=== PATIENT | male | born 1950 | race Caucasian/White ===

== ENCOUNTER 2019-01-05 09:56 | Inpatient (IN) ==
[2019-01-05 12:57] LABS: BASO# 0.04 X1000 (0.0-0.2); BASO% 0.6 % (0.0-0.8); EOS# 0.17 X1000 (0.0-0.7); EOS% 2.8 % (0.0-10.0); HEMATOCRIT 43.4 % (42.0-52.0); HEMOGLOBIN 14.1 g/dL (14.0-18.0); IMM GRAN# 0.12 X1000 (0.0-0.04); IMM GRAN% 1.9 % (0.0-0.5); LYMPH# 1.54 X1000 (1.2-3.4); LYMPH% 24.9 % (20.5-51.1); MCH 30.1 PG (27-31); MCHC 32.5 g/dL (33-37); MCV 92.5 FL (81-99); MONO# 0.75 X1000 (0.11-0.59); MONO% 12.1 % (1.7-9.3); MPV 9.1 FL (7.4-10.4); NEUT# 3.56 X1000 (1.4-6.5); NEUT% 57.7 % (42.2-75.2); PLT 236 X1000 (130-400); RBC 4.69 XMIL (4.7-6.1); RDW 13.6 % (11.5-14.5); WBC 6.18 X1000 (4.8-10.8)
[2019-01-05 13:01] LABS: INR 0.91
[2019-01-05 13:02] LABS: PTT 27.6 Seconds (22.3-41.8)
--- NOTE | 2019-01-05 13:02 | Diag Imaging Result Doc PS360 ---
EXAM: CHEST-2 VIEWS INDICATION: SOB TECHNIQUE: 2 views COMPARISON: 08/13/2017 FINDINGS: The lungs are grossly clear. There is no discrete pleural fluid collection or pneumothorax. The cardiomediastinal silhouette and central vasculature are grossly unremarkable. IMPRESSION: No evidence of acute pathology by plain radiograph. Electronically signed by Pop Umana 01/05/2019 1:00 PM
[2019-01-05 13:04] LABS: D-DIMER 1.41 ug/mLFEU (0.0-0.52)
[2019-01-05 13:12] LABS: ALLEN TEST YES; BE 4.5 mmoll (-3.0-3.0); BLOOD TYPE ARTERIAL; HCO3-(ACT) 28.3 mmoll (20.0-26.0); O2(CT) 18.6 mL/dL (15.0-23.0); PCO2(98.6) 49 mmHg (35-45); PO2(98.6) 66 mmHg (60-100); SAMPLE BLOOD; SAO2 94.7 % (95.0-100.0); THB 14.4 g/dL (11.5-17.4)
[2019-01-05 13:12] LABS: AGAP 11; ALB/GLOB RATIO 1.3; ALBUMIN 3.9 g/dL (3.5-5.0); ALKALINE PHOSPHATASE 60 U/L (32-122); BUN 16 mg/dL (8-22); CALCIUM 9.5 mg/dL (8.8-10.2); CHLORIDE 102 mmol/L (98-107); CK PROFILE 55 U/L (24-204); COSMO 291; CREATININE 0.9 mg/dL (0.7-1.2); ESTIMATED GFR > 60; GLUCOSE 145 mg/dL (70-104); GOT 11 U/L (10-34); GPT 10 U/L (10-44); MAGNESIUM 1.6 mg/dL (1.5-2.7); POTASSIUM 4.6 mmol/L (3.5-5.1); SODIUM 144 mmol/L (136-145); TCO2 31 mmol/L (25-35); TOTAL BILIRUBIN 0.23 mg/dL (0.20-1.00); TOTAL PROTEIN 6.8 g/dL (6.3-8.3)
[2019-01-05 13:13] LABS: MODALITY ROOM AIR
--- NOTE | 2019-01-05 13:19 | EKG Report ---
Test Performed on : 01/05/2019 1:07:16 PM Test Reason : SOB Blood Pressure : / mmHG Vent. Rate : 085 BPM Atrial Rate : 085 BPM P-R Int : 200 ms QRS Dur : 116 ms QT Int : 368 ms P-R-T Axes : 040 072 044 degrees QTc Int : 437 ms Normal sinus rhythm. Normal ECG When compared with ECG of 29-NOV-2007 11:57, Nonspecific T wave abnormality no longer evident in Anterior leads QT has shortened Confirmed by Owen TATE, Yaron Dockery ([id number]) on 01/07/2019 8:19:59 AM
[2019-01-05] MEDS ORDERED: LASIX IV ONE (13:30)
[2019-01-05] MEDS: LOVENOX SUBQ SCH (14:03)
[2019-01-05] MEDS: DUONEB (A & A) INH SCH ×3 (15:51→23:25)
--- NOTE | 2019-01-05 15:59 | Diag Imaging Result Doc PS360 ---
EXAM: CT ANGIOGRM PULMONARY ARTERIES HISTORY: chest pain TECHNIQUE: CT chest with intravenous contrast. Pulmonary arterial protocol with MIP images. COMPARISON: None. FINDINGS: No pleural effusions. No cardiomegaly. No thoracic aortic aneurysm or dissection. Normal opacification of the pulmonary arteries and their major branches. There are small calcified right hilar lymph nodes with scattered granuloma. Mild emphysematous changes. No consolidation. No bronchiectasis. IMPRESSION: No pulmonary emboli. This exam was performed using automated exposure control, adjustment of mA or kV according to patient size, and/or use of iterative reconstruction technique. Electronically signed by Willis Phillips 01/05/2019 3:57 PM
--- NOTE | 2019-01-05 18:17 | HISTORY AND PHYSICAL ---
CHIEF COMPLAINT: Shortness of breath. HISTORY OF PRESENT ILLNESS: This is a 68-year-old white gentleman complaining of chest congestion, cough, and shortness of breath. The patient was getting short of breath with minimal exertion. The patient was using his bronchodilator treatment. I started him on Lasix and potassium. The patient was not feeling any better. The patient claimed he was getting worse. I evaluated the patient in the office and decided to admit him for further care. The patient does have chronic cough with scanty sputum production. The patient does have some chills. No high- grade fever. The patient did have bilateral leg swelling. I did check his overnight pulse oximeter which was very borderline for hypoxemia. No nausea or vomiting. The patient does use E- cigarette. I did an echocardiogram 2 weeks ago to check for pulmonary hypertension and it was very borderline. No pleuritic type of chest pain or hemoptysis. The patient does have a runny nose, stuffy nose, sinus drainage. No postnasal drip. No typical chest pain or palpitations. He does have some orthopnea. No PND. Denied abdominal pain, nausea, vomiting. No diarrhea, blood, or mucus in the stool. No dysuria. The patient does have polyuria, polydipsia, at times urinary incontinence, bilateral leg swelling. No focal numbness, tingling, weakness. The patient does have a history of mood disorder, schizoaffective disorder, being followed up by psychiatrist. Claims compliant to medication. Arthritic pain in the knee. No focal numbness, tingling, weakness. Unquantified weight gain. No further history available at this time. ALLERGIES: Penicillin and sulfa. HOME MEDICATIONS: Albuterol, benztropine, Depakote, Lasix, , Zyprexa, potassium, propranolol, Requip, Zocor, Spiriva. PAST MEDICAL HISTORY: Significant for COPD, hyperlipidemia, restless legs syndrome, schizoaffective disorder, mood disorder, hyperlipidemia, bilateral leg swelling. PERSONAL HISTORY: Single. Smokes E-cigarettes. Denied alcohol or substance abuse. FAMILY HISTORY: Father of congestive heart failure. Mother of aspiration pneumonia. She did have a problem with heart disease. REVIEW OF SYSTEMS: As per HPI. Patient was complaining of pain in the lower back. PHYSICAL EXAMINATION: GENERAL: Elderly white gentleman, in mild distress. VITAL SIGNS: Blood pressure 125/80, pulse 94, respirations 20, temperature 98 degrees. SKIN: Normal turgor. HEENT: Head atraumatic, normocephalic. [place] conjunctivae. Anicteric sclerae. Extraocular muscle movement normal. Fundus cannot be penetrated. Good oral hygiene. No tonsillopharyngeal congestion or exudate. Ears and nose benign. NECK: Supple. No JVD, thyromegaly, or lymphadenopathy. CHEST: Bibasilar crepitation. Occasional wheezing. No rales. CARDIOVASCULAR: S1 and S2 heard. No gallop or thrill. ABDOMEN: Soft, globular. Bowel sounds present. EXTREMITIES: No cyanosis, clubbing. No acute DVT. Bilateral leg swelling. DIGITAL ARCHIVIST: Alert, awake. Able to move all 4 limbs. MUSCULOSKELETAL: Crepitation in both the knee joints. Tenderness lumbosacral spine. DIAGNOSTIC STUDIES: I did check his is electrolytes. Blood glucose was 145. ProBNP 58. Cardiac isoenzymes were normal. Blood gas, pH 7.4, pCO2 49, PO2 was 66; this was done on room air. PT/INR 0.91, PTT 27.6. D-dimer was 1.41. CBC: Hemoglobin 14.1, hematocrit 43.4, platelet count 236,000, WBC count 6.18. Chest x-ray: No evidence of acute pathology by plain x-ray. I did CTA of the pulmonary artery because of elevated D-dimer and it was negative for pulmonary embolism. Venous Doppler, preliminary report negative for DVT. CONSIDERATION: 1. Patient admitted with shortness of breath, most likely chronic obstructive pulmonary disease exacerbation, not responding to outpatient treatment. 2. Bilateral leg swelling. Possibility of congestive heart failure cannot be ruled out. 3. Morbid obesity. 4. Schizoaffective disorder. 5. Check for DVT and pulmonary embolism. 6. Low back pain. 7. Hyperlipidemia. 8. Restless legs syndrome. PLAN: Admit the patient. Bronchodilator treatment, close observation, oxygen. Overall plan discussed with the patient and he is in agreement. Continue home medications. cc: MD KENDRA Tyler
--- NOTE | 2019-01-05 19:46 | Diag Imaging Result Doc PS360 ---
EXAM: LUMBAR SPINE 2-VIEWS HISTORY: BACK PAIN TECHNIQUE: AP and lateral, three views COMPARISON: 11/01/2015 FINDINGS: There is good alignment to the lumbar spine. Mild old compression deformity to the L1 vertebra. No new compressed vertebra. No subluxation. Small degenerative bone spurring. Moderate atherosclerosis. IMPRESSION: Stable exam Electronically signed by Willis Phillips 01/05/2019 7:43 PM
[2019-01-05] MEDS: ZYPREXA PO SCH (20:54)
[2019-01-05] MEDS: DEPAKOTE ER PO SCH (20:55)
[2019-01-05] MEDS: REQUIP PO SCH (20:55)
[2019-01-05] MEDS: PATIENT'S OWN MED PO SCH (20:55)
[2019-01-05] MEDS: COGENTIN PO SCH (20:55)
[2019-01-05] MEDS: INDERAL PO SCH (20:55)
[2019-01-05] MEDS: ZOCOR PO SCH (20:55)
[2019-01-05] MEDS: VENTOLIN HFA INH SCH (21:32)
[2019-01-06 06:41] LABS: BASO# 0.04 X1000 (0.0-0.2); BASO% 0.6 % (0.0-0.8); EOS# 0.21 X1000 (0.0-0.7); HEMATOCRIT 40.5 % (42.0-52.0); HEMOGLOBIN 13.3 g/dL (14.0-18.0); IMM GRAN# 0.11 X1000 (0.0-0.04); IMM GRAN% 1.6 % (0.0-0.5); LYMPH# 2.43 X1000 (1.2-3.4); LYMPH% 35.3 % (20.5-51.1); MCH 30.2 PG (27-31); MCHC 32.8 g/dL (33-37); MONO# 1.18 X1000 (0.11-0.59); MONO% 17.1 % (1.7-9.3); MPV 9.1 FL (7.4-10.4); NEUT# 2.92 X1000 (1.4-6.5); NEUT% 42.4 % (42.2-75.2); PLT 211 X1000 (130-400); RDW 13.5 % (11.5-14.5); WBC 6.89 X1000 (4.8-10.8)
--- NOTE | 2019-01-06 06:44 | PROGRESS NOTE ---
DATE: 01/06/2019 SUBJECTIVELY: Mr. Bro is doing some better. The patient does have vague chest pain, dyspnea on exertion. Multiple risk factors for coronary artery disease. I did a CT scan of the chest which was negative for pulmonary embolism. His venous Doppler was negative. OBJECTIVE: Vital Signs: Vital signs noted. Neck: Supple. No JVD. Lungs: Bibasilar crepitations. Occasional wheezing. CVS: S1 and S2 heard. Abdomen: Soft, globular. Bowel sounds present. ELECTROTYPE FINISHER: Alert, awake. Able to move all 4 limbs. Vague tenderness lumbosacral spine. LABORATORY DATA: Done yesterday noted. D-dimer was elevated. The patient had x-ray done on the lumbosacral spine which did reveal mild compression deformity of L1. Moderate atherosclerosis, small degenerative bone spurring. ASSESSMENT: 1. COPD exacerbation. 2. Dyspnea on exertion with multiple risk factors for coronary artery disease. I am going to consider myocardial perfusion scan. Continue rest of the treatment. Close observation. 3. Fall precaution. 4. Encouraged smoking cessation. PLAN: Overall plan discussed with the patient and he is in agreement. cc: Pasha Goodrich MD
[2019-01-06 07:09] LABS: AGAP 10; ALB/GLOB RATIO 1.2; ALBUMIN 3.4 g/dL (3.5-5.0); ALKALINE PHOSPHATASE 52 U/L (32-122); BUN 20 mg/dL (8-22); CALCIUM 8.8 mg/dL (8.8-10.2); CHLORIDE 100 mmol/L (98-107); COSMO 289; CREATININE 0.9 mg/dL (0.7-1.2); ESTIMATED GFR > 60; GLUCOSE 156 mg/dL (70-104); GOT 10 U/L (10-34); GPT 8 U/L (10-44); MAGNESIUM 1.7 mg/dL (1.5-2.7); POTASSIUM 3.7 mmol/L (3.5-5.1); SODIUM 142 mmol/L (136-145); TCO2 32 mmol/L (25-35); TOTAL BILIRUBIN 0.29 mg/dL (0.20-1.00); TOTAL PROTEIN 6.2 g/dL (6.3-8.3)
[2019-01-06] MEDS: DUONEB (A & A) INH SCH ×5 (08:29→23:19)
[2019-01-06] MEDS: SPIRIVA INH SCH (08:31)
[2019-01-06] MEDS: VENTOLIN HFA INH SCH ×2 (08:31→19:45)
[2019-01-06] MEDS: INDERAL PO SCH ×2 (09:30→21:14)
[2019-01-06] MEDS: ASPIRIN EC PO SCH (09:30)
[2019-01-06] MEDS: COGENTIN PO SCH ×2 (09:30→21:15)
[2019-01-06] MEDS: PATIENT'S OWN MED PO SCH ×3 (09:31→21:16)
[2019-01-06] MEDS: LOVENOX SUBQ SCH (13:54)
[2019-01-06] MEDS: DEPAKOTE ER PO SCH (21:15)
[2019-01-06] MEDS: REQUIP PO SCH (21:15)
[2019-01-06] MEDS: ZOCOR PO SCH (21:15)
[2019-01-06] MEDS: ZYPREXA PO SCH (21:19)
--- NOTE | 2019-01-07 06:13 | Extremity Venous Study ---
PROCEDURE NAME: Venous U/S Bilateral Legs - 01/05/2019 REQUESTING PHYSICIAN: Dr. Goodrich WATER SOFTENER SERVICER AND INSTALLER: [place]. INDICATIONS: 1. Edema and pain, left leg worse. 2. History of DVT in the left. EQUIPMENT: [employer] Vivid E9 ultrasound system with a 9 L-D transducer. FINDINGS: Images of the bilateral lower extremity venous systems were obtained in both sagittal and transverse planes. Doppler was used to evaluate veins for spontaneity, phasicity, respiratory excursion, and digital augmentation. RESULTS: It appears the left greater saphenous vein has been harvested and is surgically absent. There is reflux noted in the right common femoral vein. There is no obvious superficial or deep venous thrombosis noted. INTERPRETATION: Reflux noted in the right common femoral vein but no obvious superficial or deep venous thrombosis noted. cc: MD Pasha Geller MD
--- NOTE | 2019-01-07 06:56 | PROGRESS NOTE ---
DATE: 01/07/2019 SUBJECTIVE: Mr. Menjivar is feeling some better. He still gets short of breath with exertion. He denied any fever or chills. Does have cough with scanty sputum production. No nausea or vomiting. OBJECTIVE: Vital Signs: Noted. Neck: Supple. No JVD. Lungs: Bibasilar crepitations. Heart: S1 and S2 heard. Abdomen: Soft, globular. Bowel sounds present. BOOK TRIMMER: Alert, awake. Able to move all 4 limbs. Minimal swelling around ankle and leg. CONSIDERATION: 1. Shortness of breath, most likely due to chronic obstructive pulmonary disease. 2. Chronic respiratory failure. The patient is scheduled to have a stress test today. The patient had an echocardiogram done as an outpatient. 3. Schizophrenia. 4. Hyperlipidemia, on Zocor. PLAN: Plan is to evaluate the patient for home oxygen need after reviewing stress test. Planning to discharge patient home soon. Overall plan discussed with the patient and he is in agreement. Encouraged smoking cessation and weight reduction. cc: Pasha Goodrich MD
[2019-01-07] MEDS: SPIRIVA INH SCH (07:06)
[2019-01-07] MEDS: DUONEB (A & A) INH SCH ×3 (07:06→15:51)
[2019-01-07] MEDS: VENTOLIN HFA INH SCH (07:09)
[2019-01-07 08:17] LABS: AGAP 8; BUN 16 mg/dL (8-22); CALCIUM 8.8 mg/dL (8.8-10.2); CHLORIDE 101 mmol/L (98-107); COSMO 283; CREATININE 0.8 mg/dL (0.7-1.2); ESTIMATED GFR > 60; GLUCOSE 113 mg/dL (70-104); POTASSIUM 4.2 mmol/L (3.5-5.1); SODIUM 141 mmol/L (136-145); TCO2 32 mmol/L (25-35)
[2019-01-07] MEDS ORDERED: LEXISCAN ONE (08:35)
[2019-01-07] MEDS ORDERED: LASIX PO SCH (09:00)
[2019-01-07] MEDS ORDERED: KLOR-CON PO SCH (09:00)
[2019-01-07] MEDS: INDERAL PO SCH (10:18)
[2019-01-07] MEDS: COGENTIN PO SCH (10:18)
[2019-01-07] MEDS: ASPIRIN EC PO SCH (10:19)
[2019-01-07] MEDS: PATIENT'S OWN MED PO SCH (10:20)
--- NOTE | 2019-01-07 12:50 | Diag Imaging Result Document ---
PROCEDURE NAME: MYOCARDIAL PERF SCAN, STR/REST - 01/06/2019 PROCEDURE PERFORMED: Lexiscan Cardiolite stress test. DESCRIPTION OF PROCEDURE: Lexiscan was infused per standard protocol. There was no chest pain. Baseline electrocardiogram revealed normal sinus rhythm, right bundle branch block. Stress electrocardiogram was negative for ischemia. There were 41 mCi of Cardiolite injected for the stress phase and 42.3 mCi of Cardiolite injected for the rest phase. Gated SPECT images were obtained in standard views. Images revealed significant chest wall and diaphragmatic attenuation. There is a moderate size, moderate grade, fixed defect noted in the inferior wall, in the inferoseptal wall. There is no evidence of ischemia. This could represent significant attenuation defect as well. Cannot rule out scar. Left ventricular ejection fraction by gated SPECT was 67%. Left ventricular cavity size was normal. CONCLUSIONS: 1. No chest pain. 2. Negative Lexiscan stress electrocardiogram. 3. Myocardial perfusion images revealed normal left ventricular cavity size. There is no evidence of ischemia. 4. There is a moderate size, moderate grade, fixed defect in the inferior, inferoseptal wall with significant diaphragmatic and chest wall attenuation. This could represent a scar. Cannot rule out attenuation defect. 5. Left ventricular ejection fraction by gated SPECT was 67%. cc: MD Pasha Mike MD
[2019-01-07] MEDS: LOVENOX SUBQ SCH (13:48)
[2019-01-07 16:00] VITALS: BP 114/64
--- NOTE | 2019-02-10 20:24 | DISCHARGE SUMMARY ---
ADMISSION DATE: 01/05/2019 DISCHARGE DATE: 01/07/2019 FINAL DISCHARGE DIAGNOSES: 1. Chronic obstructive pulmonary disease exacerbation. 2. Cor pulmonale. 3. Morbid obesity. 4. Chest pain, suggestive of unstable angina. 5. Schizoaffective disorder. 6. Low back pain. 7. Restless leg syndrome. 8. Hyperlipidemia. HISTORY OF PRESENT ILLNESS: Mr. Menjivar is a 68-year-old white gentleman, admitted with shortness of breath, increasing cough, bilateral leg swelling, also chest pain, decreased exercise tolerance, not responding to outpatient treatment. Patient was getting short of breath with minimal exertion. I evaluated patient in the office. Decided to admit him for further care. Patient was admitted to telemetry bed. His O2 saturation in the office at times was staying low. Patient was placed on telemetry. Patient was started on oxygen, bronchodilator treatment, symptomatic treatment. We continued his home medication. Patient had elevated D-dimer. I did venous Doppler. It did show reflux noted in the right common femoral vein, but no obvious DVT. I did CT of the pulmonary artery and there was no pulmonary embolism. Because of chest pain, I did myocardial perfusion study. It was negative Lexiscan stress electrocardiogram. Myocardial perfusion images revealed normal left ventricular cavity size, no evidence of ischemia, moderate size, moderate grade fixed defect in the inferior and inferoseptal mcall[place] with significant diaphragmatic and chest wall attenuation. This could present scar. Cannot rule out attenuation defect. Ejection fraction was 67%. Patient was complaining of low back pain. I did x-ray of the lumbosacral spine which did reveal mild old compression deformity to the L1, small degenerative bone spurring, and moderate atherosclerosis. Overall, patient's clinical condition stabilized and improved. I had a lengthy discussion with patient about smoking cessation, use oxygen at home all the time. Discharged him on Lasix, bronchodilator treatment. Follow up with me as scheduled in 7 days. Offered patient home health, but he declined. Encouraged weight reduction. I am going to consider sleep apnea test as an outpatient. In case of more distress, call us back or go to emergency room. Overall discharge condition satisfactory. cc: Pasha Goodrich MD
== END 2019-01-07 18:09 | disposition home or self-care (01) | DRG 191 ==
LOC: DIRADM 09:56 → 4N 12:06
PROVIDERS: ADMIT Internal Medicine; ATTEND Internal Medicine
CPT/HCPCS: 71020; 71046; 71275; 72100; 78452; 80048; 80053; 82550; 82805; 83735; 83880; 84484; 85025; 85379; 85610; 85730; 93005; 93010; 93017; 93970; 94640; 94762; A9270; A9500; J1650; J1940; J2785; Q9967

== ENCOUNTER 2019-09-12 17:07 | Inpatient (IN) ==
[2019-09-12 18:15] LABS: BASO# 0.04 X1000 (0.0-0.2); BASO% 0.2 % (0.0-0.8); EOS# 0.09 X1000 (0.0-0.7); EOS% 0.5 % (0.0-10.0); HEMATOCRIT 40.9 % (42.0-52.0); HEMOGLOBIN 12.9 g/dL (14.0-18.0); IMM GRAN# 0.15 X1000 (0.0-0.04); IMM GRAN% 0.9 % (0.0-0.5); LYMPH# 1.38 X1000 (1.2-3.4); LYMPH% 8.1 % (20.5-51.1); MCH 28.4 PG (27-31); MCHC 31.5 g/dL (33-37); MCV 89.9 FL (81-99); MONO# 3.34 X1000 (0.11-0.59); MONO% 19.6 % (1.7-9.3); MPV 9.5 FL (7.4-10.4); NEUT# 12.04 X1000 (1.4-6.5); NEUT% 70.7 % (42.2-75.2); PLT 286 X1000 (130-400); RBC 4.55 XMIL (4.7-6.1); RDW 13.8 % (11.5-14.5); WBC 17.04 X1000 (4.8-10.8)
[2019-09-12] MEDS ORDERED: DUONEB (A & A) INH ONE (18:19)
--- NOTE | 2019-09-12 18:22 | PROVIDER DOCUMENTATION ---
HPI-Syncope/Dizziness - General Chief Complaint: Fall Stated Complaint: SYNCOPE/FALL Time Seen by Provider: 09/12/19 18:00 Source: patient, family, EMS Allergies/Adverse Reactions: Patient Allergies Allergy/AdvReac Type Severity Reaction Status Date / Time Penicillins Allergy ITCHING Verified 01/05/19 13:15 Sulfa (Sulfonamide Allergy ITCHING Verified 01/05/19 13:15 Antibiotics) Home Medications: Home Medication List Medication Instructions Recorded Confirmed Last Taken Type Benztropine Mesylate 0.5 mg PO BID 01/05/19 09/12/19 01/05/19 History Divalproex Sodium [Divalproex 1,500 mg PO HS 01/05/19 09/12/19 01/04/19 History Sodium ER] Olanzapine 20 mg PO HS 01/05/19 09/12/19 01/04/19 History Potassium Chloride E.r. [Klor-Con] 10 meq PO BID 01/05/19 09/12/19 01/05/19 History Propranolol HCl 20 mg PO BID 01/05/19 09/12/19 01/05/19 History Ropinirole HCl 0.25 mg PO HS 01/05/19 09/12/19 01/04/19 History Tiotropium Rosser Inhaler 18 mcg INHALATION DAILY 01/05/19 09/12/19 01/04/19 History [Spiriva] Albuterol 2.5MG/Ipratrop 0.5MG 3 ml INH [id number] neb 01/07/19 09/12/19 Unknown Rx [Duoneb (A & A)] Albuterol Sulfate [Proair Hfa] 8.5 gm INHALATION 4XDAY #0 01/07/19 09/12/19 01/04/19 Rx Aspirin EC 81 mg PO DAILY tab 01/07/19 09/12/19 Unknown Rx ATORVAstatin [Lipitor] 80 mg PO DAILY 09/12/19 09/12/19 Unknown History Sitagliptin Phos/Metformin HCl 1 tab PO BID 09/12/19 09/12/19 Unknown History [Janumet 50-500 mg Tablet] - History of Present Illness-Syncope/Dizzy Nature of Presenting Problem: Patient is a 69yo M who presents, via EMS, accompanied by family after a fall which occurred this afternoon. Patient reports he was walking down his back brayan ps when he fell down. States he is unsure whether he slipped and fell or if he "blacked out," however reports he believes he "blacked out." Patient denies any preceding symptoms. Reports once on the ground, he was unable to get back up and he laid down on the ground outside for unknown amount of time. States his nephew found patient and called EMS. Patient denies any pain or complaints at this ester e, however reports he "can't move his right arm." Denies any headache, neck pain, back pain, extremity pain, CP, or SOB. Upon examination, patient is alert to person and place. Family members at bedside report patient will intermittently experience confusion "but be fine the next day." PERRLA 2mm. E FABIAN. Dirt noted to patient's face. Prior Episodes: reports: single episode today Onset/Duration: reports: this afternoon (unsure exact time) Timing: reports: improving Position/Activity at time of episode: reports: activity (walking down steps to backyard) Symptoms prior to episode: reports: none Context: reports: unknown (unsure; patient reports he thinks he "blacked out" but is not sure) Loss of Consciousness: unsure Location of injury. (If syncope resulted in an injury.): reports: RUE (Abrasion noted to R dorsal forearm, however patient denies pain) Current Symptoms: reports: none/feels normal Recently Seen Here or By Another Healthcare Provider: No Review of Systems - Adult - REVIEW OF SYSTEMS - ADULT Constitutional: reports: no symptoms reported. denies: chills, fever Eyes: reports: double vision (only when wearing his glasses; reports he saw eye yesterday who changed prescription although does not have new glasses yet). denies: decreased vision, blurred vision, eye pain Ears, Nose, Mouth & Throat: reports: no symptoms reported Cardiovascular: reports: no symptoms reported. denies: chest pain, palpitations Respiratory: reports: chronic cough (COPD), wheezing (chronic - COPD) Gastrointestinal: reports: constipation. denies: nausea, vomiting Genitourinary: reports: no symptoms reported Musculoskeletal: reports: see HPI, other ("can't move right arm"). denies: back pain, neck pain Integumentary: reports: see HPI, skin sores/ulcer Neurological: reports: see HPI, syncope. denies: dizziness/vertigo, headache/migraines, seizure Psychiatric: reports: no symptoms reported Endocrine: reports: no symptoms reported Past History - Adult - PAST MEDICAL HISTORY-ADULT Review of Records: reports: Nursing Assessment Review, Medications Reviewed Respiratory: reports: COPD Endocrine/Immune: reports: Diabetes - IMMUNIZATION STATUS Childhood Immunizations: See Nurse Assessment Flu Vaccine: See Nurse Assessment - FAMILY HISTORY Family History: reviewed, not pertinent - SOCIAL HISTORY Smoking: other (former) Physical Exam-General - PHYSICAL EXAM-ADULT Initial Vital Signs Reviewed: Yes - CONSTITUTIONAL General Appearance: appears well, alert, no apparent distress. negative: lethargic, slow to respond, obtunded - EYES Eyes: PERRL/EOMI (2mm), pink conjunctivae. negative: EOM palsy, scleral icterus - HEAD, EARS, NOSE, MOUTH & THROAT HENMT: normocephalic/atraumatic, moist mucous membranes, other (dirt noted to face). negative: angioedema - NECK Neck: non-tender, full range of motion, supple, normal inspection. negative: C- spine tenderness, limited range of motion - RESPIRATORY Respiratory: chest non-tender, lungs clear, no pleuratic chest pain, no respiratory distress, no accessory muscle use, wheezing (expiratory; all lung multani). negative: crackles, rales, rhonchi, stridor, retractions, splinting - CARDIOVASCULAR Cardiovascular: no gallop, tachycardia (108) - GASTROINTESTINAL (ABDOMEN) Abdominal Exam: normal bowel sounds, soft. negative: rebound - MUSCULOSKELETAL Back Exam: normal inspection, no vertebral tenderness. negative: vertebral tenderness Extremity: non-tender, normal capillary refill, abnormal NV exam (decreased sensation RUE/RLE). negative: normal range of motion (decreased ROM), deformity, tenderness Peripheral Pulses: radial (R): 2+, radial (L): 2+, dorsalis-pedis (R): 2+, dorsalis-pedis (L): 2+ - SKIN Integumentary: normal color, warm/dry, abrasion(s) (3cm circular superficial abrasion to R dorsal forearm). negative: cyanosis, jaundice, pallor - NEUROLOGIC Neurologic: no motor/sensory deficits (LUE/LLE), focal weakness (R sided), motor weakness (some movement RUE gravity eliminated, unable to lift RUE against gravity/resistance (0/5 seconds RUE); RLE against gravity, (3/5 seconds)), sensory deficit (RUE/RLE). negative: aphasia, EOM palsy, facial droop - PSYCHIATRIC Psych/Mental Status: normal mood/affect, other (oriented x2 (person/place)) Progress - PLAN OF CARE/RESULTS Progress/Plan/Lab Results: Vital Signs - 8 hr 09/12/19 17:36 09/12/19 17:59 09/12/19 18:20 Temperature 98.6 F Pulse Rate 108 H 109 H 106 H Pulse Rate [Sitting] Pulse Rate [Supine] Respiratory Rate 19 27 H 20 Blood Pressure 128/67 113/77 Blood Pressure [Sitting] Blood Pressure [Supine] O2 Sat by Pulse Oximetry 88 L 96 96 09/12/19 19:27 09/12/19 19:28 09/12/19 19:29 Temperature Pulse Rate 106 H 109 H Pulse Rate [Sitting] 106 H Pulse Rate [Supine] 104 H Respiratory Rate 22 23 Blood Pressure 127/77 105/63 Blood Pressure [Sitting] 105/63 Blood Pressure [Supine] 127/77 O2 Sat by Pulse Oximetry Laboratory Results - last 24 hr 09/12/19 09/12/19 09/12/19 18:02 18:02 18:02 WBC 17.04 H RBC 4.55 L Hgb 12.9 L Hct 40.9 L MCV 89.9 MCH 28.4 MCHC 31.5 L RDW Std Deviation 13.8 Plt Count 286 MPV 9.5 Immature Gran % (Auto) 0.9 H Neut % (Auto) 70.7 Lymph % (Auto) 8.1 L [place] % (Auto) 19.6 H Eos % (Auto) 0.5 Baso % (Auto) 0.2 Immature Gran # (Auto) 0.15 H Neut # (Auto) 12.04 H Lymph # (Auto) 1.38 [place] # (Auto) 3.34 H Eos # (Auto) 0.09 Baso # (Auto) 0.04 PT INR PTT (Actin FS) Sodium 140 Potassium 4.9 Chloride 98 Carbon Dioxide 27 Anion Gap 15 BUN 14 Creatinine 0.9 Estimated GFR/1.73 m2 > 60 BUN/Creatinine Ratio 16 Glucose 98 POC Glucose Calculated Osmolality 280 Calcium 8.7 L Total Bilirubin 0.46 AST 29 ALT 15 Alkaline Phosphatase 105 Creatine Kinase 986 H Creatine Kinase Index 0.4 CK-MB (CK-2) 4.40 Troponin T High Sens Hng-E-Wpjjyargmcu Pept 496 H Total Protein 6.0 L Albumin 3.3 L Globulin 2.7 Albumin/Globulin Ratio 1.2 Plasma Lactate Urine Source Urine Color Urine Turbidity Urine pH Ur Specific [place] Urine Protein Ur Glucose (Stick) Ur Ketones (Stick) Urine Blood Urine Nitrite Urine Bilirubin Urobilinogen Dipstick Urine Leukocytes Urine WBC (Auto) Urine RBC (Auto) U Epithel Cells (Auto) Urine Bacteria (Auto) Urine Crystals Small Round Cells Urine Casts Urine Yeast-like Cells Urine Opiates Screen Ur Oxycodone Screen Ur Methadone, Qual Ur Barbiturates Screen Ur Phencyclidine Scrn Ur Amphetamines Screen U Benzodiazepines Scrn Urine Cocaine Screen U Cannabinoids Screen 09/12/19 09/12/19 09/12/19 18:02 18:02 18:02 WBC RBC Hgb Hct MCV MCH MCHC RDW Std Deviation Plt Count MPV Immature Gran % (Auto) Neut % (Auto) Lymph % (Auto) [place] % (Auto) Eos % (Auto) Baso % (Auto) Immature Gran # (Auto) Neut # (Auto) Lymph # (Auto) [place] # (Auto) Eos # (Auto) Baso # (Auto) PT 14.0 INR 1.07 PTT (Actin FS) 30.9 Sodium Potassium Chloride Carbon Dioxide Anion Gap BUN Creatinine Estimated GFR/1.73 m2 BUN/Creatinine Ratio Glucose POC Glucose Calculated Osmolality Calcium Total Bilirubin AST ALT Alkaline Phosphatase Creatine Kinase Creatine Kinase Index CK-MB (CK-2) Troponin T High Sens 60 H* Wbn-L-Redqyijmbny Pept Total Protein Albumin Globulin Albumin/Globulin Ratio Plasma Lactate 1.6 Urine Source Urine Color Urine Turbidity Urine pH Ur Specific [place] Urine Protein Ur Glucose (Stick) Ur Ketones (Stick) Urine Blood Urine Nitrite Urine Bilirubin Urobilinogen Dipstick Urine Leukocytes Urine WBC (Auto) Urine RBC (Auto) U Epithel Cells (Auto) Urine Bacteria (Auto) Urine Crystals Small Round Cells Urine Casts Urine Yeast-like Cells Urine Opiates Screen Ur Oxycodone Screen Ur Methadone, Qual Ur Barbiturates Screen Ur Phencyclidine Scrn Ur Amphetamines Screen U Benzodiazepines Scrn Urine Cocaine Screen U Cannabinoids Screen 09/12/19 09/12/19 09/12/19 19:24 19:24 19:50 WBC RBC Hgb Hct MCV MCH MCHC RDW Std Deviation Plt Count MPV Immature Gran % (Auto) Neut % (Auto) Lymph % (Auto) [place] % (Auto) Eos % (Auto) Baso % (Auto) Immature Gran # (Auto) Neut # (Auto) Lymph # (Auto) [place] # (Auto) Eos # (Auto) Baso # (Auto) PT INR PTT (Actin FS) Sodium Potassium Chloride Carbon Dioxide Anion Gap BUN Creatinine Estimated GFR/1.73 m2 BUN/Creatinine Ratio Glucose POC Glucose 93 Calculated Osmolality Calcium Total Bilirubin AST ALT Alkaline Phosphatase Creatine Kinase Creatine Kinase Index CK-MB (CK-2) Troponin T High Sens Gia-C-Xwtjmtmyoft Pept Total Protein Albumin Globulin Albumin/Globulin Ratio Plasma Lactate Urine Source CLEAN CATCH Urine Color YELLOW Urine Turbidity CLEAR Urine pH 6.0 Ur Specific [place] 1.018 Urine Protein TRACE A Ur Glucose (Stick) NEGATIVE Ur Ketones (Stick) 20 A Urine Blood SMALL A Urine Nitrite NEGATIVE Urine Bilirubin NEGATIVE Urobilinogen Dipstick NORMAL Urine Leukocytes NEGATIVE Urine WBC (Auto) <10 Urine RBC (Auto) <10 U Epithel Cells (Auto) <10 Urine Bacteria (Auto) NEGATIVE Urine Crystals NONE SEEN Small Round Cells Not Reportable Urine Casts NONE SEEN Urine Yeast-like Cells NONE SEEN Urine Opiates Screen NONE DETECTED Ur Oxycodone Screen NONE DETECTED Ur Methadone, Qual NONE DETECTED Ur Barbiturates Screen NONE DETECTED Ur Phencyclidine Scrn NONE DETECTED Ur Amphetamines Screen NONE DETECTED U Benzodiazepines Scrn NONE DETECTED Urine Cocaine Screen NONE DETECTED U Cannabinoids Screen NONE DETECTED Orders Category Date Time Status ED: Orthostatic Vital Signs (E DIRECTED Care 09/12/19 18:02 Active FSBS [Finger Stick Blood Sugar (ED)] DIRECTED Care 09/12/19 18:02 Active Oxygen Therapy- ED Nursing DIRECTED Care 09/12/19 18:19 Active Update & Confirm Home Medicati ROUTINE Care 09/12/19 18:20 Active CHEST-2 VIEWS [RAD] Stat Exams 09/12/19 18:[address] HEAD/C-SPINE W/O CONTRAST [CT] Stat Exams 09/12/19 18:01 Completed FOREARM-RIGHT [RAD] Stat Exams 09/12/19 18:20 Completed XRAY HIP W/PELVIS BILAT 3-4VWS [RAD] Stat Exams 09/12/19 18:22 Completed BLOOD CULTURE [BLDCUL] Stat Lab 09/12/19 19:18 Results CBC WITH ELECTRONIC DIFF [HEME] Stat Lab 09/12/19 18:02 Completed CK PROFILE [SP CHEM] Stat Lab 09/12/19 18:02 Completed COMPREHENSIVE METABOLIC PANEL [CHEM] Stat Lab 09/12/19 18:02 Completed LACTATE, PLASMA [CHEM] Lab 09/12/19 21:45 Uncollected LACTATE, PLASMA [CHEM] Lab 09/13/19 00:45 Uncollected LACTATE, PLASMA [CHEM] Q3H Lab 09/12/19 18:02 Completed PRO B-NATRIURETIC PEPTIDE Stat Lab 09/12/19 18:02 Completed PROTIME WITH INR [COAG] Stat Lab 09/12/19 18:02 Completed PTT [COAG] Stat Lab 09/12/19 18:02 Completed TROPONIN T HIGH SENSITIVITY Stat Lab 09/12/19 18:02 Completed URINALYSIS W/POSS RFLX CULT [URINALYSIS] Stat Lab 09/12/19 19:24 Completed URINE DRUG SCREEN Stat Lab 09/12/19 19:24 Completed URINE MANUAL MICROSCOPIC [URINALYSIS] Stat Lab 09/12/19 19:24 Completed Albuterol 2.5MG/Ipratrop 0.5MG [Duoneb (A & A)] Med 09/12/19 18:19 Discontinued 3 ml INH NOW ONE Aerosol Treatments Routine Oth 09/12/19 18:19 Completed Aerosol Treatments Stat Oth 09/12/19 18:19 Completed EKG [EKG] Stat Ther 09/12/19 18:02 Ordered 1736: Patient's triage RA O2 saturation 88%. Patient reports hx of COPD and PRN/QHS O2. Denies SOB. Patient placed on 2L O2 for comfort/maintenance of sat. Result Diagrams: 09/12/19 18:02 09/12/19 18:02 - EKG 1 Time of EKG reading by physician:: 19:45 EKG Read and Signed by:: Finn Workman EKG Interpretation (*Must complete 3 of following elements*): Abnormal Rate: 107 Rhythm: Sinus tach [place]: normal QRS: RBB GA Interval: normal ST Wave: normal Prior EKG Comparison: changes noted (RBB new since prior EKG in December 2018) - CHANGE OF SHIFT REPORT (ED Provider) 1 Report Given and Care Transferred to:: Dr. Workman Time of Transfer: 19:25 Items Pending: Labs, XRAY Results, CT/MRI Results Departure - Departure Date of Disposition Decision: 09/12/19 Time of Disposition Decision: 21:20 DIAGNOSIS: CVA (cerebral vascular accident) Disposition: ADMITTED INPATIENT 09 Certified Medical Emergency: Emergent Condition: Fair Referrals and Follow-Ups: Pasha Goodrich MD [Primary Care Provider] - - Critical Care Note This patient required my direct & personal management of CC.: No Attestation - Physician/ JOSE Attestation Patient care was provided by Advanced Practice Provider:: Yes Advanced Practice Provider:: Antonia Weaver Advanced Practice Provider documentation review:: The Mid-level provider documentation, treatment plan and medical decision making was reviewed by the physician who agrees with all treatment and medical decision making by the MLP. The physician spent face to face time with patient:: Yes Advanced Practice Provider documentation review:: Supervising physician onsite and consulted in the evaluation and care of this patient. The physician did have a face to face encounter with the patient.
[2019-09-12 18:42] LABS: AGAP 15; ALB/GLOB RATIO 1.2; ALBUMIN 3.3 g/dL (3.5-5.0); ALKALINE PHOSPHATASE 105 U/L (32-122); BUN 14 mg/dL (8-22); CALCIUM 8.7 mg/dL (8.8-10.2); CHLORIDE 98 mmol/L (98-107); COSMO 280; CREATININE 0.9 mg/dL (0.7-1.2); ESTIMATED GFR > 60; GLUCOSE 98 mg/dL (70-104); GOT 29 U/L (10-34); GPT 15 U/L (10-44); POTASSIUM 4.9 mmol/L (3.5-5.1); SODIUM 140 mmol/L (136-145); TCO2 27 mmol/L (25-35); TOTAL BILIRUBIN 0.46 mg/dL (0.20-1.00)
[2019-09-12 18:47] LABS: CK PROFILE 986 U/L (24-204)
[2019-09-12 18:55] LABS: INR 1.07
[2019-09-12 18:56] LABS: PTT 30.9 Seconds (22.3-41.8)
[2019-09-12 19:01] LABS: CK INDEX 0.4 (0.0-2.5)
--- NOTE | 2019-09-12 19:24 | Diag Imaging Result Doc PS360 ---
EXAM: CT HEAD/C-SPINE W/O CONTRAST INDICATION: Syncope; fall TECHNIQUE: This exam was performed using automated exposure control, adjustment of mA or kV according to patient size, and/or use of iterative reconstruction technique. COMPARISON: None. FINDINGS: Head: There is suggestion of very minimal periventricular white matter microangiopathy. There is no definite acute infarct given the limited sensitivity of CT versus MRI. There is no discrete intracranial mass, mass effect, or intracranial hemorrhage. The surrounding soft tissues are essentially unremarkable. The calvaria is intact. C-spine: There is extensive multilevel facet arthropathy, worse on the left. There is also multilevel degenerative disc disease with loss of disc space height and marginal osteophyte formation at several levels, most significant at C6-7. Otherwise, there is no discrete fracture, subluxation, or intrinsic osseous lesion. The surrounding soft tissues are essentially unremarkable. IMPRESSION: 1.Suggestion of minimal white matter microangiopathy. No evidence of acute intracranial pathology. 2.Multilevel degenerative arthropathy as described. No evidence of fracture or other definite acute C-spine injury. Electronically signed by Pop Umana 09/12/2019 7:22 PM
--- NOTE | 2019-09-12 19:42 | Diag Imaging Result Doc PS360 ---
EXAM: XRAY HIP W/PELVIS BILAT 3-4VWS INDICATION: Fall; unable to bear weight TECHNIQUE: 5 views COMPARISON: 10/08/2012 FINDINGS: There is no discrete fracture, dislocation, or significant intrinsic osseous lesion involving the hips or pelvis. The hip joint spaces are preserved. Surrounding soft tissues are essentially unremarkable. IMPRESSION: No evidence of acute osseous abnormality. Electronically signed by Pop Umana 09/12/2019 7:39 PM
--- NOTE | 2019-09-12 19:43 | Diag Imaging Result Doc PS360 ---
EXAM: FOREARM-RIGHT INDICATION: Fall; arm pain TECHNIQUE: 2 views COMPARISON: None. FINDINGS: There is no discrete fracture, dislocation, or significant intrinsic osseous lesion. The visualized joint spaces are essentially unremarkable. The surrounding soft tissues are essentially unremarkable. IMPRESSION: No evidence of acute osseous abnormality. Electronically signed by Pop Umana 09/12/2019 7:41 PM
--- NOTE | 2019-09-12 19:43 | Diag Imaging Result Doc PS360 ---
EXAM: CHEST-2 VIEWS INDICATION: Syncope TECHNIQUE: 2 views COMPARISON: 01/05/2019 FINDINGS: The lungs are grossly clear. There is no discrete pleural fluid collection or pneumothorax. The cardiomediastinal silhouette and central vasculature are grossly unremarkable. IMPRESSION: No evidence of acute pathology by plain radiograph. Electronically signed by Pop Umana 09/12/2019 7:40 PM
[2019-09-12 19:46] LABS: URINE SOURCE CLEAN CATCH
[2019-09-12 19:57] LABS: BILIRUBIN URINE NEGATIVE (NEGATIVE); BLOOD URINE SMALL (NEGATIVE); COLOR YELLOW; GLUCOSE URINE NEGATIVE (NEGATIVE); KETONE URINE 20 mg/dL (NEGATIVE); LEUKOCYTES URINE NEGATIVE (NEGATIVE); NITRITE URINE NEGATIVE (NEGATIVE); PROTEIN URINE TRACE mg/dL (NEGATIVE); SP GRAVITY URINE 1.018; TURBIDITY URINE CLEAR (CLEAR); UROBILINOGEN URINE NORMAL (NORMAL)
[2019-09-12 20:00] LABS: UR AMPHETAMINES QUAL NONE DETECTED (NONE DETECT); UR BARBITUATES QUAL NONE DETECTED (NONE DETECT); UR BENZODIAZEPIN QUAL NONE DETECTED (NONE DETECT); UR CANNABINOIDS QUAL NONE DETECTED (NONE DETECT); UR COCAINE QUAL NONE DETECTED (NONE DETECT); UR METHADONE QUAL NONE DETECTED (NONE DETECT); UR OPIATES QUAL NONE DETECTED (NONE DETECT); UR OXYCODONE QUAL NONE DETECTED (NONE DETECT); UR PCP QUAL NONE DETECTED (NONE DETECT)
[2019-09-12 20:07] LABS: UR EPITHELIAL CELLS <10 /HPF (<10); URINE BACTERIA NEGATIVE /HPF; URINE RBC <10 /HPF (<10); URINE WBC <10 /HPF (<10)
[2019-09-12 20:36] LABS: URINE CASTS NONE SEEN; URINE CRYSTALS NONE SEEN; URINE YEAST NONE SEEN
[2019-09-12] MEDS ORDERED: NITROGLYCERIN TOP PRN (22:35)
[2019-09-12] MEDS: NS 1,000 ML IV SCH (22:45)
--- NOTE | 2019-09-12 22:54 | EKG Report ---
Test Performed on : 09/12/2019 7:45:58 PM Test Reason : Syncope Blood Pressure : / mmHG Vent. Rate : 107 BPM Atrial Rate : 107 BPM P-R Int : 190 ms QRS Dur : 126 ms QT Int : 356 ms P-R-T Axes : 042 089 053 degrees QTc Int : 475 ms Sinus tachycardia. Right bundle branch block Abnormal ECG When compared with ECG of 05-JAN-2019 13:07, Right bundle branch block is now present Unconfirmed Result
[2019-09-12] MEDS ORDERED: LOVENOX SUBQ SCH (23:00)
[2019-09-13] MEDS: NS 1,000 ML IV SCH ×3 (00:43→13:30)
[2019-09-13] MEDS ORDERED: MIRALAX PO ONE (01:15)
[2019-09-13] MEDS ORDERED: COGENTIN PO ONE (01:22)
[2019-09-13] MEDS ORDERED: DEPAKOTE ER PO ONE (01:29)
[2019-09-13] MEDS ORDERED: ZYPREXA PO ONE (01:31)
[2019-09-13 02:08] LABS: CK INDEX 0.2 (0.0-2.5); CK-MB 5.39 ng/mL (0.0-5.0)
[2019-09-13 02:16] LABS: URINE SOURCE CATH
[2019-09-13 02:21] LABS: BILIRUBIN URINE NEGATIVE (NEGATIVE); BLOOD URINE NEGATIVE (NEGATIVE); COLOR YELLOW; GLUCOSE URINE NEGATIVE (NEGATIVE); KETONE URINE TRACE mg/dL (NEGATIVE); LEUKOCYTES URINE NEGATIVE (NEGATIVE); NITRITE URINE NEGATIVE (NEGATIVE); PH URINE 6.5; PROTEIN URINE NEGATIVE (NEGATIVE); SP GRAVITY URINE 1.014; TURBIDITY URINE CLEAR (CLEAR); UROBILINOGEN URINE NORMAL (NORMAL)
[2019-09-13 02:22] LABS: UR EPITHELIAL CELLS <10 /HPF (<10); URINE BACTERIA NEGATIVE /HPF; URINE RBC <10 /HPF (<10); URINE WBC <10 /HPF (<10)
[2019-09-13] MEDS: COLACE PO SCH ×3 (02:38→21:47)
[2019-09-13] MEDS ORDERED: DUONEB (A & A) INH PRN (05:20)
--- NOTE | 2019-09-13 05:42 | Diag Imaging Result Doc PS360 ---
EXAM: KUB ABDOMEN HISTORY: Abd. distention,poss. Constipation TECHNIQUE: Single view COMPARISON: None. FINDINGS: No bowel obstruction. There is stool in the proximal and mid colon. No organomegaly. There are pelvic phleboliths. Catheter overlies the pelvis. No abnormal abdominal calcifications. IMPRESSION: Mild constipation Electronically signed by Willis Phillips 09/13/2019 5:40 AM
--- NOTE | 2019-09-13 07:19 | HISTORY AND PHYSICAL ---
CHIEF COMPLAINT: Loss of consciousness. HISTORY OF PRESENT ILLNESS: Mr. Maxim Menjivar is a 69-year-old male who has a history of diabetes mellitus, hypertension, schizophrenia, bipolar disorder, COPD, and the patient did experience a brief period of loss of consciousness prior to admission. The patient indicates that he passed out in his back yard, the duration of which is not exactly known. The patient was subsequently brought to the hospital. He now complains of weakness involving the right side, worse on the right upper extremity than right lower extremity. He denies any headaches, dizziness, blurred vision, or seizures. At the time of presentation, he had a CT scan of the brain done, which did not show any acute findings. The patient will now be admitted to the floor for further management. PAST MEDICAL HISTORY: Diabetes mellitus, hypertension, schizophrenia, bipolar disorder, COPD. PAST SURGICAL HISTORY: He has had hemorrhoidectomy, as well as vein stripping. He has also had surgery for a fractured left clavicle. ALLERGIES: Allergic to penicillin as well as sulfur. SOCIAL HISTORY: No history of cigarette smoking, alcohol, or drug use. MEDICATIONS: Include the following: Benztropine 0.5 mg p.o. twice a day, valproic acid 50 mg p.o. at bedtime, olanzapine 20 mg p.o. at bedtime, potassium chloride 10 mEq p.o. twice a day, propranolol 10 mg p.o. twice a day, ropinirole 0.25 mg p.o. at bedtime, Spiriva inhaler daily, DuoNeb 3 mL every 4 hours, ProAir 4 times a day, aspirin 81 mg p.o. daily, atorvastatin 80 mg p.o. day, Janumet 50/500 twice a day. REVIEW OF SYSTEMS: Constitutional: No fever. 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 Eyes: He uses glasses. ENT: No sinus problem. Cardiovascular: No chest pain. Respiratory: Has cough. GI: No nausea, vomiting, diarrhea. No abdominal pain. : No dysuria. Musculoskeletal: No joint pains. Dermatology: No skin lesions. Hematology: No bleeding problems. Psychiatry: Has bipolar disorder as well as schizophrenia. Allergy/Immunology: Has symptoms of allergic rhinitis, specifically sneezing. PHYSICAL EXAMINATION: VITAL SIGNS: On admission, temperature is 98.2 degrees, pulse 96, respirations 19, blood pressure is 137/77, oxygen saturation is 97%. HEENT: Atraumatic, normocephalic. He is anicteric. Extraocular movements intact. No oral lesions noted. NECK: Supple. No jugular venous distention. No lymphadenopathy or thyromegaly. CARDIOVASCULAR: S1, S2. RESPIRATORY: Has evidence of good air entry bilaterally. ABDOMEN: Soft, obese, nontender. No masses felt. EXTREMITIES: No evidence of edema. CENTRAL NERVOUS SYSTEM: The patient is awake, alert, well oriented. The patient has decreased strength in the right upper extremity, about 3/5, and has good strength in the lower extremities. There is no evidence of sensory loss. The patient's gait was not assessed. IMAGING AND LABORATORY DATA: WBC 17.04, hematocrit is 40.9, with a platelet count of 226,000. INR is 1.07. Sodium is 140, potassium 4.9, chloride 98, bicarb 27, BUN is 14, creatinine 0.9. Troponin level is 38. X-ray of the chest: No evidence of any abnormality. CT scan of the brain: No acute findings noted. ASSESSMENT AND PLAN: 1. Probable acute cerebrovascular accident. Start the patient on antiplatelet agent, statin. Place the patient on telemetry. Maintain the patient on intravenous fluids. Obtain an MRI of the brain, as well as MRA of the head and neck, and a 2D echocardiogram of the heart. Request physical therapy, occupational therapy, speech therapy, and swallow evaluation. Maintain the patient on deep venous thrombosis prophylaxis. Check lipid panel, as well as hemoglobin A1c level. 2. Diabetes mellitus. Maintain the patient on sliding scale insulin. Monitor blood sugar levels. Check hemoglobin A1c level. 3. Hypertension. Allow for permissive hypertension in light of possible acute cerebrovascular accident. 4. Bipolar disorder. Continue proper psychiatric medications. 5. Schizophrenia. Continue proper psychiatric medications. 6. Chronic obstructive pulmonary disease. Nebulized bronchodilators as needed. 7. Elevated troponin. Consult with Cardiology. 8. Anemia. Check iron studies, along with B12 and folate level. Stool for occult blood. 9. Leukocytosis. Follow up on blood cultures, as well as flu test. 10. Deep vein thrombosis prophylaxis. Lovenox. 11. Gastrointestinal prophylaxis. Proton pump inhibitor. cc: MD Pasha Rivero MD
[2019-09-13 08:20] LABS: CHOLESTEROL 103 mg/dL (0-200); HDL 23 mg/dL (35-55); LDL 58 mg/dL; TRIGLYCERIDES 109 mg/dL (39-160); VLDL 22 mg/dL
[2019-09-13 08:47] LABS: HEMOGLOBIN A1C 5.5 % (4.8-6.0)
--- NOTE | 2019-09-13 08:49 | Diag Imaging Result Doc PS360 ---
EXAM: SHOULDER 1 VIEW RIGHT HISTORY: r/o right shoulder injury TECHNIQUE: Single view COMPARISON: None. FINDINGS: No fracture. No dislocation. No separation to the acromioclavicular joint. IMPRESSION: No acute bony injury. Electronically signed by Willis Phillips 09/13/2019 8:46 AM
[2019-09-13] MEDS ORDERED: COGENTIN PO SCH (09:00)
[2019-09-13 09:06] LABS: CK INDEX 0.2 (0.0-2.5); CK-MB 4.53 ng/mL (0.0-5.0)
[2019-09-13] MEDS: LIPITOR PO SCH (09:28)
[2019-09-13] MEDS: INDERAL PO SCH ×2 (09:28→21:46)
[2019-09-13] MEDS: ASPIRIN EC PO SCH (09:28)
[2019-09-13] MEDS: COREG PO SCH ×2 (09:29→21:47)
[2019-09-13] MEDS: PRILOSEC PO SCH (09:30)
--- NOTE | 2019-09-13 12:47 | CARDIOLOGY CONSULTATION ---
DATE: 09/13/2019 REASON FOR CONSULTATION: Cardiology was consulted for syncope, CVA. HISTORY OF PRESENT ILLNESS: Mr. Maxim Menjivar is a 69-year-old, gentleman with history of diabetes, hypertension, schizophrenia, bipolar disorder, COPD, who had an experience of loss of consciousness. The patient does not remember. He passed out in the backyard. The patient was subsequently brought to the hospital. When he was in the emergency room, he was noted to have some weakness in the right upper extremity and lower extremity. He underwent a CT scan, which was unremarkable. He is scheduled to undergo MRI and MRA in the morning. The patient was admitted to the floor for further management. From a cardiac standpoint, the patient does not complain of having any chest pains. There is no history of palpitations. He does not remember the circumstances preceding this episode. REVIEW OF SYSTEMS: A 14-point review of system was done. GI: There is no history of nausea, vomiting, diarrhea. There is no history of hematemesis or melena. Central Nervous System: Has had focal weakness to suggest a CVA, TIA. However, he does not complain of any weakness at the time of my examination. : There is no dysuria or hematuria. PAST MEDICAL/SURGICAL HISTORY: 1. Hypertension. 2. Diabetes. 3. Schizophrenia. 4. Bipolar disorder. 5. COPD. 6. History of hemorrhoidectomy. 7. History of fracture of the clavicle. ALLERGIES: He is allergic to penicillin and sulfonamides. HOME MEDICATIONS: Include benztropine, valproic acid, Olanzapine, potassium supplements, propranolol 10 b.i.d., Spiriva inhalers, atorvastatin 80, Janumet 5500, DuoNeb. PHYSICAL EXAMINATION: Vital Signs: Blood pressure was 137/77. Cardiovascular: Normal jugular venous pressure. There is no thyromegaly. There is no carotid bruit. Heart: First and second heart sounds were heard. There was no S3 gallop. Respiratory: Normal air entry. There are no crepitations or rhonchi. Central Nervous System: Alert, oriented. He has mild weakness in the right hand grocery carrier, otherwise detailed central nervous system examination not performed. DIAGNOSTIC DATA: Electrocardiogram revealed right bundle-branch block. IMAGING AND LABORATORY DATA: Two sets of troponin, high sensitive, were negative. Sodium 140, potassium 4.9, BUN 14, creatinine 0.9. AST 29, ALT 15. Hematology: WBC 17, hemoglobin 12.9, hematocrit 40, platelet count of 286,000. CT scan of chest and spine: Minimal white matter microangiopathy, multilevel degenerative arthropathy cervical spine disease noted. Chest x-ray was unremarkable. He had x-ray of his pelvis and hip. ASSESSMENT AND PLAN: 1. Mr. Maxim Menjivar is a 69-year-old, gentleman with history of hypertension, diabetes, schizophrenia, had a syncopal episode, had weakness when he presented to the emergency room. He has improved significantly. He is scheduled to undergo an MRI and MRA in the morning. 2. From a cardiac standpoint, his electrocardiogram revealed right bundle-branch block, change from previous electrocardiogram. His troponin, 2 sets, are negative. I will get another level of troponin. In addition, will get an echocardiogram to assess cardiac and valvular function. This episode appears to be related to a cerebrovascular accident. Will follow hospital course. 3. Hypertension. Continue with home medications as planned. Permissive given his possible cerebrovascular accident. 4. He is on medications for bipolar depression and schizophrenia and chronic obstructive pulmonary disease. Have not made any changes. Thank you for the consult. Will follow hospital course. cc: MD Pasha Mike MD
[2019-09-13 16:36] LABS: CK INDEX 0.2 (0.0-2.5); CK-MB 2.96 ng/mL (0.0-5.0)
[2019-09-13] MEDS: DUONEB (A & A) INH SCH ×2 (19:40→23:28)
--- NOTE | 2019-09-13 20:28 | PROGRESS NOTE ---
DATE: 09/13/2019 SUBJECTIVE: Mr. Menjivar is doing better, complaining of weakness in the right upper limb. No typical chest pain, palpitation. Admission history and physical reviewed. Cardiology consult also noted. Waiting for neurologist evaluation. X-ray of the right shoulder did not reveal any acute injury. OBJECTIVE: His vital signs noted. Neck is supple. No JVD.Lungs: Bibasilar crepitations. Occasional wheezing. Heart: S1 and S2 heard. Abdomen: Soft, globular. Bowel sounds present. GRADES 1 THROUGH 6 TEACHER: Alert, awake. Answering questions fairly well. CONSIDERATION: 1. Patient does have right upper limb weakness. 2. History of fall. 3. COPD. 4. Hyperlipidemia. 5. Gastritis and reflux disease. 6. Sleep apnea. 7. We are going to do detailed workup. Neurology consult. Check appropriate labs. The patient does have NIDDM. Last hemoglobin A1c was benign. cc: Pasha Goodrich MD
[2019-09-13] MEDS ORDERED: ZYPREXA PO SCH (21:00)
[2019-09-13] MEDS ORDERED: DEPAKOTE ER PO SCH ×2 (21:00)
[2019-09-13] MEDS: REQUIP PO SCH (21:47)
[2019-09-13] MEDS: COGENTIN PO SCH (21:47)
[2019-09-13] MEDS: ZYPREXA PO SCH (21:48)
[2019-09-13] MEDS: KLOR-CON PO SCH (21:53)
[2019-09-14] MEDS: NS 1,000 ML IV SCH ×2 (00:43→18:00)
[2019-09-14] MEDS: PRILOSEC PO SCH (06:15)
--- NOTE | 2019-09-14 07:21 | PROGRESS NOTE ---
DATE: 09/14/2019 SUBJECTIVE: Mr. Menjivar admitted yesterday status post fall complaining of pain in the right shoulder. The patient also had syncopal episode which was transient complaining of weakness in the right arm, also pain in the right shoulder. His x-ray of the right shoulder is negative. He denied any typical chest pain. The patient does have chronic cough, history of COPD, no nausea or vomiting. The patient claimed weakness in the right upper limb seems to be improving. No dysuria or hematuria. No urinary retention. His admission history and physical noted. PAST MEDICAL HISTORY: Mood disorder, schizophrenia, hypertension, COPD, restless leg syndrome, hyperlipidemia. OBJECTIVE: Vital Signs: Vital signs noted. Blood pressure 128/62, pulse 86, respiration 18, temperature 98.3 degrees. Neck: Neck is supple. No JVD. Lungs: Bibasilar crepitations. Heart: S1 and S2 heard. Abdomen: Soft, globular. Bowel sounds present. Extremities: No cyanosis, clubbing. No acute DVT. Patient had good handgrip both hands, but weakness in the right upper limb. CONSIDERATION: Patient admitted with syncope, weakness in the right upper limb, chronic obstructive pulmonary disease and insulin-dependent diabetes mellitus. Last hemoglobin A1c was good. Hyperlipidemia, restless leg syndrome, schizophrenia. The patient is waiting for neurologist evaluation. His hemoglobin A1c and lipid panel results reviewed. We will consider physical therapy evaluation, neurologist evaluation and fall precaution. cc: Pasha Goodrich MD
[2019-09-14 07:39] LABS: BASO# 0.02 X1000 (0.0-0.2); BASO% 0.2 % (0.0-0.8); EOS% 0.9 % (0.0-10.0); HEMATOCRIT 36.1 % (42.0-52.0); HEMOGLOBIN 11.1 g/dL (14.0-18.0); IMM GRAN% 0.9 % (0.0-0.5); LYMPH# 1.28 X1000 (1.2-3.4); LYMPH% 11.4 % (20.5-51.1); MCH 27.9 PG (27-31); MCHC 30.7 g/dL (33-37); MCV 90.7 FL (81-99); MONO# 1.85 X1000 (0.11-0.59); MONO% 16.5 % (1.7-9.3); MPV 9.3 FL (7.4-10.4); NEUT# 7.85 X1000 (1.4-6.5); NEUT% 70.1 % (42.2-75.2); PLT 253 X1000 (130-400); RBC 3.98 XMIL (4.7-6.1); RDW 13.7 % (11.5-14.5)
[2019-09-14] MEDS: DUONEB (A & A) INH SCH ×5 (07:53→23:21)
[2019-09-14 07:58] LABS: AGAP 10; ALB/GLOB RATIO 0.7; ALBUMIN 2.4 g/dL (3.5-5.0); ALKALINE PHOSPHATASE 80 U/L (32-122); BUN 9 mg/dL (8-22); CALCIUM 8.3 mg/dL (8.8-10.2); CHLORIDE 104 mmol/L (98-107); COSMO 279; CREATININE 0.8 mg/dL (0.7-1.2); ESTIMATED GFR > 60; GLUCOSE 110 mg/dL (70-104); GOT 41 U/L (10-34); GPT 14 U/L (10-44); IRON SATURATION 11 %; POTASSIUM 3.9 mmol/L (3.5-5.1); SODIUM 140 mmol/L (136-145); TCO2 26 mmol/L (25-35); TIBC 152 ug/dL; TOTAL BILIRUBIN 0.36 mg/dL (0.20-1.00); TOTAL IRON 16 ug/dL (53-167); TOTAL PROTEIN 5.7 g/dL (6.3-8.3); UNBOUND IRON 136 ug/dL (112-346)
[2019-09-14 08:13] LABS: FERRITIN 488 ng/mL (30-400)
--- NOTE | 2019-09-14 09:54 | Diag Imaging Result Doc PS360 ---
MRI BRAIN W/O CONTRAST - 09/13/2019 INDICATION: cva COMPARISON: Head CT 09/12/2019 FINDINGS: There is severe patient motion artifact. There is no area of restricted diffusion. No evidence of intracranial mass or hemorrhage. There is probably some chronic microvascular ischemia. Overall brain volume is grossly normal. IMPRESSION: No evidence for acute stroke. Electronically signed by Mohan Hernandez 09/14/2019 9:52 AM
[2019-09-14] MEDS: ASPIRIN EC PO SCH (10:02)
[2019-09-14] MEDS: INDERAL PO SCH ×2 (10:02→20:42)
[2019-09-14] MEDS: KLOR-CON PO SCH ×2 (10:02→20:42)
[2019-09-14] MEDS: LIPITOR PO SCH (10:03)
[2019-09-14] MEDS: COGENTIN PO SCH ×2 (10:03→20:43)
[2019-09-14] MEDS: COLACE PO SCH ×2 (10:03→20:48)
[2019-09-14] MEDS: LOVENOX SUBQ SCH (10:04)
[2019-09-14] MEDS: COREG PO SCH ×2 (10:04→20:47)
[2019-09-14] MEDS: MIRALAX PO SCH (10:04)
--- NOTE | 2019-09-14 10:28 | Diag Imaging Result Doc PS360 ---
MRA BRAIN W/O CONTRAST - 09/13/2019 INDICATION: cva TECHNIQUE: COMPARISON: None FINDINGS: In the M1 segment of the right middle cerebral artery, there is a contour abnormality that is felt most likely to be artifact. Otherwise, the intracranial arteries are all normal. No aneurysm or significant stenosis. The vertebrobasilar system is normal. The cerebellar arteries all appear normal. IMPRESSION: Contour abnormality of the proximal right middle cerebral artery, most likely due to artifact. Otherwise unremarkable. Electronically signed by Mohan Hernandez 09/14/2019 10:26 AM
--- NOTE | 2019-09-14 11:00 | Diag Imaging Result Doc PS360 ---
MRA NECK W/CONT - 09/13/2019 INDICATION: cva TECHNIQUE: MR angiography of the neck with intravenous contrast COMPARISON: None FINDINGS: The aortic arch appears overall normal. Normal great vessel origins. There is moderate patient motion artifact distorting the images. There is some mild atherosclerotic plaque buildup in both carotid bulbs. No hemodynamically significant stenosis. No visible aneurysm. The vertebral arteries are patent and codominant. The basilar artery is normal. IMPRESSION: Mild atherosclerotic plaque buildup in the carotid bulbs bilaterally. No significant stenosis. Electronically signed by Mohan Hernandez 09/14/2019 10:57 AM
--- NOTE | 2019-09-14 11:56 | ECHO REPORT ---
ORDER DATE: 09/13/2019 INTERPRETING PHYSICIAN: Dr. John Gross. ECHOCARDIOGRAPHIC MEASUREMENTS: 1. Interventricular septum 1.2. 2. Left ventricular posterior wall 1.4. 3. Diastolic diameter 4.4 4. Left atrium 4.6. 5. Aorta 4. SUMMARY OF THE 2-DIMENSIONAL IMAGIN. Limited echocardiogram to assess left ventricular systolic function. Normal left ventricular cavity size. Mild left ventricular hypertrophy. Estimated ejection fraction of 55%. 2. Aortic valve leaflets are trileaflet. 3. Mitral valve was normal. 4. Tricuspid valve was normal. 5. Pulmonic valve not well visualized. 6. There is no pericardial effusion. cc: MD Juan Mike MD Bharat K. Vakharia, MD
--- NOTE | 2019-09-14 18:16 | CONSULTATION ---
DATE OF CONSULTATION: 09/14/2019 REASON FOR CONSULT: Stroke. HISTORY OF PRESENT ILLNESS: This is a 69-year-old right-handed male with a history of schizophrenia and bipolar disorder, diabetes, hypertension who was admitted after a fall. History is from the patient and his sister. The patient says he does not remember getting out of bed the morning of the event. He does not remember much about that day in fact. He does recall being in the yard on the side of his house where he had fallen, leaning up against a blush. It was raining on him and he was unable to get up. He called out for help for an extended period of time. He felt some discomfort in the right arm and possibly some weakness. Eventually help arrived and they were unable to get him to stand up on his own. It seems as though perhaps he stumbled off of the steep steps from his house to his side yard and may have lost consciousness. The patient himself does not recall how he even got there. There were no reports of witnessed seizure activity. There was not incontinence. He does not recall having chest pain or shortness of breath. No headache. No visual changes at the time. He does not recall feeling dizzy. He does report in the last few months having difficulty with repeated falls, typically backwards, some of those with loss of consciousness and others without. He is not certain what causes the falls, he believes he just stumbles. He has not reported this to his family. The sister noticed for the last few days he was having difficulty maneuvering his glucose meter to check his blood sugar, which is unusual for him. He seemed to be fumbling with it. She reports he comes to her house every morning to cook pickled meat his morning medications which she prepares. She also prepares his evening medications and hands them off to him as well to take in the evening. This has worked well for many years, although she feels in the last several months that he has not been doing as well generally lately. He has been less active, not out and about as much due to his psychiatric conditions. His memory and level of alertness have always fluctuated for many years. PAST MEDICAL AND SURGICAL HISTORY: Diabetes, hypertension, schizophrenia, bipolar disorder, COPD, surgery for a fractured left clavicle. FAMILY HISTORY: Reviewed and noncontributory. SOCIAL HISTORY: No cigarettes or drug use. No current alcohol use. He was an alcoholic 40 years ago. He said he quit 40 years ago and later began talking about how he relapsed 20 years ago. ALLERGIES: Listed for penicillin and sulfa. MEDICATIONS AT HOME: Benztropine, valproic acid, olanzapine, propranolol, ropinirole, aspirin 81 mg daily, atorvastatin 80 mg a day, Janumet. REVIEW OF SYSTEMS: Balance of 12 conducted and otherwise negative except that detailed in the HPI. PHYSICAL EXAMINATION: Vital Signs: He is afebrile. Blood pressure 123/74, pulse 80s, respirations 16, oxygen saturation 95% on 2 liters nasal cannula. General: Mr. Menjivar is supine in bed. Neurologic: Awake, alert. He is oriented to self, sister, location, and year. He did not know the month, date, or day of the week. He knew the President. He followed simple commands consistently. He followed a complex command. Left and right digit distinction preserved. No language disturbance. On brief bedside testing, no significant dysarthria. Cranial nerves 2-12 intact as tested. No nystagmus. Power is preserved in the limbs with the following exception: The right biceps muscle is about 2/5 to 3/5. Office Manager strength on the right is maybe slightly weak compared to the left. He reports symmetric sensation over the limbs, but at times he reports inconsistent pinprick loss over the right arm. There appears to be a length dependent loss to pinprick in the lower extremities that is symmetric up to about the mid calf. Vibratory sense was preserved. Reflexes are diminished throughout, symmetric. No clonus. Plantar response with excessive withdrawal appeared to be downgoing. He performed rapid alternating movements, slower with the right hand compared to the left hand. I did not test his gait. DIAGNOSTICS: MRI, noncontrast of the brain, no evidence of acute stroke. No acute findings. Significant patient motion artifact, particularly with FLAIR sequence. Head CT, no acute findings. Plain films of the shoulder did not show injury. MRA of the neck, mild atherosclerotic plaque buildup in the carotid bulbs bilaterally. No significant stenosis. MRA of the brain, no definite stenosis. No aneurysm. White count 17 on admission, today 11. BUN and creatinine normal. Blood sugar 110 to 170. Toxicology negative. ASSESSMENT AND PLAN: Fall with possible loss of consciousness, right arm weakness, and report of memory gap. Etiology is not certain at this time. I think this is less likely to be the result of an ischemic event given persistence of symptoms despite negative MRI that was performed several hours after the onset. I will order a cervical spine MRI. He may also need neurophysiology testing in the future if his right arm weakness does not improve. I will also order a routine EEG to look for evidence of increased propensity for seizure. Thank you for the consultation. cc: MD Pasha Vazquez MD MTDD
[2019-09-14] MEDS: REQUIP PO SCH (20:41)
[2019-09-14] MEDS: DEPAKOTE ER PO SCH (20:43)
[2019-09-14] MEDS: ZYPREXA PO SCH (20:47)
[2019-09-15] MEDS: NS 1,000 ML IV SCH (04:05)
[2019-09-15] MEDS: PRILOSEC PO SCH (06:12)
[2019-09-15] MEDS ORDERED: LINZESS PO ONE (06:47)
--- NOTE | 2019-09-15 07:58 | PROGRESS NOTE ---
DATE: 09/15/2019 SUBJECTIVE: Mr. Menjivar is doing fair. The patient still has weakness of right upper limb. Appreciate Neurology's help. He denied any fever or chills. Vital signs noted. No nausea or vomiting. No typical chest pain. The patient claimed to be constipated. No unusual agitation or hallucinations. OBJECTIVE: Vital signs: Noted. Neck: Supple. No JVD. Lungs: Bilateral good air entry present. Cardiovascular: S1 and S2 heard. Abdomen: Soft, globular. Bowel sounds present. Central nervous system: Alert, awake able to move all 4 limbs except the patient does have weakness in the right upper limb. ASSESSMENT AND PLAN: The patient's problem includes frequent falls, weakness in the right upper limb and insulin-dependent diabetes mellitus, last hemoglobin A1c was satisfactory, hypertension, hyperlipidemia, chronic obstructive pulmonary disease, schizophrenia. Patient lives by himself. I think he will be benefited from short-term rehab. Continue rest of the treatment. Close observation. cc: Pasha Goodrich MD
[2019-09-15] MEDS: DUONEB (A & A) INH SCH ×5 (08:05→23:54)
[2019-09-15] MEDS: ASPIRIN EC PO SCH (09:54)
[2019-09-15] MEDS: MIRALAX PO SCH (09:54)
[2019-09-15] MEDS: COREG PO SCH ×2 (09:54→22:22)
[2019-09-15] MEDS: LOVENOX SUBQ SCH (09:54)
[2019-09-15] MEDS: INDERAL PO SCH ×2 (09:54→22:22)
[2019-09-15] MEDS: COLACE PO SCH ×2 (09:54→22:22)
[2019-09-15] MEDS: KLOR-CON PO SCH ×2 (09:55→22:22)
[2019-09-15] MEDS: COGENTIN PO SCH ×2 (09:55→22:22)
[2019-09-15] MEDS: LIPITOR PO SCH (09:55)
[2019-09-15] MEDS ORDERED: MILK OF MAGNESIA PO ONE (14:47)
--- NOTE | 2019-09-15 15:21 | EEG REPORT ---
DATE: 09/14/2019 REFERRING: Dolly Leslie MD GERIATRICS PHYSICIAN: Amelia Lord. BACKGROUND INFORMATION/TECHNIQUE: This is a digitally recorded routine EEG with video. HISTORY: This is a 69-year-old male patient with question of seizure. EEG is ordered to detect evidence of seizures. MEDICATIONS: Include Depakote ER and Zyprexa. EEG FINDINGS: A posterior dominant alpha rhythm is not seen. The background at maximal alertness consists of theta slowing with intermixed faster frequencies. No definite persistent focal slowing. No epileptiform discharges. No seizures. Hyperventilation is not performed. Photic stimulation does not alter the record. The patient becomes drowsy but stage N2 sleep is not seen. The EKG demonstrates irregular RR intervals. IMPRESSION AND CLINICAL CORRELATION: Abnormal routine EEG due to mild diffuse slowing suggestive of a mild nonspecific encephalopathy versus drowsiness. No epileptiform discharges or seizures seen on the current study. This does not rule out an underlying seizure disorder. Irregular intervals on the EKG lead is of uncertain clinical significance. cc: MD Pasha Vazquez MD
--- NOTE | 2019-09-15 16:53 | Diag Imaging Result Doc PS360 ---
EXAM: MRI C-SPINE W/O CONTRAST 09/14/2019 HISTORY: weakness TECHNIQUE: Sagittal T1, T2, STIR, axial T1 and T2. COMMENT: There is artifact arising from dental work obscuring the prevertebral soft tissues. There is no evidence of bone marrow edema. No intrathecal masses or signal abnormalities are present. There is Modic type II change in the adjoining endplates at C6-7. There are no previous studies. At the C2-3 level there is no evidence of spinal or foraminal stenosis. At C3-4 there is minimal disc bulge and apparent narrowing of the left foramen. At the C4-5 level there is left-sided foraminal stenosis. At C5-6, there is apparent bilateral foraminal stenosis. At C6-7, there is disc space narrowing and some questionable left-sided foraminal stenosis. At C7-T1 there is no evidence of spinal or foraminal stenosis. IMPRESSION: Degenerative disc changes particularly at the C6-7 level. Multilevel foraminal stenosis as described above. No evidence of myelopathy or spinal stenosis. Electronically signed by Durga Stephens 09/15/2019 4:50 PM
--- NOTE | 2019-09-15 18:27 | PROGRESS NOTE ---
DATE: 09/15/2019 SUBJECTIVE: No major overnight events. He states his arm feels about the same. OBJECTIVE: Vital signs: Reviewed in the chart. General: Mr. Chandler is sitting up in bed, eating dinner. He is cheerful, awake, alert, and reasonably oriented. He does not know the date or day of week. Neurologic: He follows simple commands. Power is preserved in the limbs with the following exception. Today I felt his right deltoid was 4/5. The biceps still 2/5 to 2 to 3/5. The triceps was 4+/5. There may have been some slight inspector aligning weakness on the right as it was yesterday. DIAGNOSTIC STUDIES: MRI of the cervical spine showed a degenerative disk changes particularly C6- 7 and multilevel foraminal stenosis. EEG was personally reviewed and showed mild diffuse slowing which is suggestive of mild nonspecific encephalopathy versus drowsiness. ASSESSMENT AND PLAN: Fall with possible loss of consciousness and subsequent right arm weakness, as well as a report of a memory gap that day. I suspect his right arm weakness may be a peripheral lesion. He may have injured it with the fall. Initial plan was to have him follow up in the clinic in a few weeks for neurophysiology testing if the weakness does not improve. It is possible he had more weakness in the right arm today when compared to yesterday, however. We may consider and be able to test tomorrow in the hospital. EEG did not show evidence of increased propensity to seizure. I am not sure why he has been falling more recently. It could be related to peripheral neuropathy for which he has clinical evidence. It could be related to cognitive impairment syndrome, not certain about that. He would benefit from PT as well as OT therapy. cc: MD Pasha Vazquez MD
[2019-09-15] MEDS: ZYPREXA PO SCH (21:41)
[2019-09-15] MEDS: REQUIP PO SCH (22:22)
[2019-09-15] MEDS: DEPAKOTE ER PO SCH (22:22)
[2019-09-16] MEDS ORDERED: LINZESS PO ONE (06:29)
[2019-09-16] MEDS: PRILOSEC PO SCH (06:29)
--- NOTE | 2019-09-16 07:56 | PROGRESS NOTE ---
DATE: 09/16/2019 SUBJECTIVELY: Mr. Menjivar is doing fair. Last night patient does have some confusion but it got better. The patient does have weakness right upper limb. No major headache, some neck pain. No typical chest pain or palpitations. Denied any nausea or vomiting. The patient did not have bowel movement yet. No runny nose, stuffy nose. Does have chronic cough. The patient is on bronchodilator treatment. OBJECTIVE: Vital signs: Noted. Neck: Is supple. No JVD. Lungs: Bibasilar crepitations, occasional wheezing. CVS: S1 and S2 heard. Abdomen: Soft, globular. Bowel sounds present. Extremities: No cyanosis, clubbing. No acute DVT. DIRECTOR OF FOOD AND BEVERAGE SERVICES: Alert, awake able to move all 4 limbs except the right upper limb. The patient does have weakness. CONSIDERATION: Patient admitted with fall, has right upper limb weakness. The patient will need inpatient rehab. The patient lives by himself. He is high risk for another fall. His other problems include COPD, morbid obesity, metabolic syndrome. Patient had MRI done which revealed degenerative disk disease particularly at C6-C7, multilevel foraminal stenosis. No evidence of myelopathy or spinal stenosis. The patient had history of schizophrenia on Depakote and Zyprexa. His other problems include restless legs syndrome and constipation. I am going to give him Linzess 290 mg p.o. today. Continue the rest of the treatment. Close observation. The patient's folic acid level is low, will supplement. Overall plan discussed with the patient. I also talked to his sister who was present yesterday in the evening and she understood and agreed. Once the patient feels better get approval from the insurance company, will discharge patient to residential. cc: Pasha Goodrich MD
[2019-09-16] MEDS: DUONEB (A & A) INH SCH ×5 (08:08→23:01)
[2019-09-16] MEDS: COLACE PO SCH ×2 (08:18→21:15)
[2019-09-16] MEDS: INDERAL PO SCH ×2 (08:18→21:15)
[2019-09-16] MEDS: KLOR-CON PO SCH ×2 (08:18→21:15)
[2019-09-16] MEDS: COREG PO SCH ×2 (08:18→21:15)
[2019-09-16] MEDS: ASPIRIN EC PO SCH (08:19)
[2019-09-16] MEDS: GLUCOPHAGE XR PO SCH (08:19)
[2019-09-16] MEDS: LIPITOR PO SCH (08:19)
[2019-09-16] MEDS: FOLIC ACID PO SCH (08:20)
[2019-09-16] MEDS: LOVENOX SUBQ SCH (08:20)
[2019-09-16] MEDS: COGENTIN PO SCH ×2 (08:20→21:15)
[2019-09-16] MEDS: MIRALAX PO SCH (11:15)
[2019-09-16] MEDS: NS 1,000 ML IV SCH ×3 (11:15→21:51)
--- NOTE | 2019-09-16 14:37 | PROGRESS NOTE ---
DATE: 09/16/2019 SUBJECTIVE: Dr. Leslie saw Mr. Menjivar for initial Neurology evaluation. He had a recent fall followed by discovery of right arm weakness. He and agree he is moving his right arm distally today better than a few days ago. He continues to be very weak proximally in the right arm and in the right shoulder girdle. OBJECTIVE: On my exam, strength grades 1/5 at the right deltoid, supraspinatus, infraspinatus and biceps brachii. He has good power in the right triceps and in the distal muscles of the right arm. He reports good sensation over the right hand. Proprioception is good at the right index finger MCP joint bilaterally. DIAGNOSTIC DATA: Review of his workup shows cervical MRI without contrast a few days ago demonstrated degenerative changes diffusely, but no definite HNP, no abnormal cord signal or evidence of cord compression. Brain MRI, brain MRA, cervical MRA were unremarkable. Right shoulder x-ray showed no evidence of fracture or dislocation. IMPRESSION/PLAN: My impression is that he had trauma with resulting proximal right arm weakness that could be either a brachial plexus neuropathy or cervical radiculopathy. We will plan to do EMG study as an outpatient in a few weeks. Full complement of needle EMG findings may not be present for up to 3 weeks after acute nerve injury and that is the reason for the delay. I do not have any objection to him participating with physical therapy and aggressive rehab. Further plans will depend on the EMG findings and on his clinical course. Thanks for asking us to see Mr. Menjivar. cc: MD Pasha Kamara III, MD MTDD
[2019-09-16] MEDS: REQUIP PO SCH (21:15)
[2019-09-16] MEDS: DEPAKOTE ER PO SCH (21:15)
[2019-09-16] MEDS: ZYPREXA PO SCH (21:51)
[2019-09-17] MEDS: PRILOSEC PO SCH ×2 (05:51→06:21)
[2019-09-17] MEDS ORDERED: DULCOLAX PR ONE (06:27)
[2019-09-17] MEDS ORDERED: LINZESS PO ONE (06:34)
[2019-09-17 07:46] LABS: BASO# 0.04 X1000 (0.0-0.2); BASO% 0.5 % (0.0-0.8); EOS% 4.1 % (0.0-10.0); HEMATOCRIT 35.2 % (42.0-52.0); HEMOGLOBIN 10.8 g/dL (14.0-18.0); IMM GRAN# 0.27 X1000 (0.0-0.04); IMM GRAN% 3.7 % (0.0-0.5); LYMPH# 1.67 X1000 (1.2-3.4); LYMPH% 22.7 % (20.5-51.1); MCH 28.1 PG (27-31); MCHC 30.7 g/dL (33-37); MCV 91.7 FL (81-99); MONO# 1.08 X1000 (0.11-0.59); MONO% 14.7 % (1.7-9.3); MPV 8.8 FL (7.4-10.4); NEUT# 4.01 X1000 (1.4-6.5); NEUT% 54.3 % (42.2-75.2); PLT 297 X1000 (130-400); RBC 3.84 XMIL (4.7-6.1); RDW 13.9 % (11.5-14.5); WBC 7.37 X1000 (4.8-10.8)
[2019-09-17 08:01] LABS: AGAP 8; ALB/GLOB RATIO 0.8; ALBUMIN 2.5 g/dL (3.5-5.0); ALKALINE PHOSPHATASE 139 U/L (32-122); BUN 12 mg/dL (8-22); CALCIUM 8.3 mg/dL (8.8-10.2); CHLORIDE 104 mmol/L (98-107); COSMO 274; CREATININE 0.7 mg/dL (0.7-1.2); ESTIMATED GFR > 60; GLUCOSE 101 mg/dL (70-104); GOT 59 U/L (10-34); GPT 43 U/L (10-44); POTASSIUM 4.4 mmol/L (3.5-5.1); SODIUM 137 mmol/L (136-145); TCO2 25 mmol/L (25-35); TOTAL BILIRUBIN 0.25 mg/dL (0.20-1.00); TOTAL PROTEIN 5.7 g/dL (6.3-8.3)
--- NOTE | 2019-09-17 08:32 | PROGRESS NOTE ---
DATE: 09/17/2019 SUBJECTIVE: Mr. Menjivar is doing fair. The patient still has weakness in the right upper limb. It is getting some better. No nausea or vomiting. The patient did not have bowel movement yet. We did try MiraLAX and Linzess. I am going to try Dulcolax suppository today. The patient has Dover catheter. The patient does have a history suggestive of obstructive uropathy. I am going to start him on Flomax. No typical chest pain or palpitation. Does have chronic cough with scanty sputum production. Pain in the right shoulder seems to be getting some better. OBJECTIVE: His vital signs noted. Neck is supple. Movement of cervical spine minimally painful. Lungs: Bibasilar crepitations. Heart: S1 and S2 heard. Abdomen: Soft, globular. Bowel sounds present. Extremities: No cyanosis, clubbing. No acute DVT. NP: Alert, awake. Able to move all 4 limbs. The patient does have weakness in the right upper limb. CONSIDERATION: Patient admitted with fall ,weakness right upper limb. Possibility of nerve injury affecting the right upper limb is higher in the list. The patient does have significant constipation. Other considerations: COPD, BPH, schizophrenia doing well with current treatment. PLAN: Continue current treatment. We will try Dulcolax suppository. Fall precaution. His other problems includes metabolic syndrome. Overall plan discussed with the patient and he is in agreement. We are waiting for rehab placement. cc: Pasha Goodrich MD
--- NOTE | 2019-09-17 09:24 | Diag Imaging Result Doc PS360 ---
ABDOMEN FLAT/UPRIGHT - 09/17/2019 INDICATION: pain COMPARISON: 09/13/2019 FINDINGS: Stable temperature sensor in the urinary bladder. There is severe constipation throughout the colon diffusely. No evidence of bowel obstruction. IMPRESSION: Rather severe constipation. Electronically signed by Mohan Hernandez 09/17/2019 9:21 AM
[2019-09-17] MEDS: LIPITOR PO SCH (09:32)
[2019-09-17] MEDS: MIRALAX PO SCH (09:32)
[2019-09-17] MEDS: COGENTIN PO SCH ×2 (09:33→20:44)
[2019-09-17] MEDS: COREG PO SCH ×2 (09:33→20:44)
[2019-09-17] MEDS: COLACE PO SCH ×2 (09:33→20:45)
[2019-09-17] MEDS: KLOR-CON PO SCH ×2 (09:33→20:44)
[2019-09-17] MEDS: ASPIRIN EC PO SCH (09:33)
[2019-09-17] MEDS: GLUCOPHAGE XR PO SCH (09:34)
[2019-09-17] MEDS: FOLIC ACID PO SCH (09:34)
[2019-09-17] MEDS: INDERAL PO SCH ×2 (09:34→20:45)
[2019-09-17] MEDS: LOVENOX SUBQ SCH (09:34)
[2019-09-17] MEDS: DUONEB (A & A) INH SCH ×5 (11:42→23:48)
--- NOTE | 2019-09-17 11:42 | PROGRESS NOTE ---
DATE: 09/17/2019 LOCATION: Room 321. SUBJECTIVE: Mr. Menjivar reports no new problems. He has not noticed definite improvement in right arm power in the last 24 hours. He does not have any new complaints. OBJECTIVE: On exam, he continues to have proximal weakness in the right arm, specifically at the deltoid, biceps, and infraspinatus. Power is good in the left arm. Power is good distally in the right arm. ASSESSMENT AND PLAN: We reviewed discussion of cervical radiculopathy versus brachial plexus neuropathy. I do not have any new suggestions today. We will plan elective outpatient EMG in a few weeks. I do not have any objection to his proceeding with rehab. Thank you for asking Neurology to see Mr. Menjivar. cc: MD Pasha Kamara III, MD MTDD
[2019-09-17] MEDS: ZYPREXA PO SCH (20:43)
[2019-09-17] MEDS: DEPAKOTE ER PO SCH (20:43)
[2019-09-17] MEDS: REQUIP PO SCH (20:44)
[2019-09-17] MEDS ORDERED: FLOMAX PO SCH (21:00)
[2019-09-18] MEDS: PRILOSEC PO SCH (06:24)
[2019-09-18] MEDS: DUONEB (A & A) INH SCH ×2 (09:00→12:22)
[2019-09-18] MEDS: MIRALAX PO SCH (10:13)
[2019-09-18] MEDS: LOVENOX SUBQ SCH (10:14)
[2019-09-18] MEDS: ASPIRIN EC PO SCH (10:14)
[2019-09-18] MEDS: COGENTIN PO SCH (10:14)
[2019-09-18] MEDS: INDERAL PO SCH (10:14)
[2019-09-18] MEDS: COREG PO SCH (10:14)
[2019-09-18] MEDS: COLACE PO SCH (10:14)
[2019-09-18] MEDS: KLOR-CON PO SCH (10:15)
[2019-09-18] MEDS: LIPITOR PO SCH (10:16)
[2019-09-18] MEDS: FOLIC ACID PO SCH (10:16)
[2019-09-18] MEDS: GLUCOPHAGE XR PO SCH (10:16)
[2019-09-18 11:50] VITALS: BP 133/72
--- NOTE | 2019-09-18 13:15 | DISCHARGE SUMMARY ---
ADMISSION DATE: 09/12/2019 DISCHARGE DATE: FINAL DISCHARGE DIAGNOSES: 1. Right upper limb weakness. 2. Degenerative disk disease cervical spine. 3. Syncope. 4. Chronic obstructive pulmonary disease. 5. Schizophrenia. 6. Hypertension. 7. Non-insulin dependent diabetes mellitus. 8. Gastritis and reflux disease. 9. Restless legs syndrome. 10. Morbid obesity. HISTORY OF PRESENT ILLNESS: Mr. Menjivar is a 69-year-old, white gentleman admitted status post fall right shoulder and neck injury. The patient had a syncopal episode. Evaluated in the ER. The patient had weakness in the right upper limb. He was not able to move initially. The patient was admitted to telemetry bed. The patient had workup done. His weakness is improving slowly. We did physical therapy. Neurologist evaluated the patient so has the groover operator. The patient have signet had significant constipation. We treated him with medication. No nausea or vomiting. The patient claims at home sometimes he does not use the bathroom for 4 to 5 days. The patient was eating good. X-ray did show significant constipation but no evidence of obstruction. Overall patient is doing better. The patient approved for rehab placement. I am going to follow patient at the rehab. I will follow his constipation along with other medical conditions. PHYSICAL EXAMINATION: Vital Signs: His vital signs noted. Neck: Supple. No JVD. Lungs: Bilateral good air entry present. Cardiovascular: S1 and S2 heard. Abdomen: Soft, nontender. Bowel sounds present. Extremities: No cyanosis, clubbing. No acute DVT. LETTERER: Alert, awake, able to move all 4 limbs. Movement of right upper limb improving slowly. The patient will be benefited from physical therapy and inpatient rehab. LABORATORY DATA: Hemoglobin 10.8, hematocrit 35.2, WBC count 7.37, platelet count 297,000. Electrolytes were benign. Last hemoglobin A1c was satisfactory. Vitamin B12 699, folate 5.4. I added folate supplement. PT/INR 1.07, PTT 30.9. The patient has Dover catheter due to obstructive uropathy. I started patient on Flomax and will remove catheter in 2 to 3 days. IMAGING: The patient had a CT scan of the head and neck done which revealed minimal white matter microangiopathy, multilevel degenerative arthropathy. No evidence of fracture or other definite acute C-spine injury. X-ray of the shoulder, no acute bony injury. X-ray of the right forearm was benign. Chest x-ray was also benign. X-ray of the hip and pelvis was negative. The patient had MRA brain without contrast, and there was no major pathology. MRI of the brain was negative. MRA of the neck, mild atherosclerotic plaque buildup. The patient had MRI of the cervical spine which revealed degenerative disk changes particularly at C6-7 level multiple foraminal stenosis. No evidence of myelopathy or spinal stenosis. DISPOSITION: Overall patient is doing better. We will discharge patient to rehab. DISCHARGE INSTRUCTIONS: Continue home medicine. Fall precaution. Oxygen. Overall plan discussed with the patient and he is in agreement. cc: Pasha Goodrich MD
== END 2019-09-18 16:32 | DRG 552 ==
LOC: SUPCPDRO → ED 17:07 → 3N 23:05 → SUATTDRO 23:05
PROVIDERS: ADMIT Internal Medicine; ATTEND Internal Medicine

== ENCOUNTER 2019-09-30 14:39 | Inpatient (IN) ==
--- NOTE | 2019-09-30 15:09 | PROVIDER DOCUMENTATION ---
HPI-General Adult - General Stated Complaint: agitation/confusion Time Seen by Provider: 09/30/19 15:05 Source: patient Allergies/Adverse Reactions: Patient Allergies Allergy/AdvReac Type Severity Reaction Status Date / Time Penicillins Allergy ITCHING Verified 01/05/19 13:15 Sulfa (Sulfonamide Allergy ITCHING Verified 01/05/19 13:15 Antibiotics) Home Medications: Home Medication List Medication Instructions Recorded Confirmed Last Taken Type Benztropine Mesylate 0.5 mg PO BID 01/05/19 09/12/19 01/05/19 History Divalproex Sodium [Divalproex 1,500 mg PO HS 01/05/19 09/12/19 01/04/19 History Sodium ER] Olanzapine 20 mg PO HS 01/05/19 09/12/19 01/04/19 History Propranolol HCl 20 mg PO BID 01/05/19 09/12/19 01/05/19 History Ropinirole HCl 0.25 mg PO HS 01/05/19 09/12/19 01/04/19 History Albuterol 2.5MG/Ipratrop 0.5MG 3 ml INH [id number].WA neb 01/07/19 09/12/19 Unknown Rx [Duoneb (A & A)] Albuterol Sulfate [Proair Hfa] 8.5 gm INHALATION 4XDAY #0 01/07/19 09/12/19 01/04/19 Rx Aspirin EC 81 mg PO DAILY tab 01/07/19 09/12/19 Unknown Rx ATORVAstatin [Lipitor] 80 mg PO DAILY 09/12/19 09/12/19 Unknown History Carvedilol [Coreg] 3.125 mg PO BID tab 09/18/19 Unknown Rx Divalproex E.r. [Depakote ER] 1,500 mg PO QHS tab 09/18/19 Unknown Rx Docusate Sodium [Colace] 100 mg PO BID cap 09/18/19 Unknown Rx Folic Acid 1 mg PO DAILY tab 09/18/19 Unknown Rx Metformin E.r. [Glucophage Xr] 1,000 mg PO WBREAKFAST tab 09/18/19 Unknown Rx Nitroglycerin 1 inch TOP Q6H PRN oint...g. 09/18/19 Unknown Rx Olanzapine [Zyprexa] 20 mg PO QHS tab 09/18/19 Unknown Rx Omeprazole [Prilosec] 40 mg PO DAILY@0700 cap 09/18/19 Unknown Rx Polyethylene Glycol 3350 [Miralax] 17 gm PO DAILY powder, packet 09/18/19 Unknown Rx Tamsulosin [Flomax] 0.4 mg PO QHS cap 09/18/19 Unknown Rx - History of Present Illness -Gen Adult Nature of Presenting Problems: Pt. is 69 yom that presents by EMS from [facility] for c/o increased agitation and confusion. Pt. denies any SI, HI, or hallucinations and reports he is in no pain. EMS reports the patient is on O2 all the time. Location of Pain/Injury: reports: none. denies: head, face, mouth, neck, chest, upper extremity, hand(s), abdomen, back, pelvis, genitalia, lower extremity, feet, upper body, lower body, generalized, other Pain Radiation: reports: no radiation. denies: arm(s), back, buttocks, chest, epigastric, feet, groin, jaw, flank (L), legs (lower), LLQ, LUQ, neck, azul umbilical, flank (R), RLQ, RUQ, shoulder(s), scapula, scrotal, sternal notch, suprapubic, legs (upper), urethral, vaginal, other Quality of Pain: reports: none. denies: aching, indigestion, throbbing Severity: reports: mild. denies: moderate, severe Onset/Duration: reports: unsure Timing: reports: still present. denies: improving, intermittent, getting worse Context/Activities at Onset: reports: none. denies: light activity, moderate activity, vigorous activity, recent emotional stress, recent physical stress, recent trauma history, possible bad food, cold exposure, eating, out of country travel, rest, sleep, sexual activity, other Modifying Factors: improves with: nothing Associated Symptoms: reports: other (Increased confusion and agitation). denies: denies symptoms, anxiety, arm pain, back/neck pain, chest pain, constipation, cough, diaphoresis, diarrhea, dizziness, EENT symptoms, fatigue, fever/chills, genitourinary problems, headaches, heartburn, joint pain, loss of appetite, malaise, muscle aches, sinus congestion/drainage, nausea, rash, seizure, shortness of breath, sensory/motor loss, pain with inspiration, swelling/mass in abdomen, syncope, vomiting, weakness, trouble walking Similar Symptoms Previously?: Yes Recently seen or treated by another doctor?: No Review of Systems - Adult - REVIEW OF SYSTEMS - ADULT Constitutional: reports: no symptoms reported Eyes: reports: no symptoms reported Ears, Nose, Mouth & Throat: reports: no symptoms reported Cardiovascular: reports: no symptoms reported Respiratory: reports: no symptoms reported Gastrointestinal: reports: no symptoms reported Genitourinary: reports: no symptoms reported Musculoskeletal: reports: no symptoms reported Integumentary: reports: no symptoms reported Neurological: reports: no symptoms reported Psychiatric: reports: see HPI, other (Confusion and agitation). denies: depression, emotional problems, insomnia Past History - Adult - PAST MEDICAL HISTORY-ADULT Review of Records: reports: Old Records Reviewed, Nursing Assessment Review, Medications Reviewed, Social history reviewed & non-contributory. Respiratory: reports: COPD Endocrine/Immune: reports: Diabetes - IMMUNIZATION STATUS Childhood Immunizations: See Nurse Assessment Flu Vaccine: See Nurse Assessment - FAMILY HISTORY Family History: reviewed, not pertinent - SOCIAL HISTORY Smoking: denies Physical Exam-General - PHYSICAL EXAM-ADULT Initial Vital Signs Reviewed: Yes - CONSTITUTIONAL General Appearance: alert, no apparent distress - EYES Eyes: PERRL/EOMI, pink conjunctivae - HEAD, EARS, NOSE, MOUTH & THROAT HENMT: normocephalic/atraumatic, moist mucous membranes - NECK Neck: non-tender, full range of motion - RESPIRATORY Respiratory: lungs clear, normal breath sounds - CARDIOVASCULAR Cardiovascular: normal peripheral pulses, regular rate, rhythm - GASTROINTESTINAL (ABDOMEN) Abdominal Exam: normal bowel sounds, non tender, soft - LYMPHATIC Lymphatic: no adenopathy - MUSCULOSKELETAL Back Exam: normal inspection, no CVA tenderness Extremity: normal range of motion, non-tender, normal inspection Peripheral Pulses: radial (R): 2+, radial (L): 2+ - SKIN Integumentary: normal color, normal turgor, warm/dry - NEUROLOGIC Neurologic: grossly normal, no motor/sensory deficits - PSYCHIATRIC Psych/Mental Status: normal mood/affect, normal thought content, normal thought process, oriented x 3. negative: anxious, paranoid, tearful Progress - PLAN OF CARE/RESULTS Progress/Plan/Lab Results: Orders Category Date Time Status CHEST-1 VIEW [RAD] Stat Exams 09/30/19 14:[address] HEAD W/O CONTRAST [CT] Stat Exams 09/30/19 14:55 Ordered ABG [RESP] Routine Lab 09/30/19 15:03 Ordered ALCOHOL BLOOD Stat Lab 09/30/19 14:55 Uncollected CBC WITH ELECTRONIC DIFF [HEME] Stat Lab 09/30/19 14:53 Uncollected COMPREHENSIVE METABOLIC PANEL [CHEM] Stat Lab 09/30/19 14:53 Uncollected FOLATE Stat Lab 09/30/19 14:54 Uncollected FREE T4 Stat Lab 09/30/19 14:53 Uncollected MAGNESIUM [CHEM] Stat Lab 09/30/19 14:54 Uncollected RPR [SERO] Stat Lab 09/30/19 14:53 Uncollected TSH Stat Lab 09/30/19 14:53 Uncollected URINALYSIS W/POSS RFLX CULT [URINALYSIS] Stat Lab 09/30/19 14:53 Uncollected URINE DRUG SCREEN Stat Lab 09/30/19 14:53 Uncollected VITAMIN B12 Stat Lab 09/30/19 14:54 Uncollected EKG [EKG] Stat Ther 09/30/19 14:53 Ordered Laboratory Tests 09/30/19 09/30/19 09/30/19 15:03 15:03 15:03 WBC 9.98 RBC 3.54 L Hgb 9.8 L Hct 32.0 L MCV 90.4 MCH 27.7 MCHC 30.6 L RDW Std Deviation 14.8 H Plt Count 411 H MPV 9.1 Immature Gran % (Auto) 1.0 H Neut % (Auto) 57.0 Lymph % (Auto) 17.1 L Starke % (Auto) 21.5 H Eos % (Auto) 2.5 Baso % (Auto) 0.9 H Immature Gran # (Auto) 0.10 H Neut # (Auto) 5.68 Lymph # (Auto) 1.71 Starke # (Auto) 2.15 H Eos # (Auto) 0.25 Baso # (Auto) 0.09 Segmented Neutrophils 66 Band Neutrophils 3 H Lymphocytes 17 L Monocytes 10 H Eosinophils 3 Atypical Lymphocytes 1.0 Specimen Type Sample Site pH pCO2 pO2 HCO3 Base Excess Oxyhemoglobin ABG O2 Sat (Calculated) ABG O2 Saturation ABG Carboxyhemoglobin ABG Methemoglobin Bertram Test A-a O2 Difference Total Hemoglobin Lactate Liter Flow Blood Gas Modality FiO2 % Sodium 131 L Potassium 4.3 Chloride 96 L Carbon Dioxide 25 Anion Gap 10 BUN 13 Creatinine 0.8 Estimated GFR/1.73 m2 > 60 BUN/Creatinine Ratio 16 Glucose 89 Calculated Osmolality 262 Calcium 8.3 L Total Bilirubin 0.40 AST 30 ALT 13 Alkaline Phosphatase 73 Total Protein 6.2 L Albumin 2.1 L Globulin 4.1 Albumin/Globulin Ratio 0.5 TSH 0.97 Free T4 1.04 Urine Source Urine Color Urine Turbidity Urine pH Ur Specific [place] Urine Protein Ur Glucose (Stick) Ur Ketones (Stick) Urine Blood Urine Nitrite Urine Bilirubin Urobilinogen Dipstick Urine Leukocytes Urine WBC (Auto) Urine RBC (Auto) U Epithel Cells (Auto) Urine Bacteria (Auto) Plasma/Serum Ethyl Alc RPR 09/30/19 09/30/19 09/30/19 15:03 15:03 15:55 WBC RBC Hgb Hct MCV MCH MCHC RDW Std Deviation Plt Count MPV Immature Gran % (Auto) Neut % (Auto) Lymph % (Auto) Starke % (Auto) Eos % (Auto) Baso % (Auto) Immature Gran # (Auto) Neut # (Auto) Lymph # (Auto) Starke # (Auto) Eos # (Auto) Baso # (Auto) Segmented Neutrophils Band Neutrophils Lymphocytes Monocytes Eosinophils Atypical Lymphocytes Specimen Type Sample Site pH pCO2 pO2 HCO3 Base Excess Oxyhemoglobin ABG O2 Sat (Calculated) ABG O2 Saturation ABG Carboxyhemoglobin ABG Methemoglobin Bertram Test A-a O2 Difference Total Hemoglobin Lactate Liter Flow Blood Gas Modality FiO2 % Sodium Potassium Chloride Carbon Dioxide Anion Gap BUN Creatinine Estimated GFR/1.73 m2 BUN/Creatinine Ratio Glucose Calculated Osmolality Calcium Total Bilirubin AST ALT Alkaline Phosphatase Total Protein Albumin Globulin Albumin/Globulin Ratio TSH Free T4 Urine Source CLEAN CATCH Urine Color YELLOW Urine Turbidity CLEAR Urine pH 6.0 Ur Specific [place] 1.017 Urine Protein TRACE A Ur Glucose (Stick) NEGATIVE Ur Ketones (Stick) TRACE A Urine Blood NEGATIVE Urine Nitrite NEGATIVE Urine Bilirubin NEGATIVE Urobilinogen Dipstick 2 A Urine Leukocytes LARGE A Urine WBC (Auto) TNTC A Urine RBC (Auto) <10 U Epithel Cells (Auto) <10 Urine Bacteria (Auto) 1+ Plasma/Serum Ethyl Alc RPR NON-REACTIVE 09/30/19 16:09 WBC RBC Hgb Hct MCV MCH MCHC RDW Std Deviation Plt Count MPV Immature Gran % (Auto) Neut % (Auto) Lymph % (Auto) Starke % (Auto) Eos % (Auto) Baso % (Auto) Immature Gran # (Auto) Neut # (Auto) Lymph # (Auto) Starke # (Auto) Eos # (Auto) Baso # (Auto) Segmented Neutrophils Band Neutrophils Lymphocytes Monocytes Eosinophils Atypical Lymphocytes Specimen Type ARTERIAL Sample Site R RADIAL pH 7.32 L pCO2 58 H* pO2 88 HCO3 27.1 H Base Excess 2.8 Oxyhemoglobin 94.8 L ABG O2 Sat (Calculated) 14.0 L ABG O2 Saturation 98.2 ABG Carboxyhemoglobin 2.30 ABG Methemoglobin 1.3 Bertram Test YES A-a O2 Difference 96.0 Total Hemoglobin 10.4 L Lactate 0.70 Liter Flow 4.0 Blood Gas Modality CANNULA FiO2 % 36.0 Sodium Potassium Chloride Carbon Dioxide Anion Gap BUN Creatinine Estimated GFR/1.73 m2 BUN/Creatinine Ratio Glucose Calculated Osmolality Calcium Total Bilirubin AST ALT Alkaline Phosphatase Total Protein Albumin Globulin Albumin/Globulin Ratio TSH Free T4 Urine Source Urine Color Urine Turbidity Urine pH Ur Specific [place] Urine Protein Ur Glucose (Stick) Ur Ketones (Stick) Urine Blood Urine Nitrite Urine Bilirubin Urobilinogen Dipstick Urine Leukocytes Urine WBC (Auto) Urine RBC (Auto) U Epithel Cells (Auto) Urine Bacteria (Auto) Plasma/Serum Ethyl Alc RPR Dr. Dewitt is at bedside for evaluation. Result Diagrams: 09/30/19 15:03 09/30/19 15:03 - EKG 1 Time of EKG reading by physician:: 14:50 EKG Read and Signed by:: Chacho Dewitt EKG Interpretation (*Must complete 3 of following elements*): Abnormal Rate: 85 Rhythm: SR with 1st degree block [place]: normal [place] Interval: normal ST Wave: normal - XRAY 1 XRAY Study: Chest ([facility] - [address], [address], [place] [address] [facility] - [address] [place] [address] Department of Imaging Patient: GRACIE SIMONS Date: 09/30/19MR#: [id number] : 1950DM Status: PRE ERAcct#: [id number] Age/Sex: 69/MRoom/Bed: Loc: ED Ordering Physician: Julian Burden Family Physician: Reason for Procedure: psych Signed CHEST-1 VIEW - 09/30/2019 INDICATION: psych COMPARISON: 09/12/2019 FINDINGS: There is new ill-defined infiltrate in the lateral right upper lobe and right midlung. Heart size and pulmonary vascularity is normal. No pneumothorax or pleural effusion. IMPRESSION: Early bronchopneumonia in the right upper lobe. Electronically signed by Mohan Hernandez 09/30/2019 3:37 PM 09/30/19 1537 Interpreting Physician: Mohan Hernandez MD Dictated Date/Time: 09/30/19 1536 cc: Julian Burden;) XRAY Interpretation: See note - CT/MRI 1 CT Study: Head ([facility] - [address] [facility] [address] [id number] [facility] - [address] [place] [address] Department of Imaging Patient: GRACIE SIMONS Date: 09/30/19#: [id number] : 1950DM Status: PRE ERAcct#: [id number] Age/Sex: 69/MRoom/Bed: Loc: ED Ordering Physician: Julian Burden Family Physician: Reason for Procedure: psychosis Signed EXAM: CT HEAD W/O CONTRAST INDICATION: psychosis TECHNIQUE: This exam was performed using automated exposure control, adjustment of mA or kV according to patient size, and/or use of iterative reconstruction technique. COMPARISON: 09/12/2019 FINDINGS: There is suggestion of minimal white matter microangiopathy, stable. There is no definite acute infarct given the limited sensitivity of CT versus MRI. There is no discrete intracranial mass, mass effect, or intracranial hemorrhage. The surrounding soft tissues and bony structures are essentially unremarkable. IMPRESSION: Stable CT head with no evidence of acute pathology. Electronical ly signed by Pop Umana 09/30/2019 3:34 PM 09/30/19 1534 Interpreting Physician: Pop Umana MD Dictated Date/Time: 09/30/19 1533 cc: Julian Burden;) CT Results: See note Departure - Departure Date of Disposition Decision: 09/30/19 Time of Disposition Decision: 16:28 DIAGNOSIS: Hypoxia, Hyponatremia Pneumonia Qualifiers: Pneumonia type: due to unspecified organism Laterality: unspecified laterality Lung location: unspecified part of lung Qualified Code(s): J18.9 - Pneumonia, unspecified organism UTI (urinary tract infection) Qualifiers: Urinary tract infection type: acute cystitis Hematuria presence: without hematuria Qualified Code(s): N30.00 - Acute cystitis without hematuria Anemia Qualifiers: Anemia type: unspecified type Qualified Code(s): D64.9 - Anemia, unspecified Disposition: ADMITTED INPATIENT 09 Certified Medical Emergency: Emergent Condition: Stable Referrals and Follow-Ups: Pasha Goodrich MD [Primary Care Provider] - - Critical Care Note This patient required my direct & personal management of CC.: Yes Total Time (mins): 35 Critical Care Statement: This patient required my direct personal management to treat or rule out processes, the absence of which, could potentiallly result in sudden, clinically significant life or limb threatening deterioration. Attestation - Physician/ JOSE Attestation Patient care was provided by Advanced Practice Provider:: Yes Advanced Practice Provider:: Julian Burden Advanced Practice Provider documentation review:: The Mid-level provider d ocumentation, treatment plan and medical decision making was reviewed by the physician who agrees with all treatment and medical decision making by the MLP. The physician spent face to face time with patient:: Yes Advanced Practice Provider documentation review:: Supervising physician onsite and consulted in the evaluation and care of this patient. The physician did have a face to face encounter with the patient.
--- NOTE | 2019-09-30 15:29 | EKG Report ---
Test Performed on : 09/30/2019 2:48:46 PM Test Reason : psych Blood Pressure : / mmHG Vent. Rate : 085 BPM Atrial Rate : 085 BPM P-R Int : 210 ms QRS Dur : 134 ms QT Int : 380 ms P-R-T Axes : 038 083 066 degrees QTc Int : 452 ms Sinus rhythm. with 1st degree AV block. with premature atrial complexes. Nonspecific intraventricular block Abnormal ECG When compared with ECG of 12-SEP-2019 19:45, (Unconfirmed) premature atrial complexes. are now present Nonspecific intraventricular block has replaced Right bundle branch block Unconfirmed Result
--- NOTE | 2019-09-30 15:37 | Diag Imaging Result Doc PS360 ---
EXAM: CT HEAD W/O CONTRAST INDICATION: psychosis TECHNIQUE: This exam was performed using automated exposure control, adjustment of mA or kV according to patient size, and/or use of iterative reconstruction technique. COMPARISON: 09/12/2019 FINDINGS: There is suggestion of minimal white matter microangiopathy, stable. There is no definite acute infarct given the limited sensitivity of CT versus MRI. There is no discrete intracranial mass, mass effect, or intracranial hemorrhage. The surrounding soft tissues and bony structures are essentially unremarkable. IMPRESSION: Stable CT head with no evidence of acute pathology. Electronically signed by Pop Umana 09/30/2019 3:34 PM
--- NOTE | 2019-09-30 15:39 | Diag Imaging Result Doc PS360 ---
CHEST-1 VIEW - 09/30/2019 INDICATION: psych COMPARISON: 09/12/2019 FINDINGS: There is new ill-defined infiltrate in the lateral right upper lobe and right midlung. Heart size and pulmonary vascularity is normal. No pneumothorax or pleural effusion. IMPRESSION: Early bronchopneumonia in the right upper lobe. Electronically signed by Mohan Hernandez 09/30/2019 3:37 PM
[2019-09-30 15:43] LABS: BASO# 0.09 X1000 (0.0-0.2); BASO% 0.9 % (0.0-0.8); EOS# 0.25 X1000 (0.0-0.7); EOS% 2.5 % (0.0-10.0); HEMOGLOBIN 9.8 g/dL (14.0-18.0); LYMPH# 1.71 X1000 (1.2-3.4); LYMPH% 17.1 % (20.5-51.1); MCH 27.7 PG (27-31); MCHC 30.6 g/dL (33-37); MCV 90.4 FL (81-99); MONO# 2.15 X1000 (0.11-0.59); MONO% 21.5 % (1.7-9.3); MPV 9.1 FL (7.4-10.4); NEUT# 5.68 X1000 (1.4-6.5); PLT 411 X1000 (130-400); RBC 3.54 XMIL (4.7-6.1); RDW 14.8 % (11.5-14.5); WBC 9.98 X1000 (4.8-10.8)
[2019-09-30] MEDS ORDERED: ROCEPHIN IM ONE (15:58)
[2019-09-30] MEDS ORDERED: XYLOCAINE-MPF 1% INJ ONE (15:58)
[2019-09-30 16:02] LABS: AGAP 10; ALB/GLOB RATIO 0.5; ALBUMIN 2.1 g/dL (3.5-5.0); ALKALINE PHOSPHATASE 73 U/L (32-122); BUN 13 mg/dL (8-22); CALCIUM 8.3 mg/dL (8.8-10.2); CHLORIDE 96 mmol/L (98-107); COSMO 262; CREATININE 0.8 mg/dL (0.7-1.2); ESTIMATED GFR > 60; GLUCOSE 89 mg/dL (70-104); GOT 30 U/L (10-34); GPT 13 U/L (10-44); POTASSIUM 4.3 mmol/L (3.5-5.1); SODIUM 131 mmol/L (136-145); TCO2 25 mmol/L (25-35); TOTAL PROTEIN 6.2 g/dL (6.3-8.3)
[2019-09-30 16:04] LABS: BANDS 3 % (0-1); EOS 3 % (1-10); LYMPHS 17 % (21-51); MONO 10 % (1-9); SEGS 66 % (42-75)
[2019-09-30 16:05] LABS: URINE SOURCE CLEAN CATCH
[2019-09-30 16:18] LABS: BILIRUBIN URINE NEGATIVE (NEGATIVE); BLOOD URINE NEGATIVE (NEGATIVE); COLOR YELLOW; GLUCOSE URINE NEGATIVE (NEGATIVE); KETONE URINE TRACE mg/dL (NEGATIVE); LEUKOCYTES URINE LARGE (NEGATIVE); NITRITE URINE NEGATIVE (NEGATIVE); PROTEIN URINE TRACE mg/dL (NEGATIVE); SP GRAVITY URINE 1.017; TURBIDITY URINE CLEAR (CLEAR); UROBILINOGEN URINE 2 mg/dL (NORMAL)
[2019-09-30 16:18] LABS: ALLEN TEST YES; BE 2.8 mmoll (-3.0-3.0); BLOOD TYPE ARTERIAL; HCO3-(ACT) 27.1 mmoll (20.0-26.0); METHB 1.3 % (0.0-1.5); O2HB 94.8 % (95.0-99.0); PO2(98.6) 88 mmHg (60-100); SAMPLE BLOOD; SAO2 98.2 % (95.0-100.0); THB 10.4 g/dL (11.5-17.4); pH(98.6) 7.32 (7.35-7.45)
[2019-09-30 16:20] LABS: MODALITY CANNULA; PCO2(98.6) 58 mmHg (35-45)
[2019-09-30 16:24] LABS: FREE T4 1.04 ng/dL (0.93-1.70); TSH 0.97 uIUmL (0.27-4.20)
[2019-09-30 16:27] LABS: UR EPITHELIAL CELLS <10 /HPF (<10); URINE BACTERIA 1+ /HPF; URINE RBC <10 /HPF (<10); URINE WBC TNTC /HPF (<10)
[2019-09-30 16:29] LABS: UR AMPHETAMINES QUAL NONE DETECTED (NONE DETECT); UR BARBITUATES QUAL NONE DETECTED (NONE DETECT); UR BENZODIAZEPIN QUAL NONE DETECTED (NONE DETECT); UR CANNABINOIDS QUAL NONE DETECTED (NONE DETECT); UR COCAINE QUAL NONE DETECTED (NONE DETECT); UR METHADONE QUAL NONE DETECTED (NONE DETECT); UR OPIATES QUAL NONE DETECTED (NONE DETECT); UR OXYCODONE QUAL NONE DETECTED (NONE DETECT); UR PCP QUAL NONE DETECTED (NONE DETECT)
[2019-09-30] MEDS ORDERED: VANCOMYCIN 1 GM/NS 1 GM/250 ML IVPB IV ONE ×2 (16:29→23:30)
[2019-09-30] MEDS ORDERED: TYLENOL PO PRN (16:29)
[2019-09-30] MEDS ORDERED: ZOFRAN IV PRN (16:29)
[2019-09-30] MEDS ORDERED: LEVAQUIN 750 MG/D5W 750 MG/150 ML IVPB IV ONE (16:29)
[2019-09-30 16:33] LABS: URINE CASTS NONE SEEN; URINE CRYSTALS NONE SEEN; URINE SMALL ROUND CELLS NONE SEEN; URINE YEAST NONE SEEN
[2019-09-30] MEDS ORDERED: VANCOMYCIN IV PER PHARMACY MISC SCH (19:18)
[2019-09-30] MEDS ORDERED: DUONEB (A & A) INH SCH ×2 (19:30)
[2019-09-30] MEDS: LOVENOX SUBQ SCH (19:53)
[2019-09-30] MEDS: DUONEB (A & A) INH SCH ×2 (20:02→22:54)
[2019-09-30] MEDS: MUCOMYST 20% INH SCH (20:02)
--- NOTE | 2019-09-30 21:00 | HISTORY AND PHYSICAL ---
CHIEF COMPLAINT: Confusion, agitation. HISTORY OF PRESENT ILLNESS: Mr. Menjivar is a 69-year-old, white gentleman, recently discharged from [facility] after he had a fall and weakness. The patient went to rehab. The patient was getting physical therapy. Last few days, the patient had increasing confusion, agitation, and patient was not sleeping well. The patient was trying to take the TV of the wall. He removed the water bottle from his oxygen machine, more agitated, restless. I added trazodone to help him sleep a few days ago. Also, increased his Requip to 0.5 mg. Yesterday, patient was trying to put both of his legs in one sleeve of his pants and he fell, but no major trauma according to nurses at the [facility]. The patient was about to be discharged from the rehab in a day or two. The patient made a comment at the [facility] where he knew how to take care of himself. According to his sister, two of his family members killed themselves. The patient does have psychiatric problem including schizophrenia. Sister was concerned. The patient was sent to the emergency room. Workup in the ER did reveal bronchopneumonia and possible UTI, and we decided to admit the patient for further care. The patient was complaining of cough, chest congestion. The patient does have COPD. He denied any hemoptysis. No high-grade fever. The patient did have some chills. The patient was getting short of breath with minimal exertion. He denied any typical chest pain, at times palpitation. No orthopnea or PND. The patient has significant problem with restless legs syndrome. The patient was not able to relax. No dysuria or hematuria. The patient had polyuria, polydipsia. We removed the Dover catheter almost two weeks ago, and patient was voiding well. No gross hematuria. The patient is still has problem with constipation. No heat or cold intolerance. The patient had arthritic pain in the knee, also in the neck, at times pain in the shoulder, and weakness in the right upper limb was getting better. The patient did have at times hallucinations, bilateral leg swelling. The patient does have polyuria, polydipsia. No further history available at this time. ALLERGIES: Penicillin and Sulfa. CURRENT MEDICATIONS: Include Depakote, Zyprexa, propranolol, Requip, benztropine, nebulizer treatment, aspirin, Lipitor, Coreg, Colace, folic acid, Glucophage, nitroglycerin, Prilosec, MiraLAX, and Flomax. PAST MEDICAL HISTORY: Hypertension, hyperlipidemia, noninsulin-dependent diabetes mellitus. The patient was getting workup for sleep apnea, but he did not finish it. Chronic constipation, BPH, morbid obesity, osteoarthritis, degenerative disk disease, gastritis, and reflux disease. PERSONAL HISTORY: Single. Nonsmoker. Denied alcohol or substance abuse. Patient used to smoke heavily, quit smoking a few months ago. FAMILY HISTORY: Noncontributory. REVIEW OF SYSTEMS: As per HPI. The patient is gaining weight. At times, hallucinations and confusion. Weakness in the right upper limb improving. Oral intake fair. PHYSICAL EXAMINATION: GENERAL: An elderly white gentleman in mild distress. VITAL SIGNS: Blood pressure 129/71, pulse 90, respirations 24, temperature 97.6 degrees. SKIN: Senile turgor. HEENT: Head atraumatic, normocephalic. [place] conjunctivae. Anicteric sclerae. Extraocular muscle movement normal. Fundus cannot be penetrated. Good oral hygiene. No tonsillopharyngeal congestion or exudate. Ears and nose benign. NECK: Supple. No JVD, thyromegaly, or lymphadenopathy. CHEST: Bibasilar crepitation. Bilateral occasional wheezing. CARDIOVASCULAR: S1 and S2 heard. No gallop or thrill. ABDOMEN: Soft, globular. Bowel sounds present. No guarding or rigidity. EXTREMITIES: No cyanosis, clubbing. No acute DVT. Bilateral leg swelling. Crepitation of both the knee joints. CENTRAL NERVOUS SYSTEM: Alert, awake, answering questions fairly well. Able to move all 4 limbs. Crepitation of both the knee joints. LABORATORY AND DIAGNOSTIC DATA: Revealed WBC count 9.98, hemoglobin 9.8, hematocrit 32, platelet count 411,000. Blood gas, pH 7.32, pCO2 of 58, PO2 of 88, O2 saturation was 98.2, this was done on FiO2 of 36% via nasal cannula. Electrolytes: Sodium 131, potassium 4.3, chloride 96, carbon dioxide 25, calcium 8.3, total protein 6.2. Urinalysis did reveal leukocytes large, too-numerous- to-count WBC. Urine drug screen was negative. RPR was nonreactive. The patient's chest x-ray did reveal right upper lobe bronchopneumonia. CT scan of the brain was fairly benign. CONSIDERATION: Patient admitted with altered mental status. Could be due to his underlying medical condition, bronchopneumonia. Urinalysis did reveal urinary tract infection. The patient does have schizophrenia. His other problems include: 1. Degenerative disk disease in the neck. 2. Morbid obesity. 3. Gastritis. 4. Reflux disease. 5. Chronic constipation. 6. Chronic obstructive pulmonary disease. 7. Hypertension. 8. History suggestive of noninsulin-dependent diabetes mellitus. 9. Restless legs syndrome. PLAN: Admit the patient. Intravenous antibiotics, pulmonary toilet, close observation. Overall plan discussed at length with the patient. I did talk to the patient about suicidal ideation or plan and patient declined. I started patient on vancomycin and Azactam for gram-negative coverage. Continue home medicine. cc: Pasha Goodrich MD
[2019-10-01] MEDS: COREG PO SCH ×3 (00:17→20:33)
[2019-10-01] MEDS: REQUIP PO SCH ×2 (00:17→20:33)
[2019-10-01] MEDS: FLOMAX PO SCH ×2 (00:18→20:33)
[2019-10-01] MEDS: LIPITOR PO SCH ×2 (00:18→20:34)
[2019-10-01] MEDS: COGENTIN PO SCH ×3 (00:18→20:33)
[2019-10-01] MEDS: DEPAKOTE ER PO SCH ×2 (00:18→20:34)
[2019-10-01] MEDS: COLACE PO SCH ×3 (00:18→20:33)
[2019-10-01] MEDS: ZYPREXA PO SCH ×2 (02:45→20:34)
[2019-10-01] MEDS: AZACTAM 1 GM in NS 50 ML IV SCH ×3 (06:16→20:34)
[2019-10-01] MEDS: PRILOSEC PO SCH (06:16)
--- NOTE | 2019-10-01 07:25 | PROGRESS NOTE ---
DATE: 10/01/2019 SUBJECTIVE: Mr. Menjivar is doing fair. The patient was very restless at night and not sleeping well. Denied any fever or chills. No nausea or vomiting. Mild cough. No expectoration. The patient was admitted with pneumonia and a urinary tract infection, known case of schizophrenia. OBJECTIVE: His vital signs noted. Neck: Supple. No JVD. Lungs: Bibasilar crepitations. Heart: S1 and S2 heard. Abdomen: Soft, globular. Bowel sounds present. BUSINESS OPERATIONS MANAGER: Alert, awake. Able to move all 4 limbs. Crepitus leg. Minimal swelling, both the legs, much less than yesterday. CONSIDERATION: 1. Right upper lobe bronchopneumonia. 2. Urinary tract infection. Urine culture is pending. 3. Stool for occult blood is negative. 4. Schizophrenia. 5. Obesity. 6. Restless legs syndrome. PLAN: We will continue current treatment. IV antibiotics, pulmonary toilet, close observation. Overall plan discussed with nurses. His lactate levels were normal. cc: Pasha Goodrich MD
[2019-10-01] MEDS: MUCOMYST 20% INH SCH ×2 (07:34→19:22)
[2019-10-01] MEDS: DUONEB (A & A) INH SCH ×5 (07:34→23:29)
[2019-10-01 08:08] LABS: BASO# 0.04 X1000 (0.0-0.2); BASO% 0.4 % (0.0-0.8); EOS# 0.28 X1000 (0.0-0.7); EOS% 2.8 % (0.0-10.0); HEMATOCRIT 33.4 % (42.0-52.0); HEMOGLOBIN 9.8 g/dL (14.0-18.0); IMM GRAN# 0.14 X1000 (0.0-0.04); IMM GRAN% 1.4 % (0.0-0.5); LYMPH# 1.56 X1000 (1.2-3.4); LYMPH% 15.6 % (20.5-51.1); MCH 26.8 PG (27-31); MCHC 29.3 g/dL (33-37); MCV 91.3 FL (81-99); MONO# 2.26 X1000 (0.11-0.59); MONO% 22.5 % (1.7-9.3); MPV 8.9 FL (7.4-10.4); NEUT# 5.75 X1000 (1.4-6.5); NEUT% 57.3 % (42.2-75.2); PLT 395 X1000 (130-400); RBC 3.66 XMIL (4.7-6.1); RDW 14.9 % (11.5-14.5); WBC 10.03 X1000 (4.8-10.8)
[2019-10-01 08:18] LABS: HEMOGLOBIN A1C 5.6 % (4.8-6.0)
[2019-10-01 08:36] LABS: AGAP 9; ALB/GLOB RATIO 0.7; ALBUMIN 2.3 g/dL (3.5-5.0); ALKALINE PHOSPHATASE 91 U/L (32-122); BUN 9 mg/dL (8-22); CALCIUM 8.7 mg/dL (8.8-10.2); CHLORIDE 98 mmol/L (98-107); COSMO 270; CREATININE 0.7 mg/dL (0.7-1.2); ESTIMATED GFR > 60; GLUCOSE 93 mg/dL (70-104); GOT 26 U/L (10-34); GPT 13 U/L (10-44); LIPASE 21 U/L (13-60); MAGNESIUM 1.7 mg/dL (1.5-2.7); SODIUM 136 mmol/L (136-145); TCO2 29 mmol/L (25-35); TOTAL BILIRUBIN 0.33 mg/dL (0.20-1.00); TOTAL PROTEIN 5.8 g/dL (6.3-8.3)
[2019-10-01] MEDS: GLUCOPHAGE XR PO SCH (09:37)
[2019-10-01] MEDS: MIRALAX PO SCH (09:38)
[2019-10-01] MEDS: ASPIRIN EC PO SCH (09:38)
[2019-10-01] MEDS: FOLIC ACID PO SCH (09:38)
[2019-10-01 09:46] LABS: BANDS 3 % (0-1); LYMPHS 15 % (21-51); MONO 20 % (1-9); SEGS 62 % (42-75)
--- NOTE | 2019-10-01 12:03 | Diag Imaging Result Doc PS360 ---
CT ANGIOGRM PULMONARY ARTERIES - 10/01/2019 INDICATION: elevated d dimer TECHNIQUE: Axial CT images were obtained after administering intravenous contrast. Coronal MIP images were generated. COMPARISON: Chest x-ray 09/30/2019 FINDINGS: There is no definite pulmonary embolism. There is mild cardiomegaly. There is a dense infiltrate in the lateral right upper lobe. There is some hazy infiltrate in the left lung base as well. There is also some hazy infiltrate in the lingula and left lower lobe. Major airways are clear. Upper abdominal images are unremarkable. Bones are intact. IMPRESSION: Negative for pulmonary embolism. Bilateral bronchopneumonia. Mild cardiomegaly. This exam was performed using automated exposure control, adjustment of mA or kV according to patient size, and/or use of iterative reconstruction technique Electronically signed by Mohan Hernandez 10/01/2019 12:01 PM
[2019-10-01] MEDS: VANCOMYCIN 2,000 MG in NS 500 ML IV SCH (12:20)
[2019-10-01] MEDS: KLONOPIN PO SCH (20:33)
[2019-10-01] MEDS: LOVENOX SUBQ SCH (20:36)
[2019-10-02] MEDS: GEODON IM PRN ×2 (00:29→13:55)
[2019-10-02] MEDS: VANCOMYCIN 2,000 MG in NS 500 ML IV SCH ×2 (00:30→13:49)
[2019-10-02] MEDS: STERILE WATER INJ. INJ PRN ×2 (00:30→13:55)
[2019-10-02] MEDS: AZACTAM 1 GM in NS 50 ML IV SCH ×3 (04:40→21:52)
--- NOTE | 2019-10-02 06:45 | Extremity Venous Study ---
PROCEDURE NAME: Venous U/S Bilateral Legs - 10/01/2019 REQUESTING PHYSICIAN: Pasha Goodrich MD OBSTETRICAL TECH: Radha INDICATIONS: Elevated D-dimer. COMPARISON: Previous comparison from 04/20/2019. EQUIPMENT: [employer] E9 ultrasound system with a 9 L-D transducer. FINDINGS: Images of the bilateral lower extremity venous systems were obtained in both sagittal and transverse planes. Doppler was used to evaluate veins for spontaneity, phasicity, respiratory excursion, and digital augmentation. RESULTS: There is a chronic appearing clot in the distal right superficial femoral vein that is not occluding flow. There is no acute process noted. There is no superficial venous thrombosis noted. INTERPRETATION: Mild chronic DVT noted in the right distal superficial femoral vein. cc: MD Pasha Geller MD
[2019-10-02] MEDS: PRILOSEC PO SCH (07:00)
[2019-10-02] MEDS: MUCOMYST 20% INH SCH ×2 (07:52→19:50)
[2019-10-02] MEDS: DUONEB (A & A) INH SCH ×5 (07:52→23:20)
[2019-10-02] MEDS: ASPIRIN EC PO SCH (10:55)
[2019-10-02] MEDS: COLACE PO SCH ×2 (10:55→21:53)
[2019-10-02] MEDS: COGENTIN PO SCH ×2 (10:55→21:58)
[2019-10-02] MEDS: FOLIC ACID PO SCH (10:55)
[2019-10-02] MEDS: GLUCOPHAGE XR PO SCH (10:55)
[2019-10-02] MEDS: COREG PO SCH ×2 (10:55→21:54)
[2019-10-02] MEDS: MIRALAX PO SCH (10:55)
[2019-10-02] MEDS ORDERED: CALMOSEPTINE OINTMENT TOP PRN (13:10)
--- NOTE | 2019-10-02 15:47 | PROGRESS NOTE ---
DATE: 10/02/2019 SUBJECTIVE: Mr. Menjivar is doing fair. The patient does have occasional cough with scanty sputum production. The patient was able to sleep well last night. The patient was trying to get out of bed. At times, we have to put restraints. The patient had Geodon border because of his agitation. The patient was urinating randomly everywhere. No nausea or vomiting. No typical chest pain. History part is limited. OBJECTIVE: Vital Signs: His vital signs are noted. Neck: Supple. No JVD. Lungs: Bibasilar crepitation. Heart: S1 and S2 heard. Abdomen: Soft, globular. Bowel sounds present. AIRCRAFT PARTS ASSEMBLER: Alert, awake, able to move all 4 limbs. LABORATORY DATA: The patient's blood work done yesterday noted. CONSIDERATION: 1. Bronchopneumonia. 2. Schizophrenia. 3. Morbid obesity. 4. Agitation. 5. History suggestive of benign prostatic hypertrophy. The patient is on Depakote, also Zyprexa. I am going to stop Geodon. Continue rest of the treatment. Close observation. We will check appropriate labs and chest x-ray tomorrow. cc: Pasha Goodrich MD
[2019-10-02] MEDS: FLOMAX PO SCH (21:53)
[2019-10-02] MEDS: DEPAKOTE ER PO SCH (21:53)
[2019-10-02] MEDS: LOVENOX SUBQ SCH (21:53)
[2019-10-02] MEDS: LIPITOR PO SCH (21:53)
[2019-10-02] MEDS: REQUIP PO SCH (21:53)
[2019-10-02] MEDS: KLONOPIN PO SCH (21:53)
[2019-10-02] MEDS: ZYPREXA PO SCH (21:58)
[2019-10-03] MEDS: VANCOMYCIN 2,000 MG in NS 500 ML IV SCH ×2 (00:50→12:37)
[2019-10-03] MEDS: AZACTAM 1 GM in NS 50 ML IV SCH ×3 (05:50→21:02)
[2019-10-03] MEDS: PRILOSEC PO SCH (06:01)
[2019-10-03 06:18] LABS: ALLEN TEST YES; BE 7.6 mmoll (-3.0-3.0); BLOOD TYPE ARTERIAL; HCO3-(ACT) 30.8 mmoll (20.0-26.0); METHB 0.9 % (0.0-1.5); O2(CT) 11.7 mL/dL (15.0-23.0); O2HB 92.8 % (95.0-99.0); PO2(98.6) 70 mmHg (60-100); SAMPLE BLOOD; SAO2 95.8 % (95.0-100.0); THB 8.9 g/dL (11.5-17.4); pH(98.6) 7.37 (7.35-7.45)
[2019-10-03 06:42] LABS: MODALITY CANNULA; PCO2(98.6) 59 mmHg (35-45)
[2019-10-03] MEDS: DUONEB (A & A) INH SCH ×5 (07:48→23:11)
[2019-10-03] MEDS: MUCOMYST 20% INH SCH ×2 (07:48→19:36)
[2019-10-03 08:19] LABS: BASO# 0.01 X1000 (0.0-0.2); BASO% 0.1 % (0.0-0.8); EOS# 0.12 X1000 (0.0-0.7); EOS% 1.6 % (0.0-10.0); HEMATOCRIT 32.8 % (42.0-52.0); HEMOGLOBIN 9.6 g/dL (14.0-18.0); IMM GRAN# 0.11 X1000 (0.0-0.04); IMM GRAN% 1.5 % (0.0-0.5); LYMPH# 1.46 X1000 (1.2-3.4); LYMPH% 19.3 % (20.5-51.1); MCHC 29.3 g/dL (33-37); MCV 92.1 FL (81-99); MONO% 18.5 % (1.7-9.3); MPV 8.9 FL (7.4-10.4); NEUT# 4.47 X1000 (1.4-6.5); PLT 423 X1000 (130-400); RBC 3.56 XMIL (4.7-6.1); RDW 15.1 % (11.5-14.5); WBC 7.57 X1000 (4.8-10.8)
[2019-10-03 08:52] LABS: AGAP 11; ALB/GLOB RATIO 0.6; ALBUMIN 2.2 g/dL (3.5-5.0); ALKALINE PHOSPHATASE 76 U/L (32-122); BUN 8 mg/dL (8-22); CALCIUM 8.6 mg/dL (8.8-10.2); CHLORIDE 102 mmol/L (98-107); COSMO 281; CREATININE 0.7 mg/dL (0.7-1.2); ESTIMATED GFR > 60; GLUCOSE 86 mg/dL (70-104); GOT 23 U/L (10-34); GPT 11 U/L (10-44); MAGNESIUM 1.7 mg/dL (1.5-2.7); POTASSIUM 3.7 mmol/L (3.5-5.1); SODIUM 142 mmol/L (136-145); TCO2 29 mmol/L (25-35); TOTAL BILIRUBIN 0.29 mg/dL (0.20-1.00); TOTAL PROTEIN 5.8 g/dL (6.3-8.3)
--- NOTE | 2019-10-03 08:58 | Diag Imaging Result Doc PS360 ---
EXAM: CHEST-1 VIEW INDICATION: pneumonia TECHNIQUE: One view COMPARISON: 09/30/2019 FINDINGS: Inspiration is suboptimal. There has been interval worsening of the infiltrate in the right lung. It is in the right mid to lower lung zone on the current study. No new consolidations are identified, otherwise. Cardiac silhouette is stable. IMPRESSION: Interval worsening of infiltrate on the right. Electronically signed by Pop Umana 10/03/2019 8:55 AM
[2019-10-03] MEDS: COGENTIN PO SCH ×2 (10:16→21:03)
[2019-10-03] MEDS: ASPIRIN EC PO SCH (10:16)
[2019-10-03] MEDS: GLUCOPHAGE XR PO SCH (10:16)
[2019-10-03] MEDS: FOLIC ACID PO SCH (10:16)
[2019-10-03] MEDS: MIRALAX PO SCH (10:16)
[2019-10-03] MEDS: COLACE PO SCH ×2 (10:16→21:03)
[2019-10-03] MEDS: COREG PO SCH ×2 (10:17→21:02)
[2019-10-03] MEDS: ZITHROMAX 500 MG/NS 500 MG/250 ML IVPB IV SCH (11:14)
--- NOTE | 2019-10-03 11:14 | PROGRESS NOTE ---
DATE: 10/03/2019 SUBJECTIVE: The patient says he is feeling a little bit better. He does look very tired. Falls back asleep easily. Says his coughing is better. Chest x-ray however shows worsening of infiltrate in the right lower lobe. This may be following the clinical course or may actually be getting a little bit worse. OBJECTIVE: Vital Signs: Blood pressure is 121/60, respirations 24, pulse 99, temperature 98.8 degrees Fahrenheit. HEENT: Normocephalic. EOMS intact. LESTER. Throat clear. Lungs: Have rales in the right base. LABS: White count is 7570, hemoglobin 9.6, hematocrit 32.8. Blood gas shows a pH of 7.37, pCO2 of 59, PO2 of 70. Urine grows Enterococcus. He is on vancomycin and Azactam. ASSESSMENT: 1. Right lower lobe pneumonia. 2. Enterococcus urinary tract infection. 3. Hypercapnia. PLAN: We will add Zithromax to his regimen. He is allergic to penicillin. He is not sure about cephalosporins. We will get another chest x-ray in a couple of days. Blood cultures had no growth. cc: MD Pasha Tuttle Jr, MD
[2019-10-03] MEDS: LOVENOX SUBQ SCH (21:02)
[2019-10-03] MEDS: FLOMAX PO SCH (21:02)
[2019-10-03] MEDS: KLONOPIN PO SCH (21:02)
[2019-10-03] MEDS: LIPITOR PO SCH (21:03)
[2019-10-03] MEDS: DEPAKOTE ER PO SCH (21:03)
[2019-10-03] MEDS: REQUIP PO SCH (21:03)
[2019-10-03] MEDS: ZYPREXA PO SCH (21:03)
[2019-10-04] MEDS: VANCOMYCIN 2,000 MG in NS 500 ML IV SCH ×2 (00:19→14:27)
[2019-10-04] MEDS: DUONEB (A & A) INH SCH ×6 (03:39→23:03)
[2019-10-04] MEDS: AZACTAM 1 GM in NS 50 ML IV SCH ×3 (04:52→20:09)
[2019-10-04] MEDS: PRILOSEC PO SCH (06:12)
[2019-10-04] MEDS: MUCOMYST 20% INH SCH ×2 (07:30→20:10)
[2019-10-04] MEDS: ASPIRIN EC PO SCH (08:31)
[2019-10-04] MEDS: COGENTIN PO SCH ×2 (08:31→20:09)
[2019-10-04] MEDS: COREG PO SCH ×2 (08:31→20:10)
[2019-10-04] MEDS: FOLIC ACID PO SCH (08:31)
[2019-10-04] MEDS: COLACE PO SCH ×2 (08:31→20:09)
[2019-10-04] MEDS: MIRALAX PO SCH (08:32)
[2019-10-04] MEDS: GLUCOPHAGE XR PO SCH (08:32)
[2019-10-04 08:46] LABS: BASO# 0.01 X1000 (0.0-0.2); BASO% 0.1 % (0.0-0.8); EOS# 0.17 X1000 (0.0-0.7); EOS% 2.4 % (0.0-10.0); HEMATOCRIT 32.2 % (42.0-52.0); HEMOGLOBIN 9.4 g/dL (14.0-18.0); IMM GRAN# 0.07 X1000 (0.0-0.04); LYMPH# 1.36 X1000 (1.2-3.4); LYMPH% 19.2 % (20.5-51.1); MCH 26.9 PG (27-31); MCHC 29.2 g/dL (33-37); MCV 92.3 FL (81-99); MONO# 1.27 X1000 (0.11-0.59); MONO% 17.9 % (1.7-9.3); MPV 8.9 FL (7.4-10.4); NEUT% 59.4 % (42.2-75.2); PLT 393 X1000 (130-400); RBC 3.49 XMIL (4.7-6.1); RDW 15.1 % (11.5-14.5); WBC 7.08 X1000 (4.8-10.8)
[2019-10-04 09:16] LABS: AGAP 9; BUN 10 mg/dL (8-22); CALCIUM 8.5 mg/dL (8.8-10.2); CHLORIDE 104 mmol/L (98-107); COSMO 284; CREATININE 0.7 mg/dL (0.7-1.2); ESTIMATED GFR > 60; GLUCOSE 94 mg/dL (70-104); POTASSIUM 3.7 mmol/L (3.5-5.1); SODIUM 143 mmol/L (136-145); TCO2 30 mmol/L (25-35)
[2019-10-04] MEDS: ZITHROMAX 500 MG/NS 500 MG/250 ML IVPB IV SCH (10:38)
--- NOTE | 2019-10-04 11:28 | PROGRESS NOTE ---
DATE: 10/04/2019 SUBJECTIVE: The patient is feeling much better. He is more alert. He has no new complaints today. OBJECTIVE: Temperature is 99 degrees Fahrenheit, pulse 96 and regular, respirations 16, blood pressure 125/64, oxygen saturation is 93%. HEENT: He is normocephalic. EOMs intact. PERRLA. Throat clear. Lungs have a few rales in the bases. Chest x-ray on 10/03/2019 shows worsening of the infiltrates. Zithromax was added yesterday as well. He seems to be feeling better. ASSESSMENT: Pneumonia. PLAN: Continue antibiotics. cc: MD Pasha Tuttle Jr, MD
[2019-10-04] MEDS: FLOMAX PO SCH (20:09)
[2019-10-04] MEDS: LOVENOX SUBQ SCH (20:09)
[2019-10-04] MEDS: DEPAKOTE ER PO SCH (20:09)
[2019-10-04] MEDS: ZYPREXA PO SCH (20:10)
[2019-10-04] MEDS: LIPITOR PO SCH (20:10)
[2019-10-04] MEDS: REQUIP PO SCH (20:10)
[2019-10-04] MEDS: KLONOPIN PO SCH (22:31)
[2019-10-05] MEDS: AZACTAM 1 GM in NS 50 ML IV SCH ×3 (04:00→21:45)
[2019-10-05] MEDS: VANCOMYCIN 2,000 MG in NS 500 ML IV SCH ×2 (04:41→17:13)
[2019-10-05] MEDS: PRILOSEC PO SCH (06:04)
[2019-10-05] MEDS ORDERED: LINZESS PO ONE (06:34)
--- NOTE | 2019-10-05 06:49 | Diag Imaging Result Doc PS360 ---
EXAM: CHEST-PORTABLE HISTORY: pneumonia TECHNIQUE: Single view COMPARISON: 10/03/2019 FINDINGS: Poor inspiratory effort. There are infiltrates in the mid right lung. Heart is mildly enlarged. Mild vascular prominence. No pleural effusions identified. Old left rib fractures. IMPRESSION: Stable chest Electronically signed by Willis Phillips 10/05/2019 6:47 AM
--- NOTE | 2019-10-05 07:39 | PROGRESS NOTE ---
DATE: 10/05/2019 SUBJECTIVE: Mr. Menjivar is doing fair. The patient does have cough and chest congestion, and at times expectoration. On detailed questioning, patient does have at times dysphagia. The patient is vague and a poor historian, possibility of aspiration cannot be ruled out. The patient has multilobar pneumonia. No diarrhea, blood or mucus in the stool. At times, constipation. His psychosis seems to be getting better. No typical chest pain or palpitations. OBJECTIVE: Vital signs noted.Neck: Supple. No JVD. Lungs: Bibasilar crepitations. Occasional wheezing. Heart: S1 and S2 heard. Abdomen: Soft, globular. Bowel sounds present. Extremities: No cyanosis or clubbing. No acute DVT. CARD ASSEMBLER: Alert, awake, and able to move all 4 limbs. PROBLEMS: The patient's problems includes multilobar pneumonia and at times dysphagia. The patient is on vancomycin, Azactam, and Zithromax. I am going to do swallowing evaluation. LABORATORY DATA: Labs done yesterday, WBC count 7.08, hemoglobin 9.4, hematocrit 32.2, and platelet count 393,000. The patient does have hypercarbic respiratory failure. Electrolytes were benign. PROBLEMS: His other problems include COPD, morbid obesity, schizophrenia, gastritis and reflux disease. Restless legs syndrome. Continue current treatment. I am going to consult Dr. Li for further evaluation. Continue rest of the treatment and close observation. cc: Pasha Goodrich MD
[2019-10-05] MEDS: MUCOMYST 20% INH SCH ×2 (07:58→19:41)
[2019-10-05] MEDS: DUONEB (A & A) INH SCH ×5 (07:58→23:14)
[2019-10-05] MEDS: COREG PO SCH ×2 (08:42→21:47)
[2019-10-05] MEDS: ZITHROMAX 500 MG/NS 500 MG/250 ML IVPB IV SCH ×2 (08:42→13:15)
[2019-10-05] MEDS: COGENTIN PO SCH ×2 (08:43→21:46)
[2019-10-05 08:46] LABS: BASO# 0.01 X1000 (0.0-0.2); BASO% 0.1 % (0.0-0.8); EOS# 0.13 X1000 (0.0-0.7); EOS% 1.5 % (0.0-10.0); HEMATOCRIT 35.5 % (42.0-52.0); HEMOGLOBIN 10.3 g/dL (14.0-18.0); IMM GRAN# 0.11 X1000 (0.0-0.04); IMM GRAN% 1.2 % (0.0-0.5); LYMPH# 1.38 X1000 (1.2-3.4); LYMPH% 15.6 % (20.5-51.1); MCH 26.8 PG (27-31); MCV 92.2 FL (81-99); MONO% 13.6 % (1.7-9.3); MPV 8.8 FL (7.4-10.4); NEUT# 5.99 X1000 (1.4-6.5); PLT 424 X1000 (130-400); RBC 3.85 XMIL (4.7-6.1); RDW 15.1 % (11.5-14.5); WBC 8.82 X1000 (4.8-10.8)
[2019-10-05 09:02] LABS: AGAP 11; BUN 11 mg/dL (8-22); CALCIUM 8.6 mg/dL (8.8-10.2); CHLORIDE 101 mmol/L (98-107); COSMO 279; CREATININE 0.7 mg/dL (0.7-1.2); ESTIMATED GFR > 60; GLUCOSE 104 mg/dL (70-104); POTASSIUM 4.2 mmol/L (3.5-5.1); SODIUM 140 mmol/L (136-145); TCO2 28 mmol/L (25-35)
--- NOTE | 2019-10-05 10:40 | Diag Imaging Result Doc PS360 ---
EXAM: BA SWALLOW W/VIDEO SPEECH THER 10/05/2019 HISTORY: dysphagia TECHNIQUE: 80 images, 57 mGy, 31 seconds fluoroscopy time. COMMENT: There are no previous studies. There is minimal aspiration with thin liquids. There is also minimal aspiration with pudding consistency barium. Some tertiary contractions are seen in the mid and distal thoracic esophagus. No evidence of stricture or obstruction is present. IMPRESSION: 1. Minimal aspiration. 2. Presbyesophagus. Electronically signed by Durga Stephens 10/05/2019 10:38 AM
[2019-10-05] MEDS: ASPIRIN EC PO SCH (11:40)
[2019-10-05] MEDS: MIRALAX PO SCH (11:40)
[2019-10-05] MEDS: FOLIC ACID PO SCH (11:40)
[2019-10-05] MEDS: GLUCOPHAGE XR PO SCH (11:40)
[2019-10-05] MEDS: COLACE PO SCH ×2 (11:40→21:46)
--- NOTE | 2019-10-05 21:27 | Diag Imaging Result Doc PS360 ---
EXAM: KUB ABDOMEN 10/05/2019 HISTORY: abdominal distention TECHNIQUE: KUB COMMENT: There is retained barium in the distal small bowel and ascending colon. There is some stool in the rectum. There is no evidence of organomegaly or mass. Compared to 09/17/2019 the quantity of stool present in the colon has diminished. IMPRESSION: Improved constipation. Electronically signed by Durga Stephens 10/05/2019 9:25 PM
[2019-10-05] MEDS: DEPAKOTE ER PO SCH (21:46)
[2019-10-05] MEDS: LIPITOR PO SCH (21:46)
[2019-10-05] MEDS: REQUIP PO SCH (21:46)
[2019-10-05] MEDS: KLONOPIN PO SCH (21:46)
[2019-10-05] MEDS: ZYPREXA PO SCH (21:47)
[2019-10-05] MEDS: FLOMAX PO SCH (21:47)
[2019-10-05] MEDS: LOVENOX SUBQ SCH (21:47)
--- NOTE | 2019-10-05 22:54 | PULMONOLOGY CONSULTATION ---
DATE: 10/05/2019 REQUESTING CLINICIAN: Dr. Goodrich. REASON FOR CONSULTATION: Pneumonia. HISTORY OF PRESENT ILLNESS: Mr. Menjivar is a 69-year-old male, prior smoker, with multiple medical problems outlined below who was admitted to the hospital in mid September following an episode of syncope. Stroke was initial consideration but MRI of the brain was negative. Neurology evaluated the patient and felt that an ischemic event in the brain was unlikely. The patient had some upper extremity weakness and CT scan revealed multi foraminal stenosis and it was felt that weakness may have been related to his fall with a possible brachial plexus neuropathy or cervical radiculopathy. His hospital course was also complicated by significant constipation. He was discharged to the rehab facility after clinical improvement. The patient was brought to the emergency room on 09/30/2019 with agitation and confusion. Microbiology did reveal Enterococcus faecalis. Initial chest x-ray revealed bilateral infiltrates. The patient underwent modified barium swallow today which revealed aspiration on both thin liquids and barium. PAST MEDICAL HISTORY: 1. Chronic obstructive pulmonary disease with prior tobacco use. 2. Diabetes mellitus. 3. Hypertension. 4. Dyslipidemia. 5. Constipation. 6. Obesity. 7. Cervical spine disease as per above. 8. Gastroesophageal reflux disease. 9. Psychiatric illness likely related to schizophrenia. 10. Chronic hypoxemic respiratory failure. SOCIAL HISTORY: Prior tobacco use but none for several months. No alcohol use listed. PHYSICAL EXAMINATION: General: Reveals an arousable to alert white male. He is conversant but not completely oriented. He has mild work of breathing with mild audible wheezing. Vital Signs: Blood pressure 149/89, heart rate 89, respiratory rate 18, oxygen saturation 99% on 4 L per nasal cannula. HEENT: Pupils are equal and reactive. Oropharynx clear. Neck: Supple. Chest: Reveals scattered wheezing in all lung multani. Cardiac: S1-S2. Abdomen: Mild to moderately distended with increased tympany. No tenderness elicited on exam. Extremities: Reveal trace edema. LABORATORIES: Urine culture as per HPI. White blood count 8.82, hemoglobin 10.3, platelet count 424,000. Arterial blood gas 2 days ago pH 7.37, pCO2 of 59, PO2 of 70 on 4 L per nasal cannula. Sodium 140, potassium 4.2, chloride 101, bicarbonate 28, BUN 11, creatinine 0.7. IMPRESSION: A 69-year-old with 1. Urinary tract infection. 2. Aspiration pneumonia. 3. Audible wheezing. 4. Chronic hypoxemic and chronic hypercapnic respiratory failure. 5. Mild to moderate abdominal distention. DISCUSSION: A 69-year-old with problems outlined above. He does show radiographic evidence of aspirating and his x-ray has progressed during this hospitalization. This may be related to his urinary tract infection associated with subsequent weakness and changes in mental status. He does have mild increased work of breathing and I am reluctant to allow him to continue to eat at this juncture. I would like to make him NPO for 3 to 4 days to see if his pulmonary status will improve. This will also allow evaluation of his GI tract to ensure he is not obstructed or have severe significant constipation. RECOMMENDATION: 1. Continue current antibiotics for bilateral aspiration pneumonia. 2. Keep NPO except for ice chips and medications. 3. We will initiate Clinimix pending improvement in clinical status. 4. Check a KUB of the abdomen and treat according to findings. 5. Continue current nebulizer regimen. cc: MD Pasha Matthews MD
[2019-10-06] MEDS: VANCOMYCIN 2,000 MG in NS 500 ML IV SCH ×2 (04:57→16:08)
[2019-10-06] MEDS: AZACTAM 1 GM in NS 50 ML IV SCH ×3 (04:58→20:20)
[2019-10-06] MEDS ORDERED: DULCOLAX PR ONE (06:52)
--- NOTE | 2019-10-06 07:23 | PROGRESS NOTE ---
DATE: 10/06/2019 SUBJECTIVE: Mr. Menjivar is doing fair. Occasional cough with scanty sputum production. History part limited. The patient had a modified barium swallow done yesterday, results reviewed. No nausea or vomiting. The patient does have constipation at times. No typical chest pain. No dysuria or hematuria. Appreciate Dr. Li's help managing patient. No agitation or psychosis. PHYSICAL EXAMINATION: Vital signs: Vital signs noted. Neck: Supple. No JVD. Lungs: Bibasilar crepitation. Heart: S1 and S2 heard. Abdomen: Soft, globular. Bowel sounds present. Mild distention of small umbilical hernia. Extremities: No cyanosis, clubbing. No acute DVT. AGENCY SALES MANAGEMENT ASSISTANT: Patient is sleeping but arousable. IMPRESSION: 1. Consideration of multilobar pneumonia. Possibility of aspiration pneumonia cannot be ruled out. 2. Urinary tract infection. 3. Schizophrenia. 4. Morbid obesity. 5. COPD restless legs syndrome. PLAN: 1. I am going to keep him NPO except for medications. 2. Consider Clinimix as recommended by sanitizer. 3. Aspiration precautions. 4. Continue antibiotics.. 5. We will treat his constipation. Overall plan discussed. cc: Pasha Goodrich MD
--- NOTE | 2019-10-06 07:44 | Diag Imaging Result Doc PS360 ---
CHEST-PORTABLE - 10/06/2019 INDICATION: abnormal exam COMPARISON: 10/05/2019 FINDINGS: Stable cardiomegaly and pulmonary vascular congestion. Stable ill-defined interstitial infiltrates compatible with pulmonary edema. Stable focal consolidation in the lateral right midlung. No significant pleural effusion. IMPRESSION: No change from prior. Electronically signed by Mohan Hernandez 10/06/2019 7:41 AM
[2019-10-06] MEDS: DUONEB (A & A) INH SCH ×5 (07:51→23:15)
[2019-10-06] MEDS: MUCOMYST 20% INH SCH ×2 (07:51→20:11)
[2019-10-06 08:22] LABS: AGAP 8; ALB/GLOB RATIO 0.6; ALBUMIN 2.1 g/dL (3.5-5.0); ALKALINE PHOSPHATASE 120 U/L (32-122); BUN 18 mg/dL (8-22); CALCIUM 8.5 mg/dL (8.8-10.2); CHLORIDE 102 mmol/L (98-107); COSMO 279; CREATININE 0.8 mg/dL (0.7-1.2); ESTIMATED GFR > 60; GLUCOSE 97 mg/dL (70-104); GOT 39 U/L (10-34); GPT 21 U/L (10-44); MAGNESIUM 1.8 mg/dL (1.5-2.7); POTASSIUM 3.9 mmol/L (3.5-5.1); SODIUM 139 mmol/L (136-145); TCO2 29 mmol/L (25-35); TOTAL BILIRUBIN 0.27 mg/dL (0.20-1.00); TOTAL PROTEIN 5.9 g/dL (6.3-8.3)
[2019-10-06] MEDS: COREG PO SCH ×2 (08:35→20:25)
[2019-10-06] MEDS: MIRALAX PO SCH (08:36)
[2019-10-06] MEDS: COLACE PO SCH ×2 (08:37→20:25)
[2019-10-06] MEDS: ASPIRIN EC PO SCH (08:37)
[2019-10-06] MEDS: FOLIC ACID PO SCH (08:37)
[2019-10-06] MEDS: PRILOSEC PO SCH (08:37)
[2019-10-06] MEDS: GLUCOPHAGE XR PO SCH (08:37)
[2019-10-06] MEDS: CLINIMIX E 4.25%-5% SOLUTION 1,000 ML IV SCH (08:53)
[2019-10-06 09:27] LABS: BASO# 0.02 X1000 (0.0-0.2); BASO% 0.1 % (0.0-0.8); EOS# 0.15 X1000 (0.0-0.7); EOS% 1.1 % (0.0-10.0); HEMATOCRIT 35.4 % (42.0-52.0); HEMOGLOBIN 10.5 g/dL (14.0-18.0); IMM GRAN# 0.08 X1000 (0.0-0.04); IMM GRAN% 0.6 % (0.0-0.5); LYMPH% 11.6 % (20.5-51.1); MCH 27.5 PG (27-31); MCHC 29.7 g/dL (33-37); MCV 92.7 FL (81-99); MONO% 13.1 % (1.7-9.3); MPV 8.9 FL (7.4-10.4); NEUT# 10.09 X1000 (1.4-6.5); NEUT% 73.5 % (42.2-75.2); PLT 396 X1000 (130-400); RBC 3.82 XMIL (4.7-6.1); RDW 15.5 % (11.5-14.5); WBC 13.74 X1000 (4.8-10.8)
[2019-10-06 10:37] LABS: BANDS 6 % (0-1); LYMPHS 16 % (21-51); MONO 2 % (1-9); SEGS 76 % (42-75)
[2019-10-06] MEDS: COGENTIN PO SCH ×2 (11:41→20:25)
[2019-10-06] MEDS: ZITHROMAX 500 MG/NS 500 MG/250 ML IVPB IV SCH (11:41)
[2019-10-06] MEDS ORDERED: LASIX IV ONE (16:36)
[2019-10-06] MEDS: REQUIP PO SCH (20:24)
[2019-10-06] MEDS: DEPAKOTE ER PO SCH (20:24)
[2019-10-06] MEDS: ZYPREXA PO SCH (20:24)
[2019-10-06] MEDS: FLOMAX PO SCH (20:25)
[2019-10-06] MEDS: KLONOPIN PO SCH (20:25)
[2019-10-06] MEDS: LIPITOR PO SCH (20:26)
[2019-10-06] MEDS: LOVENOX SUBQ SCH (21:31)
--- NOTE | 2019-10-06 22:38 | PULMONOLOGY PROGRESS NOTE ---
DATE: 10/06/2019 SUBJECTIVE: The patient was seen this afternoon. His work of breathing has significantly diminished and he appears much more comfortable than last evening. Family is at bedside. OBJECTIVE: Vital Signs: The patient has been afebrile for the last 24 hours. Blood pressure 147/79, heart rate 101, respiratory rate 20, oxygen saturation 95% on 5 L per nasal. HEENT: Pupils are equal and reactive. Oropharynx appears clear. Neck: Is supple. Chest: Reveals rhonchi bilaterally. Cardiac exam: S1, S2. Abdomen: Is obese and soft. Extremities: Reveal trace edema. LABORATORIES: Chest x-ray reveals mild vascular congestion with infiltrate in the right mid lung zone. This is unchanged. White blood count 13.7, hemoglobin 10.5, platelet count 396,000. Sodium 139, potassium 3.9, chloride 102, bicarbonate 29, BUN 18, creatinine 0.8. IMPRESSION: A 69-year-old with: 1. Aspiration pneumonia. 2. Urinary tract infection. 3. Chronic obstructive pulmonary disease. 4. Significant improvement in respiratory status when compared to the last evening. 5. Mild to moderate abdominal distention. DISCUSSION: A 69-year-old with problems outlined above. Clinically, he is improving. His pulmonary status is less worrisome than last evening. RECOMMENDATIONS: 1. Continue current antibiotics. 2. Agree with Clinimix and ice chips and medication. 3. Continue to treat constipation. 4. Consider advancing oral intake Saturday or at the discretion of Dr. Goodrich. I would recommend that he be out of bed in a chair for all meals. If he fails his next trial at p.o. intake, difficult conversations will need to be made with his family. cc: MD Pasha Matthews MD
[2019-10-07] MEDS: CLINIMIX E 4.25%-5% SOLUTION 1,000 ML IV SCH ×3 (03:32→21:41)
[2019-10-07] MEDS: VANCOMYCIN 2,000 MG in NS 500 ML IV SCH (04:50)
[2019-10-07] MEDS: AZACTAM 1 GM in NS 50 ML IV SCH ×3 (05:24→21:34)
--- NOTE | 2019-10-07 06:58 | PROGRESS NOTE ---
DATE: 10/07/2019 SUBJECTIVE: Mr. Clements is doing fair. The patient did have a bowel movement. Tolerating Clinimix well. No high-grade fever or chills. Denied any nausea or vomiting. OBJECTIVE: Vital signs: Noted. Neck: Supple. No JVD. Lungs: Bilateral good air entry present. Cardiovascular: S1 and S2 heard. Abdomen: Soft, globular. Bowel sounds present. Patient does have a small umbilical hernia and fullness around the umbilicus, could be stool for the mass. I am going to get noncontrast CT scan of the abdomen. Extremities: No cyanosis, clubbing. No acute DVT. Central nervous system: Alert, awake, able to move all 4 limbs. CONSIDERATION: 1. Aspiration pneumonia. 2. Chronic constipation. 3. Urinary tract infection. 4. Mood disorder and schizophrenia. 5. Lab done yesterday noted the patient does have benign prostatic hypertrophy for which he is on Flomax. 6. At the time, tachycardia. I am going to stop Coreg, instead we will start the patient on beta angela, Toprol. PLAN: Discussed with the patient and he is in agreement. cc: Pasha Goodrich MD
[2019-10-07] MEDS: DUONEB (A & A) INH SCH ×5 (07:35→23:22)
[2019-10-07] MEDS: PRILOSEC PO SCH (08:17)
[2019-10-07] MEDS: ASPIRIN EC PO SCH (08:18)
[2019-10-07] MEDS: FOLIC ACID PO SCH (08:18)
[2019-10-07] MEDS: GLUCOPHAGE XR PO SCH (08:18)
[2019-10-07] MEDS: MIRALAX PO SCH (08:18)
[2019-10-07] MEDS: COGENTIN PO SCH ×2 (08:19→21:35)
[2019-10-07] MEDS: COLACE PO SCH ×2 (08:19→21:36)
[2019-10-07] MEDS: TOPROL XL PO SCH (08:23)
--- NOTE | 2019-10-07 08:30 | Diag Imaging Result Doc PS360 ---
EXAM: CT ABDOMEN/PELVIS W/O CONTRAST INDICATION: mass around umbilicus TECHNIQUE: This exam was performed using automated exposure control, adjustment of mA or kV according to patient size, and/or use of iterative reconstruction technique. COMPARISON: None. FINDINGS: There are patchy bibasilar infiltrates and subsegmental atelectasis. There is trace pleural fluid, at least on the right. There is a 3 cm low dense splenic lesion, nonspecific but statistically most likely a cyst containing proteinaceous debris or a hemangioma. There is no splenomegaly. The gallbladder, liver, pancreas, and adrenal glands are unremarkable. There is a small cyst density left renal lesion. There is mild symmetric prominence of the renal collecting systems bilaterally of unknown acuity. However, the urinary bladder is markedly distended. At least partial bladder outlet obstruction should be considered. The prostate is mildly enlarged but it is very heterogeneous and there is a vague somewhat nodular hyperdensity associated with the prostate measuring 3.5 x 3.2 cm axially. This certainly may be a benign hypertrophic nodule. However, neoplasm cannot completely be excluded. Correlation with laboratory values and physical exam is suggested. In the ascending colon on image 111 of series 3, there is a 1.1 cm nodular density that abuts the wall of the colon. This may actually represent adherent stool. A polyp cannot be excluded. No focal bowel wall thickening or bowel obstruction is identified. There is a tiny hiatal hernia. The remainder of the GI tract is grossly unremarkable. There is nonspecific mesenteric edema seen fairly diffusely in the lower abdomen and pelvis. There is milder anasarca involving the superficial soft tissues around the pelvis. There is no evidence of acute osseous abnormality. There is nothing to suggest bony metastatic disease. IMPRESSION: 1.Marked distention of the urinary bladder and mild prominence of both renal collecting systems. Bladder outlet obstruction should be considered. Note that the palpable mass in the periumbilical region is probably the dome of the markedly distended urinary bladder. 2.Mildly enlarged but very heterogeneous prostate with a low dense nodular focus. Please see above discussion. 3.Fairly diffuse mesenteric edema involving the lower abdomen and pelvis as well as milder superficial soft tissue anasarca around the pelvis. 4.Nodular density adherent to the wall of the ascending colon that could represent adherent stool. However, a polyp is also considered. 5.Patchy bibasilar infiltrates and subsegmental atelectasis at both lung bases. Electronically signed by Pop Umana 10/07/2019 8:27 AM
[2019-10-07] MEDS: ZITHROMAX 500 MG/NS 500 MG/250 ML IVPB IV SCH (10:02)
[2019-10-07] MEDS: MUCOMYST 20% INH SCH ×2 (11:26→21:42)
[2019-10-07 13:16] LABS: URINE SOURCE CATH
[2019-10-07 13:23] LABS: BILIRUBIN URINE NEGATIVE (NEGATIVE); BLOOD URINE SMALL (NEGATIVE); COLOR YELLOW; GLUCOSE URINE NEGATIVE (NEGATIVE); KETONE URINE NEGATIVE (NEGATIVE); LEUKOCYTES URINE NEGATIVE (NEGATIVE); NITRITE URINE NEGATIVE (NEGATIVE); PROTEIN URINE 70 mg/dL (NEGATIVE); SP GRAVITY URINE 1.013; TURBIDITY URINE HAZY (CLEAR); UROBILINOGEN URINE NORMAL (NORMAL)
[2019-10-07 13:27] LABS: UR EPITHELIAL CELLS <10 /HPF (<10); URINE BACTERIA NEGATIVE /HPF; URINE RBC <10 /HPF (<10)
[2019-10-07] MEDS: VANCOMYCIN 2 GM in NS 500 ML IV SCH (18:29)
[2019-10-07] MEDS: KLONOPIN PO SCH (21:33)
[2019-10-07] MEDS: ZYPREXA PO SCH (21:34)
[2019-10-07] MEDS: REQUIP PO SCH (21:34)
[2019-10-07] MEDS: FLOMAX PO SCH (21:35)
[2019-10-07] MEDS: LIPITOR PO SCH (21:35)
[2019-10-07] MEDS: DEPAKOTE ER PO SCH (21:35)
[2019-10-07] MEDS: LOVENOX SUBQ SCH (21:36)
--- NOTE | 2019-10-07 21:51 | PULMONOLOGY PROGRESS NOTE ---
DATE: 10/07/2019 SUBJECTIVE: The patient is sleeping but arousable. He is without specific complaints. A Dover catheter was placed following his CT scan of the abdomen today, and he drained 3 L within 3 hours. OBJECTIVE: Vital Signs: The patient has been afebrile for the last 24 hours. Blood pressure 103/57, heart rate 91, respiratory rate 18, oxygen saturation 92%. HEENT: Pupils are equal and reactive. Oropharynx appears clear. Neck: Supple. Chest: Reveals mild wheezing on exhalation. Cardiac exam: S1-S2. Abdomen: Soft Extremities: Reveal trace edema. IMPRESSION: 1. Aspiration pneumonia. 2. Urinary tract infection with urinary retention. 3. Chronic obstructive pulmonary disease. PLAN: 1. Continue Clinimix for now. 2. Consider trial of oral intake tomorrow at the discretion of Dr. Goodrich. I would like him out of bed when he is attempting to eat. cc: MD Pasha Matthews MD
[2019-10-08] MEDS: CLINIMIX E 4.25%-5% SOLUTION 1,000 ML IV SCH ×2 (01:54→18:00)
[2019-10-08] MEDS: AZACTAM 1 GM in NS 50 ML IV SCH ×3 (04:37→21:39)
[2019-10-08] MEDS: PRILOSEC PO SCH (06:33)
--- NOTE | 2019-10-08 07:15 | PROGRESS NOTE ---
DATE: 10/08/2019 SUBJECTIVE: Mr. Menjivar is doing fair. No unusual cough or expectoration. The patient is swallowing his tablets well. Denied any nausea or vomiting. Patient found to have significant urinary retention. We placed Dover catheter, and the patient had around 2500 to 3000 mL of urine that came out. The patient seems to be doing better. The patient had abnormal prostate on CT scan. I am going to get urologist evaluation. OBJECTIVE: Vital Signs: Noted. Neck: Supple. No JVD. Lungs: Bilateral good air entry present. CVS: S1 and S2 heard. Abdomen: Soft, globular. Bowel sounds present. Bladder is not palpable. Extremities: No cyanosis, clubbing. No acute DVT. 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 IMAGING: CT scan of the abdomen and pelvis results reviewed. I did try to talk to his sister yesterday and left a message. The patient had abnormal prostate on CT scan, marked distention of urinary bladder, diffuse mesenteric edema, constipation, subsegmental atelectasis on the CT scan. PLAN: Will gradually advance his diet. I am going to check appropriate labs. Urology consult. Continue rest of the treatment and close observation. cc: Pasha Goodrich MD
[2019-10-08] MEDS: DUONEB (A & A) INH SCH ×4 (07:40→23:38)
[2019-10-08] MEDS: MUCOMYST 20% INH SCH ×2 (07:42→19:43)
[2019-10-08 08:53] LABS: BASO# 0.03 X1000 (0.0-0.2); BASO% 0.5 % (0.0-0.8); EOS# 0.31 X1000 (0.0-0.7); EOS% 4.8 % (0.0-10.0); HEMATOCRIT 31.6 % (42.0-52.0); HEMOGLOBIN 9.4 g/dL (14.0-18.0); IMM GRAN# 0.09 X1000 (0.0-0.04); IMM GRAN% 1.4 % (0.0-0.5); LYMPH# 1.38 X1000 (1.2-3.4); LYMPH% 21.2 % (20.5-51.1); MCH 27.3 PG (27-31); MCHC 29.7 g/dL (33-37); MCV 91.9 FL (81-99); MONO# 0.89 X1000 (0.11-0.59); MONO% 13.7 % (1.7-9.3); MPV 8.8 FL (7.4-10.4); NEUT% 58.4 % (42.2-75.2); PLT 361 X1000 (130-400); RBC 3.44 XMIL (4.7-6.1); RDW 15.4 % (11.5-14.5)
[2019-10-08 09:14] LABS: AGAP 11; ALB/GLOB RATIO 0.6; ALBUMIN 2.2 g/dL (3.5-5.0); ALKALINE PHOSPHATASE 91 U/L (32-122); BUN 22 mg/dL (8-22); CALCIUM 8.6 mg/dL (8.8-10.2); CHLORIDE 102 mmol/L (98-107); COSMO 286; CREATININE 0.8 mg/dL (0.7-1.2); ESTIMATED GFR > 60; GLUCOSE 97 mg/dL (70-104); GOT 23 U/L (10-34); GPT 14 U/L (10-44); POTASSIUM 3.8 mmol/L (3.5-5.1); SODIUM 142 mmol/L (136-145); TCO2 29 mmol/L (25-35); TOTAL BILIRUBIN 0.24 mg/dL (0.20-1.00); TOTAL PROTEIN 5.6 g/dL (6.3-8.3)
[2019-10-08] MEDS: GLUCOPHAGE XR PO SCH (09:47)
[2019-10-08] MEDS: ZITHROMAX 500 MG/NS 500 MG/250 ML IVPB IV SCH (09:47)
[2019-10-08] MEDS: FOLIC ACID PO SCH (09:47)
[2019-10-08] MEDS: TOPROL XL PO SCH (09:47)
[2019-10-08] MEDS: ASPIRIN EC PO SCH (09:47)
[2019-10-08] MEDS: COLACE PO SCH ×2 (09:47→21:37)
[2019-10-08] MEDS: FLOMAX PO SCH ×2 (09:47→21:38)
[2019-10-08] MEDS: MIRALAX PO SCH (09:48)
[2019-10-08] MEDS: COGENTIN PO SCH ×2 (09:48→21:39)
[2019-10-08] MEDS: VANCOMYCIN 2 GM in NS 500 ML IV SCH (18:00)
[2019-10-08] MEDS: REQUIP PO SCH (21:37)
[2019-10-08] MEDS: ZYPREXA PO SCH (21:37)
[2019-10-08] MEDS: LOVENOX SUBQ SCH (21:38)
[2019-10-08] MEDS: KLONOPIN PO SCH (21:38)
[2019-10-08] MEDS: DEPAKOTE ER PO SCH (21:39)
[2019-10-08] MEDS: LIPITOR PO SCH (21:39)
[2019-10-08] MEDS: AVODART PO SCH (23:13)
--- NOTE | 2019-10-08 23:32 | PULMONOLOGY PROGRESS NOTE ---
DATE: 10/08/2019 SUBJECTIVE: The patient is awake, alert, and conversant. He has been taking sips of liquids. He reports he is sitting on the side of the bed when he drinks. OBJECTIVE: Vital Signs: The patient has been afebrile for the last 24 hours. Blood pressure 125/64, heart rate 90, respiratory rate 22, oxygen saturation 97%. HEENT: Pupils are equal and reactive. Oropharynx appears clear. Neck: Supple. Chest: Reveals occasional wheeze bilaterally without rhonchi. Cardiac: S1-S2. Abdomen: Mildly distended, but nontender. Extremities: Without edema. LABORATORIES: Urine culture reveals no growth. White blood count is normal at 6.5, hemoglobin 9.4, platelet count 361,000. IMPRESSION: A 69-year-old with: 1. Aspiration pneumonia. 2. Chronic obstructive pulmonary disease. 3. Urinary tract infection. 4. Dysphagia. PLAN: 1. Agree with trial of oral nutrition. 2. Continue current antibiotics. 3. Dover catheter for urinary retention. cc: MD Pasha Matthews MD
--- NOTE | 2019-10-09 02:22 | CONSULTATION ---
DATE OF CONSULTATION: 10/08/2019 ATTENDING/REFERRING PHYSICIAN: Pasha Goodrich MD. HISTORY OF PRESENT ILLNESS: This 69-year-old male who lives in a [facility] was admitted with mental status changes probably due to a urinary tract infection and pneumonia. The patient was noted to have a mass in the lower abdomen and a CT stone search revealed a very distended bladder all the way up to the umbilicus. Also mentioned, was an enlarged prostate with a distinct nodule. The patient states he had some type of surgery in [place] about 5 years ago on his prostate. He states he was having voiding problems then and they continued after the surgery. The patient has no history of hematuria or kidney stones. He states he has been treated for urinary infections previously. He has no history of urothelial cancers. His urine culture grew Enterococcus faecalis that was resistant to Levaquin and Macrobid. It is sensitive to penicillin, but he is allergic to PENICILLIN AND SULFA. PAST MEDICAL HISTORY: COPD, diabetes, hypertension, elevated cholesterol, significant obesity, gastroesophageal reflux disease and schizophrenia. CURRENT MEDICATIONS: Documented on the chart and include Flomax 0.4 mg b.i.d. PAST SURGICAL HISTORY: Some type of prostate surgery over 5 years ago, colonoscopy with biopsies, hemorrhoidectomy, history of a clavicle fracture. SOCIAL HISTORY: Previous significant tobacco use but none for 6 months ago. ETOH use is negative. ALLERGIES: He is allergic to penicillin and sulfa. He states he is feeling better since he has been in the hospital. He denies any chest pains or abdominal pain since his Dover catheter was placed. PHYSICAL EXAMINATION: General: An obese, age apparent, normally developed, white male, who is cooperative. HEENT: Normal for age. Lungs: Clear. Cardiovascular: Regular rate and rhythm. Abdomen: Obese, soft, nontender. No hepatosplenomegaly or masses. Normal bowel sounds. Genitourinary: Uncircumcised male with Dover catheter in place draining clear urine. Foreskin retracts. Both testes are down. Small bilateral hydroceles. Testes are palpably normal. Rectal: Normal sphincter tone. Prostate about 50 g, smooth, and symmetric. No palpable defects noted. Extremities: No clubbing, cyanosis, or edema. Neurologic: No focal deficits. LABORATORY EVALUATION: He has a white count of 6.5, hemoglobin 9.4, hematocrit 31.6 and platelets are 361,000. Serum electrolytes are normal. BUN 22, creatinine 0.8. PSA drawn earlier today was 1.52, which is well within the normal limits. A CT stone search is as noted in the HPI. IMPRESSION: 1. Patient with multiple medical problems and urinary retention, enlarged prostate with obstructive voiding symptoms with abnormal appearing prostate on CT scan. This could be due to the previous surgery he had several years ago, especially with his normal PSA. Recommend keep Dover catheter at least 1 week. 2. Continue Flomax b.i.d. and will add Avodart 0.5 mg a day. If he cannot start spontaneously voiding after the Dover catheter is removed, will discuss cystoscopic exam with him. Thank you for this consultation. cc: MD Pasha Hylton MD
[2019-10-09] MEDS: AZACTAM 1 GM in NS 50 ML IV SCH ×3 (04:52→21:42)
[2019-10-09] MEDS: PRILOSEC PO SCH (06:22)
[2019-10-09] MEDS: DUONEB (A & A) INH SCH ×5 (07:32→23:50)
[2019-10-09] MEDS: MUCOMYST 20% INH SCH ×2 (07:33→19:37)
--- NOTE | 2019-10-09 08:25 | PROGRESS NOTE ---
DATE: 10/09/2019 SUBJECTIVE: Mr. Menjivar is doing fair. Last night, the patient was restless, did not sleep well. No high-grade fever or chills. No nausea or vomiting. No typical chest pain. Appreciate Dr. Hanson help managing obstructive uropathy. I had lengthy discussion with his sister yesterday about his condition and plan. They are in agreement to go to rehab. The patient is tolerating food well. OBJECTIVE: Vital Signs: Noted. Neck: Supple. No JVD. Lungs: Bibasilar crepitations. Heart: S1 and S2 heard. Abdomen: Soft, globular. Bowel sounds present. Extremities: No cyanosis, clubbing. No acute DVT. 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 Able to move all 4 limbs. LABORATORY DATA: Done yesterday and reviewed. ASSESSMENT: The patient does have multilobar pneumonia most likely due to aspiration, obstructive uropathy, schizophrenia, morbid obesity. PLAN: Continue current treatment. Possible discharge early next week to assisted. We will continue GI soft diet. The patient will need IV antibiotics. cc: Pasha Goodrich MD
[2019-10-09] MEDS: MIRALAX PO SCH (09:55)
[2019-10-09] MEDS: ZITHROMAX 500 MG/NS 500 MG/250 ML IVPB IV SCH (09:55)
[2019-10-09] MEDS: FLOMAX PO SCH ×2 (09:56→21:42)
[2019-10-09] MEDS: GLUCOPHAGE XR PO SCH (09:56)
[2019-10-09] MEDS: COLACE PO SCH ×2 (09:56→21:43)
[2019-10-09] MEDS: FOLIC ACID PO SCH (09:56)
[2019-10-09] MEDS: COGENTIN PO SCH ×2 (09:56→21:43)
[2019-10-09] MEDS: ASPIRIN EC PO SCH (09:56)
[2019-10-09] MEDS: TOPROL XL PO SCH (09:56)
[2019-10-09] MEDS: VANCOMYCIN 2 GM in NS 500 ML IV SCH (18:51)
[2019-10-09] MEDS: CLINIMIX E 4.25%-5% SOLUTION 1,000 ML IV SCH (18:51)
[2019-10-09] MEDS: LOVENOX SUBQ SCH (21:42)
[2019-10-09] MEDS: ZYPREXA PO SCH (21:42)
[2019-10-09] MEDS: REQUIP PO SCH (21:42)
[2019-10-09] MEDS: DEPAKOTE ER PO SCH (21:42)
--- NOTE | 2019-10-09 21:42 | PROGRESS NOTE ---
DATE: 10/09/2019 We appreciated progress of care, complications, change in diagnosis and instructions to patient. SUBJECTIVE: We note the level of consciousness, bed/chair position, family presence if any, level of lethargy, feeling of symptoms and changes from baseline condition/symptom. Patient is lying in bed with O2 at 2 L in no acute distress at the present time. Patient appears alert. OBJECTIVE: Vital Signs: Temperature 97.9, pulse rate 105, respiratory rate 16, blood pressure 127/75, O2 saturation 91 per nasal cannula at 3 L. Respiratory: Coughing noted with shortness of breath. Decreased air entry bilaterally. HEENT: Pupils are equal, reactive. Neck: Supple. Abdomen: Distended, soft, bowel sounds in all 4 quadrants. Cardiovascular: S1 and S2 appreciated. Extremities: Trace edema in lower extremities bilaterally. MANAGEMENT: [id number] evaluation completed by Dr. Garcia. MAE did scribing only. LABORATORY: White blood cells 6.50. Red blood cells 3.44. Hemoglobin 9.4. Hematocrit 31.6. Platelet count 361. Sodium 142. Potassium 3.8. Chloride 102. Carbon dioxide 29. AST 23. ALT 14. Total protein 5.6. Albumin 2.2. No recent chest x-rays. Last x-ray on 10/06/2019. ASSESSMENT: 1. Aspiration pneumonia. 2. Chronic obstructive pulmonary disease. 3. Urinary tract infection. 4. Dysphagia. PLAN: 1. Continue oral nutrition. 2. Continue current antibiotics and bronchodilators. 3. Continue DVT prophylaxis with Lovenox. Input was appreciated from admitting MD and other teams on the case. EVALUATION TIME: 31 minutes. Dictated by MAE Boateng for Angella Garcia MD cc: MAE Boateng MD Bharat K. Vakharia, MD
[2019-10-09] MEDS: LIPITOR PO SCH (21:43)
[2019-10-09] MEDS: AVODART PO SCH (21:43)
[2019-10-09] MEDS: KLONOPIN PO SCH (21:43)
[2019-10-10] MEDS: DUONEB (A & A) INH SCH ×6 (08:20→23:14)
[2019-10-10] MEDS: MUCOMYST 20% INH SCH ×2 (08:21→19:43)
[2019-10-10] MEDS: FLOMAX PO SCH ×2 (08:40→20:42)
[2019-10-10] MEDS: MIRALAX PO SCH (08:40)
[2019-10-10] MEDS: PRILOSEC PO SCH (08:40)
[2019-10-10] MEDS: TOPROL XL PO SCH (08:40)
[2019-10-10] MEDS: FOLIC ACID PO SCH (08:40)
[2019-10-10] MEDS: COLACE PO SCH ×2 (08:40→20:42)
[2019-10-10] MEDS: COGENTIN PO SCH ×2 (08:40→20:42)
[2019-10-10] MEDS: AZACTAM 1 GM in NS 50 ML IV SCH ×3 (08:40→23:41)
[2019-10-10] MEDS: GLUCOPHAGE XR PO SCH (08:40)
[2019-10-10] MEDS: ASPIRIN EC PO SCH (08:40)
[2019-10-10] MEDS: CLINIMIX E 4.25%-5% SOLUTION 1,000 ML IV SCH (14:57)
--- NOTE | 2019-10-10 15:14 | PROVIDER PROGRESS NOTE ---
Progress Note We appreciated progress of care, complications, change in diagnosis and instructions to patient. SUBJECTIVE: We note the level of consciousness, bed/chair position, family presence if any, level of lethargy, feeling of symptoms and changes from baseline condition/symptom. Patient is lying in bed with O2 at 2 L in no acute distress at the present time. Patient appears alert. OBJECTIVE: Vital Signs: Temperature 98.1, pulse rate 94, respiratory rate 20, blood pressure 118/61, O2 saturation 98% per nasal cannula at 4 L. Respiratory: Decreased air entry bilaterally. HEENT: Pupils are equal, reactive. Neck: Supple. Abdomen: Distended, soft, bowel sounds in all 4 quadrants. Cardiovascular: S1 and S2 appreciated. Extremities: Trace edema in lower extremities bilaterally. Management and [id number] evaluation completed by Dr. Garcia. MAE Boateng did scribing only. LABORATORY: White blood cells 6.50. Red blood cells 3.44. Hemoglobin 9.4. Hematocrit 31.6. Platelet count 361. Sodium 142. Potassium 3.8. Chloride 102. Carbon dioxide 29. AST 23. ALT 14. Total protein 5.6. Albumin 2.2. No recent chest x-rays. Last x-ray on 10/06/2019. ASSESSMENT: 1. Aspiration pneumonia. 2. Chronic obstructive pulmonary disease. 3. Urinary tract infection. 4. Dysphagia. PLAN: 1. Continue oral nutrition. 2. Continue current antibiotics and bronchodilators. 3. Continue DVT prophylaxis with Lovenox. 4. Will titrate supplemental O2 per patient response and protocol Input was appreciated from admitting MD and other teams on the case. EVALUATION TIME: 34 minutes.
[2019-10-10 17:26] LABS: CREATININE 0.7 mg/dL (0.7-1.2)
[2019-10-10] MEDS: VANCOMYCIN 1,700 MG in NS 250 ML IV SCH (18:55)
--- NOTE | 2019-10-10 19:16 | PROGRESS NOTE ---
DATE: 10/10/2019 HISTORY OF PRESENT ILLNESS: This is a 69-year-old white gentleman sitting out of the bed in the recliner. Admitted on 09/30/2019 with confusion and agitation. The patient was found to have a urinary tract infection. Interval history was reviewed. REVIEW OF SYSTEMS: He wants to take the Dover out. H and P was reviewed. PAST MEDICAL HISTORY: Reviewed. PAST SURGICAL HISTORY: Reviewed. MEDICINES: Reviewed. ALLERGIES: Penicillin, sulfa. PHYSICAL EXAMINATION: Vital Signs: Temperature is 98.1 degrees, pulse 94, blood pressure 118/61. On 4 L nasal cannula, 96%. I's and O's negative, -2.9. HEENT: Within normal limits. Neck: Supple. Chest: Clear. Cardiovascular: Heart sounds are regular. Abdomen: Belly is soft. No signs of peritonitis. No peripheral edema or cyanosis. Neurologic: No obvious neurological deficits. INVESTIGATIONS: On 10/08, white cell count was 6.3, hematocrit 32, platelets 361. Sodium 142, potassium 3.8, chloride 102, BUN 22, creatinine 0.8, glucose 97. LFTs were normal. Repeat urine culture on 10/07/2019 was negative. Blood cultures are negative. Stool for occult blood negative. Urine cultures: Enterococcus faecalis group D, sensitive to penicillin. ASSESSMENT AND PLAN: 1. Acute metabolic encephalopathy, improving. 2. Enterococci group D penicillin-sensitive urinary tract infection. Discontinue Dover. Apparently, patient pulled out on his own. Continue on IV vancomycin and aztreonam 1 gram every 8 hours. 3. Benign prostatic hypertrophy, on Flomax 0.4 p.o. b.i.d. and Avodart 0.5 at bedtime. Continue to monitor postvoid residual urine. 4. Constipation, on MiraLAX. 5. Deep venous thrombosis prophylaxis with Lovenox 6. Gastrointestinal prophylaxis with Prilosec. 7. Bipolar disorder on Xyprexa, Depakote, Klonopin and Cogentin. Continue IV Clinimix. 8. Type 2 diabetes, on metformin. Blood sugars doing well. Will check labs in the morning. LEVEL OF DOCUMENTATION: Thirty-five minutes. cc: MD Pasha Gonzalez MD
[2019-10-10] MEDS: AVODART PO SCH (20:41)
[2019-10-10] MEDS: KLONOPIN PO SCH (20:42)
[2019-10-10] MEDS: ZYPREXA PO SCH (20:42)
[2019-10-10] MEDS: LIPITOR PO SCH (20:42)
[2019-10-10] MEDS: REQUIP PO SCH (20:42)
[2019-10-10] MEDS: DEPAKOTE ER PO SCH (20:42)
[2019-10-10] MEDS: LOVENOX SUBQ SCH (20:44)
[2019-10-11] MEDS: PRILOSEC PO SCH (06:08)
--- NOTE | 2019-10-11 07:23 | Diag Imaging Result Doc PS360 ---
EXAM: CHEST-1 VIEW 10/11/2019 HISTORY: SOB TECHNIQUE: AP portable at 0619 COMMENT: There is alveolar opacity in the inferior portion of the right upper lobe and a small opacity is present in the left base behind the heart. The inspiration is generally less optimal than on 10/06/2019, however otherwise are has been no significant change. IMPRESSION: Right upper lobe pneumonia, stable. Electronically signed by Durga Stephens 10/11/2019 7:21 AM
[2019-10-11 08:08] LABS: BASO# 0.02 X1000 (0.0-0.2); BASO% 0.4 % (0.0-0.8); EOS# 0.23 X1000 (0.0-0.7); EOS% 4.6 % (0.0-10.0); HEMATOCRIT 31.4 % (42.0-52.0); HEMOGLOBIN 9.1 g/dL (14.0-18.0); LYMPH# 1.49 X1000 (1.2-3.4); LYMPH% 30.1 % (20.5-51.1); MCH 26.8 PG (27-31); MCV 92.4 FL (81-99); MONO# 0.76 X1000 (0.11-0.59); MONO% 15.4 % (1.7-9.3); MPV 9.1 FL (7.4-10.4); NEUT# 2.35 X1000 (1.4-6.5); NEUT% 47.5 % (42.2-75.2); PLT 324 X1000 (130-400); RDW 15.7 % (11.5-14.5); WBC 4.95 X1000 (4.8-10.8)
[2019-10-11] MEDS: DUONEB (A & A) INH SCH ×5 (08:47→23:19)
[2019-10-11] MEDS: MUCOMYST 20% INH SCH ×2 (08:47→20:20)
[2019-10-11 09:10] LABS: AGAP 6; BUN 14 mg/dL (8-22); CALCIUM 9.2 mg/dL (8.8-10.2); CHLORIDE 104 mmol/L (98-107); COSMO 288; CREATININE 0.8 mg/dL (0.7-1.2); ESTIMATED GFR > 60; GLUCOSE 104 mg/dL (70-104); POTASSIUM 4.2 mmol/L (3.5-5.1); SODIUM 144 mmol/L (136-145); TCO2 34 mmol/L (25-35)
[2019-10-11] MEDS: AZACTAM 1 GM in NS 50 ML IV SCH ×2 (10:39→18:33)
[2019-10-11] MEDS: MIRALAX PO SCH (10:39)
[2019-10-11] MEDS: FLOMAX PO SCH ×2 (10:40→22:59)
[2019-10-11] MEDS: FOLIC ACID PO SCH (10:40)
[2019-10-11] MEDS: COGENTIN PO SCH ×2 (10:40→23:00)
[2019-10-11] MEDS: ASPIRIN EC PO SCH (10:40)
[2019-10-11] MEDS: COLACE PO SCH ×2 (10:40→23:00)
[2019-10-11] MEDS: GLUCOPHAGE XR PO SCH (10:41)
[2019-10-11] MEDS: TOPROL XL PO SCH (10:41)
[2019-10-11] MEDS: CLINIMIX E 4.25%-5% SOLUTION 1,000 ML IV SCH (12:43)
[2019-10-11] MEDS: VANCOMYCIN 1,700 MG in NS 250 ML IV SCH (12:44)
--- NOTE | 2019-10-11 15:13 | PROGRESS NOTE ---
DATE: 10/11/2019 SUBJECTIVE: A 69-year-old, white gentleman. We discontinued Dover last night at his request. Actually, he pulled it out, and since then, he has a bladder retention. Last night, the nurses reported 800 mL of urine. Straight catheterization was done, and this morning 600 mL, and Dover was advised to reinsert. He also had a chest x-ray with right upper lobe infiltrate present. The patient is not offering any complaints. OBJECTIVE: Vital Signs: Temperature is 98.4 degrees, pulse 104, blood pressure is 139/68, on 3 L nasal cannula, saturating 96%. I's and O's negative by 4.2 L. Chest: Bilateral air entry. He has a deformed clavicle on the left side. Heart: Distant heart sounds. Abdomen: Belly is soft, obese. Extremities: No peripheral edema. Neurologic: No obvious deficits noted. INVESTIGATIONS: CBC: White cell count 4.9, hematocrit 32, platelets 324,000. SMA-7 was normal. Chest x-ray: Right upper lobe infiltrate. Repeat blood cultures and urine cultures were negative. ASSESSMENT AND PLAN: 1. Right upper lobe pneumonia. 2. Status post left clavicle fracture. 3. Bladder retention. 4. Enterococci group D. 5. Benign prostatic hypertrophy. 6. Constipation. PLAN: Plan of care is: 1. Continue on IV vancomycin and aztreonam. 2. Reinsert Dover. 3. Continue on Flomax and Avodart. 4. DVT and GI prophylaxis. 5. Diabetes is doing very well, currently stable. Continue present treatment. LEVEL OF DOCUMENTATION: 25 minutes. cc: MD Pasha Gonzalez MD
--- NOTE | 2019-10-11 19:04 | PROVIDER PROGRESS NOTE ---
Progress Note Progress Note We appreciated progress of care, complications, change in diagnosis and instructions to patient. SUBJECTIVE: We note the level of consciousness, bed/chair position, family presence if any, level of lethargy, feeling of symptoms and changes from baseline condition/symptom. Patient is lying in bed with O2 at 2 L in no acute distress at the present time. Patient appears alert. OBJECTIVE: Vital Signs: Temperature 98.1, pulse rate 94, respiratory rate 20, blood pressure 136/75, O2 saturation 100% per nasal cannula at 4L/NC. HEENT: Atraumatic, Normocephalic, PERRLA NECK: supple, trachea midline Respiratory: Decreased air entry bilaterally. HEENT: Pupils are equal, reactive. Neck: Supple. Abdomen: Distended, soft, bowel sounds in all 4 quadrants. Cardiovascular: S1 and S2 appreciated. Extremities: Trace edema in lower extremities bilaterally. Management and [id number] evaluation completed by Dr. Garcia. MAE Boateng did scribing only. Laboratory Results 10/11/19 10/11/19 07:30 07:30 WBC 4.95 RBC 3.40 L Hgb 9.1 L Hct 31.4 L MCV 92.4 MCH 26.8 L MCHC 29.0 L RDW Std Deviation 15.7 H Plt Count 324 MPV 9.1 Immature Gran % (Auto) 2.0 H Neut % (Auto) 47.5 Lymph % (Auto) 30.1 [place] % (Auto) 15.4 H Eos % (Auto) 4.6 Baso % (Auto) 0.4 Immature Gran # (Auto) 0.10 H Neut # (Auto) 2.35 Lymph # (Auto) 1.49 [place] # (Auto) 0.76 H Eos # (Auto) 0.23 Baso # (Auto) 0.02 Sodium 144 Potassium 4.2 Chloride 104 Carbon Dioxide 34 Anion Gap 6 BUN 14 Creatinine 0.8 Estimated GFR/1.73 m2 > 60 BUN/Creatinine Ratio 18 Glucose 104 Calculated Osmolality 288 Calcium 9.2 ASSESSMENT: 1. Aspiration pneumonia. 2. Chronic obstructive pulmonary disease. 3. Urinary tract infection. 4. Dysphagia. PLAN: 1. Continue oral nutrition. 2. Continue current antibiotics and bronchodilators. 3. Continue DVT prophylaxis with Lovenox. 4. Will titrate supplemental O2 per patient response and protocol Input was appreciated from admitting MD and other teams on the case.
[2019-10-11] MEDS: REQUIP PO SCH (22:58)
[2019-10-11] MEDS: DEPAKOTE ER PO SCH (22:58)
[2019-10-11] MEDS: KLONOPIN PO SCH (22:58)
[2019-10-11] MEDS: LIPITOR PO SCH (22:59)
[2019-10-11] MEDS: ZYPREXA PO SCH (23:00)
[2019-10-11] MEDS: AVODART PO SCH (23:00)
[2019-10-11] MEDS: LOVENOX SUBQ SCH (23:01)
[2019-10-12] MEDS: AZACTAM 1 GM in NS 50 ML IV SCH ×3 (02:28→16:52)
[2019-10-12] MEDS: VANCOMYCIN 1,700 MG in NS 250 ML IV SCH (05:42)
[2019-10-12] MEDS: CLINIMIX E 4.25%-5% SOLUTION 1,000 ML IV SCH (06:09)
[2019-10-12] MEDS: PRILOSEC PO SCH (06:09)
[2019-10-12] MEDS ORDERED: LASIX IV ONE (06:40)
[2019-10-12] MEDS: MUCOMYST 20% INH SCH ×2 (08:02→19:24)
[2019-10-12] MEDS: DUONEB (A & A) INH SCH ×5 (08:02→23:03)
--- NOTE | 2019-10-12 08:07 | PROGRESS NOTE ---
DATE: 10/12/2019 SUBJECTIVE: Mr. Menjivar is doing fair. His oral intake seems to be improving. No episode of choking. Patient is getting Clinimix plus we are advancing his diet gradually. Still episode of aspiration cannot be ruled out completely. No high-grade fever or chills. The patient seems to be gaining his strength back. At times, hypoxemic even with oxygen. O2 saturation staying between 91-92% on oxygen. Cough with scanty sputum production. No diarrhea, blood, or mucus in the stool. No typical chest pain. No history suggestive of psychosis. OBJECTIVE: Vital Signs: Blood pressure 127/67, pulse 109, respirations 21, temperature 97.9 degrees. Skin: Normal turgor. HEENT: Head atraumatic, normocephalic. [place] conjunctivae. Anicteric sclerae. Extraocular muscle movement normal. Fundus cannot be penetrated. Good oral hygiene. No tonsillopharyngeal congestion or exudate. Ears and nose benign. Neck: Supple. No JVD, thyromegaly, or lymphadenopathy. Chest: Bibasilar crepitation. Occasional wheezing. Heart: S1 and S2 heard. Abdomen: Soft, globular. Bowel sounds present. Extremities: No cyanosis, clubbing. No acute DVT. 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 Able to move all 4 limbs. Laboratory Data: Done yesterday, reviewed. ASSESSMENT: The patient's problems include: 1. Right upper lobe pneumonia. 2. Benign prostatic hypertrophy and urinary retention. 3. Patient does have multilobar pneumonia. 4. Schizophrenia. 5. Gastritis and reflux disease. 6. Restless legs syndrome. 7. Chronic obstructive pulmonary disease. 8. Hyperlipidemia. PLAN: His current medication noted. At times, patient is tachycardic. I am going to increase his beta angela. Continue the rest of the treatment. Close observation. The patient is needing two IV antibiotics, pulmonary toilet, IV nutrition, pulmonary consultation and care. It is surprises me his insurance company is telling us he does not qualify for inpatient care. I had talked to case coordinator to do the appeal. This patient also has a UTI, too sick to be treated outpatient. He is getting some better. We are planning to discharge him to rehab soon. cc: Pasha Goodrich MD
[2019-10-12] MEDS: GLUCOPHAGE XR PO SCH (09:33)
[2019-10-12] MEDS: COGENTIN PO SCH ×2 (09:33→20:51)
[2019-10-12] MEDS: FOLIC ACID PO SCH (09:33)
[2019-10-12] MEDS: COLACE PO SCH ×2 (09:33→20:49)
[2019-10-12] MEDS: FLOMAX PO SCH ×2 (09:33→20:50)
[2019-10-12] MEDS: ASPIRIN EC PO SCH (09:33)
[2019-10-12] MEDS: TOPROL XL PO SCH ×2 (09:34→20:49)
[2019-10-12] MEDS: MIRALAX PO SCH (09:34)
[2019-10-12] MEDS: REQUIP PO SCH (20:50)
[2019-10-12] MEDS: KLONOPIN PO SCH (20:50)
[2019-10-12] MEDS: LIPITOR PO SCH (20:50)
[2019-10-12] MEDS: LOVENOX SUBQ SCH (20:50)
[2019-10-12] MEDS: DEPAKOTE ER PO SCH (20:50)
[2019-10-12] MEDS: ZYPREXA PO SCH (20:50)
[2019-10-12] MEDS: AVODART PO SCH (20:50)
[2019-10-13] MEDS: CLINIMIX E 4.25%-5% SOLUTION 1,000 ML IV SCH ×2 (02:43→23:55)
[2019-10-13] MEDS: VANCOMYCIN 1,700 MG in NS 250 ML IV SCH ×2 (02:43→18:12)
[2019-10-13] MEDS: AZACTAM 1 GM in NS 50 ML IV SCH ×4 (02:43→23:54)
[2019-10-13] MEDS: DUONEB (A & A) INH SCH ×5 (07:44→23:31)
--- NOTE | 2019-10-13 08:18 | PULMONOLOGY PROGRESS NOTE ---
DATE: 10/12/2019 SUBJECTIVE: The patient is awake, alert, and conversant. He reports he feels better. He denies shortness of breath today. He reports he has been getting out of the bed to eat. OBJECTIVE: Vital Signs: The patient has been afebrile for the last 24 hours. Blood pressure 121/79, heart rate 99, respiratory rate 17, oxygen saturation 98% on 3 L per nasal cannula. HEENT: Pupils are equal and reactive. Oropharynx appears clear. Neck is supple. Chest reveals good air entry bilaterally with minimal wheezing. Cardiac Examination: S1-S2. Abdomen is obese and soft. Extremities: Reveal trace edema. Laboratories: White blood count 4.95, hemoglobin 9.1, platelet count 324,000. IMPRESSION: A 69-year-old with: 1. Aspiration pneumonia. 2. Dysphagia. 3. Chronic obstructive pulmonary disease. 4. Urinary tract infection. 5. Schizophrenia. 6. Benign prostatic hypertrophy. DISCUSSION: A 69-year-old with problems outlined above. His schizophrenia makes management more complicated and is delaying discharge. Clinically, he appears to be improving with less wheezing. He reports he is tolerating his nutritional intake. Chest x-ray from yesterday was reviewed and continues to reveal an area of abnormality in the right upper lobe. PLAN: 1. Continue current antibiotic regimen. 2. Cautious p.o. intake. 3. Continue current bronchodilator regimen. 4. Anticipate the need for rehab at the time of discharge. cc: MD Pasha Matthews MD
[2019-10-13] MEDS: PRILOSEC PO SCH (08:26)
[2019-10-13] MEDS: FLOMAX PO SCH ×2 (08:28→20:36)
[2019-10-13] MEDS: COLACE PO SCH ×2 (08:28→20:36)
[2019-10-13] MEDS: GLUCOPHAGE XR PO SCH (08:28)
[2019-10-13] MEDS: MIRALAX PO SCH (08:28)
[2019-10-13] MEDS: FOLIC ACID PO SCH (08:28)
[2019-10-13] MEDS: ASPIRIN EC PO SCH (08:28)
[2019-10-13] MEDS: COGENTIN PO SCH ×2 (08:28→20:35)
[2019-10-13] MEDS: TOPROL XL PO SCH ×2 (08:28→20:36)
[2019-10-13 09:31] LABS: BASO# 0.05 X1000 (0.0-0.2); BASO% 0.9 % (0.0-0.8); EOS# 0.31 X1000 (0.0-0.7); EOS% 5.7 % (0.0-10.0); HEMATOCRIT 33.5 % (42.0-52.0); HEMOGLOBIN 9.7 g/dL (14.0-18.0); IMM GRAN# 0.08 X1000 (0.0-0.04); IMM GRAN% 1.5 % (0.0-0.5); LYMPH# 1.58 X1000 (1.2-3.4); LYMPH% 29.1 % (20.5-51.1); MCH 26.5 PG (27-31); MCV 91.5 FL (81-99); MONO# 0.78 X1000 (0.11-0.59); MONO% 14.4 % (1.7-9.3); NEUT# 2.63 X1000 (1.4-6.5); NEUT% 48.4 % (42.2-75.2); PLT 346 X1000 (130-400); RBC 3.66 XMIL (4.7-6.1); RDW 15.8 % (11.5-14.5); WBC 5.43 X1000 (4.8-10.8)
--- NOTE | 2019-10-13 09:40 | PROGRESS NOTE ---
DATE: 10/13/2019 SUBJECTIVE: Mr. Menjivar is doing fair. Mild cough. No expectoration. No high-grade fever or chills. At times, blood pressure was low. No nausea or vomiting. No typical chest pain or palpitations. The patient is ambulating with physical therapy. OBJECTIVE: Vital Signs: His vital signs are noted. Neck: Supple. No JVD. Lungs: Bibasilar crepitations. Heart: S1 and S2 heard. Abdomen: Soft, globular. Bowel sounds present. Central Nervous System: Alert, awake, able to move all 4 limbs. MEDICAL PROBLEMS: 1. Aspiration pneumonia on IV antibiotics. 2. Urinary tract infection. 3. Obstructive uropathy. 4. Enlarged prostate, needing catheter. 5. Gastritis and reflux disease. 6. Restless legs syndrome. 7. Hyperlipidemia. PLAN: The patient is waiting for rehab placement. I am planning to discharge him to rehab on oral clindamycin. Continue rest of the treatment. Patient's sister was present. The overall plan and prognosis discussed and she is in agreement. cc: Pasha Goodrich MD
[2019-10-13 10:30] LABS: AGAP 10; ALB/GLOB RATIO 0.8; ALBUMIN 2.8 g/dL (3.5-5.0); ALKALINE PHOSPHATASE 143 U/L (32-122); BUN 18 mg/dL (8-22); CALCIUM 9.2 mg/dL (8.8-10.2); CHLORIDE 100 mmol/L (98-107); COSMO 284; CREATININE 0.8 mg/dL (0.7-1.2); ESTIMATED GFR > 60; GLUCOSE 115 mg/dL (70-104); GOT 31 U/L (10-34); GPT 21 U/L (10-44); MAGNESIUM 1.7 mg/dL (1.5-2.7); POTASSIUM 4.5 mmol/L (3.5-5.1); SODIUM 141 mmol/L (136-145); TCO2 31 mmol/L (25-35); TOTAL BILIRUBIN 0.24 mg/dL (0.20-1.00); TOTAL PROTEIN 6.3 g/dL (6.3-8.3)
[2019-10-13] MEDS: MUCOMYST 20% INH SCH ×2 (11:23→19:55)
[2019-10-13] MEDS: REQUIP PO SCH (20:35)
[2019-10-13] MEDS: LOVENOX SUBQ SCH (20:36)
[2019-10-13] MEDS: DEPAKOTE ER PO SCH (20:36)
[2019-10-13] MEDS: ZYPREXA PO SCH (20:36)
[2019-10-13] MEDS: LIPITOR PO SCH (20:36)
[2019-10-13] MEDS: KLONOPIN PO SCH (20:36)
[2019-10-13] MEDS: AVODART PO SCH (20:36)
[2019-10-14] MEDS: PRILOSEC PO SCH (06:11)
[2019-10-14] MEDS: DUONEB (A & A) INH SCH ×3 (07:30→15:48)
[2019-10-14] MEDS: MUCOMYST 20% INH SCH (07:30)
--- NOTE | 2019-10-14 08:49 | PROGRESS NOTE ---
DATE: 10/14/2019 SUBJECTIVE: Mr. Menjivar is doing fair. No high-grade fever or chills. No nausea or vomiting. Oral intake is fair. No diarrhea, blood, or mucus in the stool. Occasional cough. No expectoration. The patient is still requiring at times oxygen at 4 L via nasal cannula. OBJECTIVE: Vital Signs: Noted. Neck: Supple. No JVD. Lungs: Bibasilar crepitations. Heart: S1 and S2 heard. Abdomen: Soft, globular. Bowel sounds present. Extremities: No cyanosis or clubbing. No acute DVT. 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 LABORATORY DATA: Done yesterday, reviewed. Will continue current treatment and close observation. The patient is waiting for senior living bed or rehab bed. Will continue current treatment and close observation. PROBLEM LIST: Aspiration pneumonia, urinary retention gastritis and reflux disease, restless legs syndrome, schizophrenia and hyperlipidemia. PLAN: Overall plan discussed with the patient and he is in agreement. cc: Pasha Goodrich MD
[2019-10-14] MEDS: AZACTAM 1 GM in NS 50 ML IV SCH ×2 (10:51→16:20)
[2019-10-14] MEDS: FLOMAX PO SCH (10:52)
[2019-10-14] MEDS: TOPROL XL PO SCH (10:52)
[2019-10-14] MEDS: COGENTIN PO SCH (10:52)
[2019-10-14] MEDS: GLUCOPHAGE XR PO SCH (10:52)
[2019-10-14] MEDS: ASPIRIN EC PO SCH (10:52)
[2019-10-14] MEDS: FOLIC ACID PO SCH (10:52)
[2019-10-14] MEDS: COLACE PO SCH (10:53)
[2019-10-14] MEDS: MIRALAX PO SCH (10:53)
[2019-10-14] MEDS ORDERED: VANCOMYCIN 1,900 MG in NS 500 ML IV SCH (12:30)
[2019-10-14 15:07] VITALS: BP 144/88
--- NOTE | 2019-10-14 16:40 | DISCHARGE SUMMARY ---
ADMISSION DATE: 09/30/2019 DISCHARGE DATE: 10/14/2019 FINAL DISCHARGE DIAGNOSES: 1. Aspiration pneumonia. 2. Obstructive uropathy and enlarged prostate. 3. Chronic obstructive pulmonary disease. 4. Restless legs syndrome. 5. Morbid obesity. 6. Gastritis and reflux disease. 7. Abnormal prostate on CT scan. 8. Hyperlipidemia. 9. Constipation. 10. Schizophrenia. 11. Chronic hypoxemic respiratory failure. 12. Metabolic syndrome. 13. Noninsulin-dependent diabetes mellitus. HISTORY AND HOSPITAL COURSE: Mr. Menjivar is a 69-year-old white gentleman admitted with increasing confusion, disorientation. The patient was not sleeping well. The patient did have some agitation. The patient was talking about hurting himself. Patient was sent to [facility]. Workup in the ER did show UTI and pneumonia. We admitted the patient to geropsychiatric floor. Initial plan was to get a psych evaluation but then we admitted the patient to the medical floor. The patient was treated with IV antibiotics, IV fluids, and supportive care. Hospital course was complicated by urinary retention. We put a Dover catheter. Urology consult obtained. Dr. Hanson evaluated the patient. One time patient pulled the catheter out. He was not able to void and we had to replace the catheter. Pulmonary consult obtained with Dr. Li who evaluated the patient. The patient was treated with IV antibiotics and pulmonary toilet. The patient had a modified barium swallow done. He was high risk for aspiration. We kept the patient NPO for a day and a half. We treated the patient with Clinimix and then gradually advanced diet. The patient was tolerating food well. Overall patient is doing better. Last chest x-ray did reveal pneumonia in the upper lobe. Overall patient is doing better. He is still weak, needing physical therapy. The patient does have a Dover catheter. I am planning to discharge patient to rehab. DISCHARGE CONDITION: Overall discharge condition satisfactory. DISCHARGE MEDICATIONS: As per separate sheet. LAB DATA: Blood work done yesterday, hemoglobin 9.7, hematocrit 33.5, WBC count 5.43, platelet count 346,000. Electrolytes were fairly benign. Blood gas done on October 03, pH 7.37, pCO2 59, PO2 was 70. D-dimer was 1.18. I did a CTA for pulmonary artery. It was negative for pulmonary embolism. RPR was nonreactive. The patient's urine culture grew enterococcus faecalis. Blood culture was negative. Flu test was negative. The patient had a CT scan of the abdomen and pelvis done which did reveal distention of urinary bladder, which improved after we put Dover catheter. Fairly diffuse mesenteric edema, patchy bibasilar infiltrate, and subsegmental atelectasis both lung bases. Mildly enlarged but very heterogeneous prostate. The patient will need to follow up with Dr. Hanson. Overall discharge condition satisfactory. The patient will take clindamycin as an outpatient, Flomax twice a day. Avodart was added. Continue rest of the treatment, bronchodilator care. cc: Pasha Goodrich MD
== END 2019-10-14 16:30 | DRG 178 ==
LOC: ED 14:39 → EDIPHOLD 16:35 → 3N 21:35
PROVIDERS: ADMIT Internal Medicine; ATTEND Internal Medicine